=== PATIENT | male | born 1935 | race Caucasian/White ===

== ENCOUNTER 2017-06-13 16:12 | Inpatient (IN) ==
[2017-06-13] MEDS ORDERED: Pantoprazole 80 MG in 0.9 % Sodium Chloride 50 ML IVPB ONE (16:24)
[2017-06-13] MEDS ORDERED: 0.9 % Sodium Chloride 1,000 ML IVC ONE (16:24)
[2017-06-13] MEDS ORDERED: Pantoprazole 40 MG in 0.9 % Sodium Chloride Mini Bag 100 ML IVC SCH (16:30)
[2017-06-13 16:58] LABS: Eosinophils % 0.5 %; Immature Granulocytes % 0.2 % (0-4); Mean Corpuscular Volume 101.3 fL (83.0-100.0)
[2017-06-13 16:59] LABS: Basophils % 0.5 %; Hematocrit 15.3 % (37.5-50.1); Lymphocytes # 1.1 K/mcL (0.6-4.6); Mean Corpuscular HGB Conc 32.7 g/dL (31.6-35.5); Mean Corpuscular Hemoglobin 33.1 pg (28.0-33.3); Mean Platelet Volume 13.5 fL (9.4-12.4); Monocytes # 0.3 K/mcL (0.0-1.3); Monocytes % 7.9 %; Neutrophils # 2.8 K/mcL (1.6-8.9); Red Blood Count 1.51 M/mcL (4.19-5.50); Red Cell Distribution Width 14.7 % (11.5-14.5); Segmented Neutrophils % 65.9 %
[2017-06-13 17:05] LABS: INR 1.7
[2017-06-13 17:07] LABS: Activated Partial Thrombo Time 32.1 Seconds (26.0-36.0)
[2017-06-13 17:08] LABS: Calcium 8.8 mg/dL (8.6-10.8)
[2017-06-13 17:15] LABS: Platelet Count 30 K/mcL (140-400)
[2017-06-13] MEDS: Pantoprazole 80 MG in 0.9 % Sodium Chloride 250 ML IVC SCH (17:27)
--- NOTE | 2017-06-13 17:37 | Emergency Department Note ---
Disposition Clinical Impression: Severe anemia, Thrombocytopenia, Hyperkalemia, Acute kidney injury GI bleed Qualifiers: GI bleed type/associated pathology: unspecified gastrointestinal hemorrhage type Qualified Code(s): K92.2 - Gastrointestinal hemorrhage, unspecified Leukopenia Qualifiers: Leukopenia type: unspecified Qualified Code(s): D72.819 - Decreased white blood cell count, unspecified Disposition: Admitted As Inpatient Condition: Undetermined Time of Disposition: 18:00 GI Bleed HPI - General Chief complaint: ED GI Bleed Stated complaint: GI bleed/low HGB 5.4/elevated Trop 0.83 Time Seen by Provider: 06/13/17 16:19 Source: patient, family, EMS, other Limitations: no limitations Nursing Notes Reviewed: Yes Vital Signs Reviewed: Yes - History of Present Illness HPI Narrative: 82-year-old male with past medical history for CHF, COPD, chronic kidney disease and diabetes and hypertension who was transferred from the [facility] secondary to severe anemia with possible GI bleed per history from family who states patient has been having bright red blood per rectum 4 days and is currently on [place]. Patient had hemoglobin checked 1 week ago which was 10. [facility]6. Patient is currently symptomatic with weakness pallor and inability to ambulate - Related Data Home Medications Medication Instructions Recorded Confirmed Apixaban [Eliquis] 2.5 mg PO BID 06/13/17 06/13/17 Aspirin 81 mg PO DAILY 06/13/17 06/13/17 Atorvastatin Calcium [Lipitor] 20 mg PO HS 06/13/17 06/13/17 Carvedilol 3.125 mg PO BID 06/13/17 06/13/17 Cholecalciferol (D-3) [Vitamin D] 2,000 unit PO DAILY 06/13/17 06/13/17 Collagenase Oint [Santyl] 1 appl TP DAILY 06/13/17 06/13/17 Furosemide [Lasix] 30 mg PO BID 06/13/17 06/13/17 Levothyroxine [Synthroid] 125 mcg PO 0630 06/13/17 06/13/17 Lidocaine Patch [Lidoderm 5% patch] 1 each TP DAILY 06/13/17 06/13/17 Naloxone HCl [Narcan] 4 mg NS AD PRN 06/13/17 06/13/17 Polyethylene Glycol 3350 [MiraLAX] 17 gm PO DAILY PRN 06/13/17 06/13/17 Pregabalin [Lyrica] 75 mg PO AD 06/13/17 06/13/17 Sod Chloride/B-6/Zinc Acet/Ca 1 - 3 spray TP DAILY 06/13/17 06/13/17 [Wound Cleanser] Allergies Allergy/AdvReac Type Severity Reaction Status Date / Time ciprofloxacin [From Cipro] AdvReac Unknown Verified 06/13/17 19:28 Review of Systems: Patient Denies fevers, chills, nausea, vomiting, chest pain, Diarrhea, dysuria. Patient admits to weakness, shortness of breath All systems ED: reviewed and negative except as stated. Review of Systems: As Per HPI Constitutional: Denies: fever Past Medical History - Past Medical History Attestation: Yes The following information was validated with the patient. Source: patient Medical history: Reports: atrial fibrillation, CHF, coronary artery disease, diabetes, GERD, hyperlipidemia, hypertension, renal disease, thyroid disease, other Psychiatric history: Reports: anxiety, depression - Social History Smoking Status: Former smoker Smokeless Tobacco Status: Yes Alcohol use: Reports: none Drug use: Reports: none Physical Exam Vital Signs Temperature 97.6 F 06/13/17 16:17 Pulse Rate 80 06/13/17 16:17 Respiratory Rate 20 06/13/17 16:17 Blood Pressure 111/52 06/13/17 16:17 O2 Sat by Pulse Oximetry 99 06/13/17 16:17 Temperature 97.6 F 06/13/17 16:17 Pulse Rate 80 06/13/17 16:30 Respiratory Rate 24 06/13/17 16:30 Blood Pressure 117/55 06/13/17 16:30 O2 Sat by Pulse Oximetry 99 06/13/17 16:30 Oxygen Delivery Oxygen Delivery Nasal Cannula Patient's 82-year-old male who is alert and oriented 3 with visible pallor but no diaphoresis. Patient is able to speak but has some conversational dyspnea while lying down. Rectal exam at bedside showed no gross hematuria. Dark stool in rectal vault - General Limitations: no limitations General appearance: alert - Head Head exam: atraumatic, normocephalic, normal inspection - Eye Eye exam: Present: normal appearance, PERRL, EOMI - ENT ENT exam: normal exam, normal oropharynx, mucous membranes moist - Neck Neck exam: Present: normal inspection, full ROM, trachea midline - Chest Chest inspection: Present: normal inspection, symmetric chest wall rise. Absent : tenderness, rash - Respiratory Respiratory exam: Present: normal lung sounds bilaterally - Cardiovascular Cardiovascular exam: Present: regular rate, normal rhythm, normal heart sounds - Abdominal Exam Abdominal exam: Present: soft, Non-Tender. Absent: tenderness, distention, guarding, rebound, rigidity - Extremities Exam Extremities exam: Absent: pedal edema - Back Exam Back exam: Absent: CVA tenderness (R), CVA tenderness (L) - Neurological Exam Neurological exam: Present: alert, oriented X3 Course - Consultations Consultation #1: Patient is accepted for admission by hospitalist Dr. Cuellar. Time: 17:52 Consultation #2: Dr. Espinoza of endoscopy as agreed to see the patient. He requests 5 mg of vitamin K. States the patient's has not had any active bleeding for one day and sees no need to give prothrombin complex at this time. He states he will make further orders for the patient. Time: 18:03 Vital Signs Temperature 97.6 F 06/13/17 16:17 Pulse Rate 80 06/13/17 16:17 Respiratory Rate 20 06/13/17 16:17 Blood Pressure 111/52 06/13/17 16:17 O2 Sat by Pulse Oximetry 99 06/13/17 16:17 Temperature 96.8 F L 06/14/17 15:46 Pulse Rate 83 06/14/17 18:00 Respiratory Rate 24 06/14/17 18:00 Blood Pressure 179/81 06/14/17 18:00 O2 Sat by Pulse Oximetry 95 06/14/17 18:00 Oxygen Delivery Oxygen Delivery Nasal Cannula GI Bleed - [facility] Narrative Medical decision making narrative: Patient transferred from the [place] emergency department for GI bleed with a hemoglobin of 5.4. patient was examined and determined to be clinically symptomatic for anemia. Rectal exam showed no hematochezia or gross blood. Patient's labs show he of 5.0 upon recheck. IV normal salineordered and initiatedtyped and crossmatch initiated, patient is currently maintaining vital signs within harshal but is in a critical situation and will require transfusion and close watch in ICU. patient's chemistries have noLevit is BUN/creatinine and potassium and patient also has an elevated troponin of 1.11. patient was accepted for admission by hospitalist . Dr. Espinoza has agreed to cover for endoscopy. - Lab Data Lab results reviewed: Yes I reviewed the patient's lab results. Lab results narrative: Short CBC 06/14/17 06/14/17 06/14/17 Range/Units 18:15 07:59 01:32 WBC 6.3 (4.3-11.1) K/mcL Hgb 8.0 L 7.4 L D 5.3 L* (12.9-16.9) g/dL Hct 23.5 L 22.5 L 16.5 L (37.5-50.1) % Plt Count 41 L (140-400) K/mcL Neutrophils # 4.3 (1.6-8.9) K/mcL BMP 06/14/17 Range/Units 05:10 Sodium 139 (136-145) mEq/L Potassium 5.7 H (3.5-4.5) mEq/L Chloride 106 (98-109) mEq/L Carbon Dioxide 13 L (19-29) mEq/L BUN 64 H (8-26) mg/dL Creatinine 2.38 H (0.72-1.25) mg/dL Glucose 129 H (70-99) mg/dL Calcium 8.3 L (8.6-10.8) mg/dL Cardiac Enzymes 06/14/17 06/13/17 Range/Units 05:10 23:33 Troponin I 1.46 H* 1.11 H* (0-0.03) ng/mL Liver Function 06/14/17 Range/Units 05:10 Total Bilirubin 1.8 H (0.2-1.2) mg/dL AST 440 H (5-34) Units/L ALT 523 H (0-55) Units/L Alkaline Phosphatase 76 (38-126) Units/L Albumin 2.8 L (3.5-5.0) g/dL Result diagrams: 06/14/17 18:15 06/14/17 05:10 Lab Results 06/13/17 06/13/17 06/13/17 Range/Units 16:49 16:49 16:49 WBC 4.2 L (4.3-11.1) K/mcL RBC 1.51 L (4.19-5.50) M/mcL Hgb 5.0 L* (12.9-16.9) g/dL Hct 15.3 L (37.5-50.1) % MCV 101.3 H (83.0-100.0) fL MCH 33.1 (28.0-33.3) pg MCHC 32.7 (31.6-35.5) g/dL RDW 14.7 H (11.5-14.5) % Plt Count 30 L* (140-400) K/mcL MPV 13.5 H (9.4-12.4) fL Immature Gran % 0.2 (0-4) % Seg Neutrophils % 65.9 % Lymphocytes % 25.0 % Monocytes % 7.9 % Eosinophils % 0.5 % Basophils % 0.5 % Neutrophils # 2.8 (1.6-8.9) K/mcL Lymphocytes # 1.1 (0.6-4.6) K/mcL Monocytes # 0.3 (0.0-1.3) K/mcL Eosinophils # 0.0 (0.0-0.6) K/mcL Basophils # 0.0 (0.0-0.2) K/mcL PT 18.0 H (9.4-12.1) Seconds INR 1.7 APTT 32.1 (26.0-36.0) Seconds Sodium 136 (136-145) mEq/L Potassium 5.0 H (3.5-4.5) mEq/L Chloride 103 (98-109) mEq/L Carbon Dioxide 18 L (19-29) mEq/L BUN 55 H (8-26) mg/dL Creatinine 2.18 H (0.72-1.25) mg/dL Est GFR ( Amer) 35 L (> 60) Est GFR (Non-Af Amer) 29 L (> 60) BUN/Creatinine Ratio 25 (6-26) Glucose 139 H (70-99) mg/dL Calculated Osmolality 299 (280-300) Calcium 8.8 (8.6-10.8) mg/dL Troponin I (0-0.03) ng/mL Blood Type Antibody Screen Antibody Identification MTS Gel Crossmatch 06/13/17 06/13/17 Range/Units 16:49 16:49 WBC (4.3-11.1) K/mcL RBC (4.19-5.50) M/mcL Hgb (12.9-16.9) g/dL Hct (37.5-50.1) % MCV (83.0-100.0) fL MCH (28.0-33.3) pg MCHC (31.6-35.5) g/dL RDW (11.5-14.5) % Plt Count (140-400) K/mcL MPV (9.4-12.4) fL Immature Gran % (0-4) % Seg Neutrophils % % Lymphocytes % % Monocytes % % Eosinophils % % Basophils % % Neutrophils # (1.6-8.9) K/mcL Lymphocytes # (0.6-4.6) K/mcL Monocytes # (0.0-1.3) K/mcL Eosinophils # (0.0-0.6) K/mcL Basophils # (0.0-0.2) K/mcL PT (9.4-12.1) Seconds INR APTT (26.0-36.0) Seconds Sodium (136-145) mEq/L Potassium (3.5-4.5) mEq/L Chloride (98-109) mEq/L Carbon Dioxide (19-29) mEq/L BUN (8-26) mg/dL Creatinine (0.72-1.25) mg/dL Est GFR ( Amer) (> 60) Est GFR (Non-Af Amer) (> 60) BUN/Creatinine Ratio (6-26) Glucose (70-99) mg/dL Calculated Osmolality (280-300) Calcium (8.6-10.8) mg/dL Troponin I 1.10 H* (0-0.03) ng/mL Blood Type O POSITIVE Antibody Screen POSITIVE Antibody Identification Anti-E MTS Gel Crossmatch See Detail - Radiology Data Radiology results reviewed: Yes I reviewed the patient's radiology results. Chest X-Ray 06/13/17 16:24 IMPRESSION: Limited negative portable chest radiograph. D/ / Miguel Bull MD / Miguel Bull MD Interpreting Provider: Miguel Bull MD - EKG Data EKG attestation: Yes I reviewed and interpreted this EKG. EKG results narrative: EKG taken 06/13/2017 at 1636 hrs. shows a paced rhythm at a rate of [address] elevations in leads patient's shows ST depression in leads 2, aVL, V4, V5 and V6 which is new when compared to previous EKG taken in June 2014. Attestation Statement - Attestation Attestation: I, Moises Wood, examined this patient and my medical decision-making was reviewed with the [employer] SPECIALIST/PA/Advanced Practice Nurse/Resident Physician. I agree with the documented findings, disposition and treatment plan as described except to the extent set forth below. 82-year-old male sent to the emergency department from the [place] for concerns of GI bleeding. Patient has had multiple episodes of bright red blood per rectum over the past week. He also takes iron pills so he has also had multiple black stools. Patient's hemoglobin dropped significantly over the past week. Patient is pale and has generalized weakness on exam and emergency department. Patient has not had hematochezia or diarrhea since yesterday. Last dose of Elliquis was this morning. Patient's hemoglobin returned at 5.0, patient's platelets returned at 30. I ordered platelet and red blood cell transfusion. Patient will be admitted to medicine for further care and evaluation. Resident spoke with the endoscopist who evaluated patient in the emergency department. Endoscopist requested 5 mg of vitamin K.
--- NOTE | 2017-06-13 18:50 | Internal Medicine Consult Note ---
Date of Encounter: 06/13/17 Time of Encounter: 18:48 - Assessment and Plan (1) Lower GI bleeding Current Visit: Yes Status: Acute Assessment and plan: This appears to be fairly significant with a 5 drop in hemoglobin over the last 2 weeks. Some of this also may be chronic, but again diverticular bleeding would be the most likely source, this does not appear to be colitis. AVMs would be less likely. He has not been unstable, therefore I do not believe he has upper GI bleeding. This is certainly compounded by platelet therapy, along with Eliquis. This is also compounded by thrombocytopenia which could be due to ITP, myelodysplastic syndrome, or something more ominous. I had a long discussion with the [id number] at this time, he is not a candidate at this time for endoscopy given his current frail state. He needs at least 24 hours if not more of tuneup before we can consider endoscopy. There is no way at this time he could get a prep down risk of aspiration is just too high. His prognosis therefore is somewhat guarded (2) Acute blood loss anemia Current Visit: Yes Status: Acute (3) Macrocytosis Current Visit: Yes Status: Acute Assessment and plan: To consider myelodysplasia, thyroid disease, or B12 or folate deficiency. (4) Hypoprothrombinemia Current Visit: Yes Status: Acute Assessment and plan: Due to antibiotics in the recent past, along with thrombin inhibitors. We will give vitamin K for an elevated INR, (5) Thrombocytopenia Current Visit: Yes Status: Acute Assessment and plan: Etiology unknown at this time. (6) CKD stage 3 due to type 2 diabetes mellitus Current Visit: Yes Status: Acute Internal Medicine - CN: HPI - Data of Consult Requesting Physician: Suraj Cuellar MD - Consult Narrative Reason for consult: Rectal bleeding, hemoglobin of bit of 5 History of present illness: Mr. Lynn is a 82 year old male who is seen in the emergency room. I was actually asked to see him at the request of the ER resident, and the hospitalist service. He's had 2 days of progressive weakness, in the last 5 days he's had some bright red rectal bleeding, which is improved over the past 24 hours. He's had little appetite, no fever, most of the data is taken from the [id number], he is lying in bed, somewhat restless, minimally tachypneic. Somewhat disoriented. Not diaphoretic. Moderately pale. This gentleman takes an aspirin a day along with Xarelto due to chronic atrial fibrillation. His daughter in law states that 2 weeks ago, [facility], he had significant bleeding from a diabetic ulcer which is now taken care of and no bleeding recently. Past Med Surg Social Fam HX - Past Medical History Medical history: atrial fibrillation, CHF, coronary artery disease, diabetes, GERD, hyperlipidemia, hypertension, renal disease, thyroid disease, other Psychiatric history: anxiety, depression - Past Surgical History Surgical History: appendectomy, coronary bypass (CABG), other (Multiple debridements to the foot for diabetic ulceration) - Social History Smoking Status: Former smoker Smokeless Tobacco Status: Yes Alcohol use: none Drug use: none ROS unobtainable: due to mental status Internal Medicine - CN: Meds 3 Allergy/AdvReac Type Severity Reaction Status Date / Time No Known Allergies Allergy Verified 06/13/17 16:16 Internal Medicine - CN: Exam - Constitutional Vitals: Temp Pulse Resp BP Pulse Ox 97.6 F 80 20 133/66 99 06/13/17 16:17 06/13/17 16:30 06/13/17 18:18 06/13/17 18:18 06/13/17 16:30 General appearance IM: Present: A&O X 1, disheveled, mild distress - Head Head exam: Present: atraumatic Additional comments: Appears somewhat edematous, and puffy. With mild macroglossia. - Eye Eye exam: Present: EOMI, sclera anicteric. Absent: conjuntiva pink - Respiratory Respiratory exam: Present: decreased breath sounds, CTAB, tachypnea. Absent: wheezes Additional comments: Poor shallow effort. - Cardiovascular Cardiovascular exam IM: Present: RRR Additional comments: Distant heart sounds, he is paced on the monitor, there are no murmurs noted. - GI/Abdominal GI/Abdominal exam IM: Present: normal bowel sounds, soft, no peritoneal signs. Absent: mass, pulsatile mass, rebound, rigid, splenomegaly - Rectal Rectal exam: Present: deferred Internal Medicine - CN: Reslt - Labs CBC & Chem 7: 06/13/17 16:49 06/13/17 16:49 - ABG Interpretation ABG results: PT/INR, D-dimer PT 18.0 Seconds (9.4-12.1) H 06/13/17 16:49 Consult Discharge Plan - Plan [facility]errals: [facility] [Primary Care Provider[facility] - Khadijah Carrasco MD [Family Provider] -
[2017-06-13] MEDS ORDERED: 0.9 % Sodium Chloride 250 ML ONE (21:24)
[2017-06-13] MEDS ORDERED: Naloxone 0.4 MG/ML INJ IVP PRN (22:54)
[2017-06-13] MEDS ORDERED: Ondansetron 4 MG/2 ML VIAL IVP PRN (22:54)
--- NOTE | 2017-06-13 23:06 | Internal Med History&Physical ---
Date of Encounter: 06/13/17 Time of Encounter: 23:04 Assessment and Plan (1) Chronic anticoagulation Current visit: Yes Status: Acute Supple anticoagulation due to GI bleed. (2) Coronary artery disease Current visit: Yes Status: Acute Hold antiplatelets. Qualifiers: Coronary Disease-Associated Artery/Lesion type: [place] artery [place] vs. transplanted heart: [place] heart Associated angina: without angina Qualified Code(s): I25.10 - Atherosclerotic heart disease of [place] coronary artery without angina pectoris (3) CHF (congestive heart failure) Current visit: Yes Status: Acute Gentle IV fluid hydration. We will obtain echocardiogram records from the [place]. Qualifiers: Congestive heart failure type: unspecified congestive heart failure type Congestive heart failure chronicity: chronic Qualified Code(s): I50.9 - Heart failure, unspecified (4) Lower GI bleeding Current visit: Yes Status: Acute Consult to GI. Nothing by mouth. IV Protonix. Serial H&H. (5) Acute blood loss anemia Current visit: Yes Status: Acute Likely secondary to lower GI bleed. Transfuse 3 units of PRBC. (6) Thrombocytopenia Current visit: Yes Status: Acute Transfuse one unit platelets to maintain platelet count above 50,000. Per chart review last platelet count we have in our EMR is 196 k from June 2014. We will consult hematology. (7) CKD stage 3 due to type 2 diabetes mellitus Current visit: Yes Status: Acute Insulin sliding scale and blood glucose fingersticks every 6 hours. Avoid nephrotoxins. Monitor kidney function. (8) Elevated troponin Current visit: Yes Status: Acute Secondary to GI bleed and coronary artery disease. EKG reviewed by myself shows ventricularly paced rhythm 87 bpm. No evidence of ischemia on the EKG. We will trend troponin. (9) Code status needs review Current visit: Yes Status: Acute Patient is currently somnolent and lethargic and does not answer questions appropriately and therefore does not have decision-making capacity. Per review of [facility] paperwork he is DNR CC, documented to be addressed by the [facility] staff with the patient at a time when he had decision-making capacity. I will place a DNR CCA DNI order in the chart and will readdress with the patient and family tomorrow. Internal Medicine - H&P: HPI Chief complaint: Rectal bleeding Admitted From: Emergency Dept Plans for Post Hospital Care: Home History of present illness: Mr. Lynn is a 82 year old male with past medical history significant for atrial fibrillation on chronic anticoagulation with Eliquis, CHF, CAD, GERD, hypertension, hyperlipidemia, diabetes, chronic renal insufficiency was brought to the hospital for evaluation of weakness and rectal bleeding. He is a very poor historian. History is obtained from records. He had recently been admitted to the [facility] and discharged home one week ago. He had suffered a fall with bruising but no significant injury. He was sent to the hospital for evaluation of rectal bleeding and weakness. He currently reports no chest pain or shortness of breath. Per patient's nurse has had no rectal bleeding over last 2 hours. Family history was reviewed and found to be noncontributory due to the patient' s advanced age Past Med Surg Social Fam HX - Past Medical History Medical history: atrial fibrillation, CHF, coronary artery disease, diabetes, GERD, hyperlipidemia, hypertension, renal disease, thyroid disease, other Psychiatric history: anxiety, depression - Past Surgical History Surgical History: appendectomy, coronary bypass (CABG), other - Social History Smoking Status: Former smoker Smokeless Tobacco Status: Yes Alcohol use: none Drug use: none Internal Medicine - H&P: Meds Apixaban [Eliquis] 2.5 mg PO BID 06/13/17 [History] Aspirin 81 mg PO DAILY 06/13/17 [History] Atorvastatin Calcium [Lipitor] 20 mg PO HS 06/13/17 [History] Carvedilol 3.125 mg PO BID 06/13/17 [History] Cholecalciferol (D-3) [Vitamin D] 2,000 unit PO DAILY 06/13/17 [History] Collagenase Oint [Santyl] 1 appl TP DAILY 06/13/17 [History] Furosemide [Lasix] 30 mg PO BID 06/13/17 [History] Levothyroxine [Synthroid] 125 mcg PO 0630 06/13/17 [History] Lidocaine Patch [Lidoderm 5% patch] 1 each TP DAILY 06/13/17 [History] Naloxone HCl [Narcan] 4 mg NS AD PRN 06/13/17 [History] Polyethylene Glycol 3350 [MiraLAX] 17 gm PO DAILY PRN 06/13/17 [History] Pregabalin [Lyrica] 75 mg PO AD 06/13/17 [History] Sod Chloride/B-6/Zinc Acet/Ca [Wound Cleanser] 1 - 3 spray TP DAILY 06/13/17 [ History] 3 Allergy/AdvReac Type Severity Reaction Status Date / Time ciprofloxacin [From Cipro] AdvReac Unknown Verified 06/13/17 19:28 All Systems PM: A 10-system review of systems was performed and is negative for pertinent findings except as documented above in the HPI. - Constitutional Vitals: Temp Pulse Resp BP Pulse Ox 97.6 F 78 20 107/43 99 06/13/17 21:46 06/13/17 21:46 06/13/17 21:46 06/13/17 21:46 06/13/17 21:46 General appearance: Present: A&O X 1, disheveled, no acute distress - Eye Eye exam: Present: PERRL, conjuntiva pink, sclera anicteric Pupils: Present: PERRL - Respiratory Respiratory exam: Present: CTAB. Absent: accessory muscle use, rales, rhonchi, wheezes - Cardiovascular Cardiovascular exam: Present: RRR, +S1, +S2. Absent: diastolic murmur, gallop, rubs, systolic murmur - GI/Abdominal GI/Abdominal exam: Present: normal bowel sounds, soft, no peritoneal signs. Absent: distended, tenderness - Extremities Exam Extremities exam: Present: warm, radial pulses palpable and symmetrical. Absent : calf tenderness, cyanotic, pedal edema - Skin Skin exam: Present: dry, intact Additional comments: Right upper extremity bruise. Right lower leg bruising. Left great toe wound. Internal Med - H&P Results - Labs CBC & Chem 7: 06/13/17 16:49 06/13/17 16:49
[2017-06-14 01:39] LABS: Hematocrit 16.5 % (37.5-50.1)
[2017-06-14 01:42] LABS: Hemoglobin 5.3 g/dL (12.9-16.9)
[2017-06-14] MEDS ORDERED: Furosemide 40 MG/4 ML VIAL IVP ONE (01:49)
[2017-06-14] MEDS ORDERED: Furosemide 40 MG/4 ML VIAL ONE (01:51)
[2017-06-14] MEDS: Pantoprazole 80 MG in 0.9 % Sodium Chloride 250 ML IVC SCH ×2 (02:36→13:59)
[2017-06-14] MEDS ORDERED: 0.9 % Sodium Chloride 250 ML ONE (03:09)
[2017-06-14] MEDS: 0.9 % Sodium Chloride 1,000 ML IVC SCH ×2 (04:06→19:59)
[2017-06-14] MEDS ORDERED: *HR* LORazepam 2 MG/ML VIAL ONE (04:37)
[2017-06-14] MEDS: *HR* LORazepam 2 MG/ML VIAL IVP PRN ×2 (04:40→19:20)
[2017-06-14 05:34] LABS: INR 2.2; Prothrombin Time 23.9 Seconds (9.4-12.1)
[2017-06-14 05:48] LABS: Albumin 2.8 g/dL (3.5-5.0); Albumin/Globulin Ratio 0.9 (1.1-2.2); Bilirubin,Total 1.8 mg/dL (0.2-1.2); Calcium 8.3 mg/dL (8.6-10.8); Globulin 3.1 g/dL (2.4-3.5); Magnesium 1.8 mg/dL (1.6-2.6); Potassium 5.7 mEq/L (3.5-4.5); Total Protein 5.9 g/dL (6.0-8.3)
[2017-06-14 08:34] LABS: Eosinophils % 0.2 %; Nucleated Red Blood Cells 0.5 /100 WBC (0)
[2017-06-14 08:36] LABS: Hematocrit 22.5 % (37.5-50.1); Hemoglobin 7.4 g/dL (12.9-16.9); Immature Granulocytes % 0.3 % (0-4); Immature Platelets 20.9 % (1.1-6.1); Lymphocytes # 1.1 K/mcL (0.6-4.6); Lymphocytes % 17.4 %; Mean Corpuscular HGB Conc 32.9 g/dL (31.6-35.5); Mean Corpuscular Hemoglobin 31.9 pg (28.0-33.3); Mean Platelet Volume 12.7 fL (9.4-12.4); Monocytes # 0.9 K/mcL (0.0-1.3); Monocytes % 14.4 %; Neutrophils # 4.3 K/mcL (1.6-8.9); Red Blood Count 2.32 M/mcL (4.19-5.50); Red Cell Distribution Width 16.5 % (11.5-14.5); Segmented Neutrophils % 67.7 %
[2017-06-14 08:37] LABS: Platelet Count 41 K/mcL (140-400)
[2017-06-14] MEDS: ZINC ACET TP SCH (09:58)
[2017-06-14] MEDS: SOD CHLORIDE TP SCH (09:58)
[2017-06-14] MEDS: [UNRECOGNIZED DRUG - OTHER] TP SCH (09:58)
[2017-06-14] MEDS: B6 TP SCH (09:58)
--- NOTE | 2017-06-14 10:46 | Event Note ---
Date of Encounter: 06/14/17 Time of Encounter: 10:00 Patient remains somnolent; no further bleeding per nursing. He's had no further GI bleeding. Has recieved platlet pack, as well as 3 units of blood with HGB over 7 at this time. Will sign off for now. Noted DNR order.
[2017-06-14] MEDS ORDERED: *HR* FentaNYL (PF) 100 MCG/2 ML VIAL IVP ONE (11:51)
--- NOTE | 2017-06-14 14:53 | Internal Med Progress Note ---
Date of Encounter: 06/14/17 Time of Encounter: 14:54 - Assessment and plan (1) Altered awareness, transient Current Visit: Yes Status: Acute (2) GI bleed Current Visit: Yes Status: Acute Qualifiers: GI bleed type/associated pathology: unspecified gastrointestinal hemorrhage type Qualified Code(s): K92.2 - Gastrointestinal hemorrhage, unspecified (3) Acute blood loss anemia Current Visit: Yes Status: Acute (4) Thrombocytopenia Current Visit: Yes Status: Acute (5) CKD stage 3 due to type 2 diabetes mellitus Current Visit: Yes Status: Acute (6) Chronic anticoagulation Current Visit: Yes Status: Acute (7) Elevated troponin Current Visit: Yes Status: Acute - Time Spent With Patient The patient is confused, with elevated liver enzyme, total output hepatic encephalopathy we will check ammonia level. Close monitoring of electrolytes, add vitamin B1 , we will transfuse 1 unit of blood, stat ABG and chest x-ray. Close monitoring of volume status. If his blood gas is normal may consider small dose of respirdal. Add Kayexalate enema. Discuss with cardiology about patient elevated troponin most likely demand ischemia, continue Protonix drip, check H&H at 6:00 PM transfused 1 unit of blood if hemoglobin less than 8 Greater than 35 minutes - Subjective Interval history: Patient is so lethargic today., Patient is so restless at bed. Very confused. - Constitutional Vitals: Temp Pulse Resp BP Pulse Ox 97.1 F L 80 20 121/64 92 06/14/17 12:54 06/14/17 14:00 06/14/17 14:00 06/14/17 14:00 06/14/17 14:00 General appearance: Present: mild distress, morbidly obese - Head Head exam: Present: atraumatic, normocephalic - Neck Neck exam general surgery: Present: supple, trachea midline. Absent: lymphadenopathy - Respiratory Respiratory exam: Present: decreased breath sounds (Markedly diminished breathing sounds bilateral lung bases up to midlung). Absent: accessory muscle use, rales, rhonchi, wheezes - Cardiovascular Cardiovascular exam: Present: RRR, +S1, +S2. Absent: diastolic murmur, gallop, rubs, systolic murmur - GI/Abdominal GI/Abdominal exam: Present: normal bowel sounds, soft, no peritoneal signs. Absent: distended, tenderness - Extremities Exam Extremities exam: Present: warm, radial pulses palpable and symmetrical. Absent : calf tenderness, cyanotic, pedal edema Internal Medicine: Result - Labs CBC & Chem 7: 06/14/17 07:59 06/14/17 05:10 Labs: Short CBC 06/14/17 06/14/17 Range/Units 01:32 07:59 WBC 6.3 (4.3-11.1) K/mcL Hgb 5.3 L* 7.4 L D (12.9-16.9) g/dL Hct 16.5 L 22.5 L (37.5-50.1) % Plt Count 41 L (140-400) K/mcL Neutrophils # 4.3 (1.6-8.9) K/mcL BMP 06/14/17 05:10 Sodium 139 Potassium 5.7 H Chloride 106 Carbon Dioxide 13 L BUN 64 H Creatinine 2.38 H Glucose 129 H Calcium 8.3 L Cardiac Enzymes 06/13/17 06/14/17 Range/Units 23:33 05:10 Troponin I 1.11 H* 1.46 H* (0-0.03) ng/mL Liver Function 06/14/17 Range/Units 05:10 Total Bilirubin 1.8 H (0.2-1.2) mg/dL AST 440 H (5-34) Units/L ALT 523 H (0-55) Units/L Alkaline Phosphatase 76 (38-126) Units/L Albumin 2.8 L (3.5-5.0) g/dL - ABG Interpretation ABG results: PT/INR, D-dimer PT 23.9 Seconds (9.4-12.1) H 06/14/17 05:10 - VTE Documentation of Mechanical Device: Venous foot pump, device Consult Discharge Plan - Plan Referrals: Khadijah Carrasco MD [Family Provider] - [facility] [Primary Care Provider] -
[2017-06-14] MEDS ORDERED: Thiamine (B-1) 100 MG in D5% in Water 50 ML IVPB STA (15:12)
[2017-06-14 15:19] LABS: ABG Base Excess -6 mEq/L (-2 to 3); ABG HCO3 18 mEq/L (21-27); ABG Oxygen Saturation 93 % (95-98); ABG PCO2 33 mmHg (35-45); ABG PH 7.36 pH Units (7.32-7.45); ABG PO2 69 mmHg (85-104); ABG TCO2 19 mEq/L (20-26)
[2017-06-14] MEDS: Furosemide 20 MG/2 ML VIAL IVP ONE ×2 (15:27→15:35)
[2017-06-14] MEDS: RisperiDONE-M 1 MG TAB.RAPDIS PO SCH (15:31)
[2017-06-14] MEDS ORDERED: *HR* Dextrose 50 % in Water (Syg) 50 ML SYRINGE IVP PRN (15:56)
[2017-06-14] MEDS ORDERED: D5% in Water 1,000 ML IVC PRN (15:56)
[2017-06-14] MEDS ORDERED: Dextrose Gel 15 GM PO PRN ×2 (15:56)
--- NOTE | 2017-06-14 16:00 | Cardiology Consult Note ---
Date of Encounter: 06/15/17 Time of Encounter: 14:00 Assessment and Plan (1) Elevated troponin Current Visit: Yes Status: Acute Note minimal troponin elevation, of unclear significance, no acute EKG changes, suspect due to demand ischemia, will continue to trend enzemes and EKGs, would not plan provocative testing of invasive strategy unless pt develps chest pain or new EKG findings of ischemia. However in light of hx CAD post CABG '98, will start topical nitrates, order echo to eval for new wall motion abnormalites. (2) Coronary artery disease Current Visit: Yes Status: Chronic PT has known severe triple vessel disease, last provocative testing was over five years ago at the [facility], pt unable to compleat treadmill portion due to SOB Qualifiers: Coronary Disease-Associated Artery/Lesion type: [place] artery [place] vs. transplanted heart: [place] heart Associated angina: without angina Qualified Code(s): I25.10 - Atherosclerotic heart disease of [place] coronary artery without angina pectoris (3) CHF (congestive heart failure) Current Visit: Yes Status: Acute PTs reports he complains of shortness of breath frequently, has been unable to lie flat to sleep for several weeks, is non complaint with dietary sodium restrictions, daily exercise prescriped Qualifiers: Congestive heart failure type: unspecified congestive heart failure type Congestive heart failure chronicity: chronic Qualified Code(s): I50.9 - Heart failure, unspecified (4) Lower GI bleeding Current Visit: Yes Status: Acute (5) Chronic anticoagulation Current Visit: Yes Status: Acute (6) Confusion and disorientation Current Visit: Yes Status: Acute (7) Sick sinus syndrome due to sinoatrial node dysfunction Current Visit: Yes Status: Chronic Discussion w patient/family: The assessment and plan as outlined above was discussed with the patient and/or family members who expressed understanding and agreement. All questions were answered. Thank you for involving us in the care of your patient. Please call with any questions. History of Present Illness Consult date: 06/14/17 Requesting physician: Suraj Cuellar Consult reason: elevated troponin Chief complaint: rectal bleeding History of present illness: Mr. Lynn is a 82 year old male who presents with history of several weeks of weakness and rectal bleeding. He is chronically anticoagulated on Eliquis for primary stroke risk reduction for chronic a fib. He is confused, orientated to person only. Hx obtained from and son at bedside. He has also had several mechanical falls at home over the last several weeks, which his attributes to him feeling week. He becomes symptomatic with change in position from sitting to standing, and has had to hold onto something or someone to prevent falling when he first stands up. This sensation lasts up to a minute, and resolves if he stays standing and waits it out. He became confused intermittantly over the last several days. His reports this is the longest he has been confused. Past Med Surg Social Fam HX - Past Medical History Medical history: atrial fibrillation, CHF, coronary artery disease, diabetes, GERD, hyperlipidemia, hypertension, renal disease, thyroid disease, other Psychiatric history: anxiety, depression - Past Surgical History Surgical History: appendectomy, coronary bypass (CABG), other - Social History Smoking Status: Former smoker Smokeless Tobacco Status: Yes Alcohol use: none Drug use: none Medications and Allergies Apixaban [Eliquis] 2.5 mg PO BID 06/13/17 [History] Aspirin 81 mg PO DAILY 06/13/17 [History] Atorvastatin Calcium [Lipitor] 20 mg PO HS 06/13/17 [History] Carvedilol 3.125 mg PO BID 06/13/17 [History] Cholecalciferol (D-3) [Vitamin D] 2,000 unit PO DAILY 06/13/17 [History] Collagenase Oint [Santyl] 1 appl TP DAILY 06/13/17 [History] Furosemide [Lasix] 30 mg PO BID 06/13/17 [History] Levothyroxine [Synthroid] 125 mcg PO 0630 06/13/17 [History] Lidocaine Patch [Lidoderm 5% patch] 1 each TP DAILY 06/13/17 [History] Naloxone HCl [Narcan] 4 mg NS AD PRN 06/13/17 [History] Polyethylene Glycol 3350 [MiraLAX] 17 gm PO DAILY PRN 06/13/17 [History] Pregabalin [Lyrica] 75 mg PO AD 06/13/17 [History] Sod Chloride/B-6/Zinc Acet/Ca [Wound Cleanser] 1 - 3 spray TP DAILY 06/13/17 [ History] 3 Allergy/AdvReac Type Severity Reaction Status Date / Time ciprofloxacin [From Cipro] AdvReac Unknown Verified 06/13/17 19:28 ROS unobtainable: due to mental status (Some pertinent history obtained from pts and son, old records requested ) All Systems Review: A 10-system review of systems was performed and is negative for pertinent findings except as documented above in the HPI. Physical Examination Vital Signs, Last 4 Hours Temp Pulse Resp BP Pulse Ox 06/14/17 15:46 96.8 F L 80 22 128/104 94 06/14/17 15:00 81 20 155/66 94 06/14/17 14:00 80 20 121/64 92 06/14/17 13:00 76 16 153/66 94 06/14/17 12:54 97.1 F L 78 20 127/70 94 06/14/17 12:40 97.7 F 77 22 145/76 91 06/14/17 12:00 78 20 142/67 90 General: Other (Pt is confused, answers to name, does not know time or place, he does recognize and son. ) HEENT: Atraumatic, Normocephaly, Mucus Membranes Moist Neck: No JVD, Normal carotid pulses Cardiac: Reg Rate and Rhythm, Normal S1 and S2, No Murmur Lungs: Normal Breath Sounds Neuro: No focal deficits noted (confused, orientated x 1) Abdomen: Soft, Non-Tender (mildly distended, bowel sounds active. ) Skin: No rashes noted on visualized skin Musculoskeletal: No Chest Wall Tenderness Extremities: No Clubbing, No Cyanosis, Other (ulcer on tip of left great toe in surgical dressing. ) Results 06/15/17 04:33 06/14/17 05:10 Lab Results 06/13/17 06/14/17 06/14/17 23:33 01:32 05:10 WBC Hgb 5.3 L* Hct 16.5 L Plt Count INR 2.2 Sodium Potassium Chloride Carbon Dioxide BUN Creatinine Glucose Calcium Magnesium Total Bilirubin AST ALT Alkaline Phosphatase Troponin I 1.11 H* 06/14/17 06/14/17 06/14/17 05:10 05:10 07:59 WBC 6.3 Hgb 7.4 L D Hct 22.5 L Plt Count 41 L INR Sodium 139 Potassium 5.7 H Chloride 106 Carbon Dioxide 13 L BUN 64 H Creatinine 2.38 H Glucose 129 H Calcium 8.3 L Magnesium 1.8 Total Bilirubin 1.8 H AST 440 H ALT 523 H Alkaline Phosphatase 76 Troponin I 1.46 H* - EKG Interpretation EKG results cardiology: personally reviewed, ventricular paced rhythm Consult Discharge Plan - Plan Referrals: Khadijah Carrasco MD [Family Provider] - [facility],PCP [Primary Care Provider] -
[2017-06-14] MEDS: Nystatin SUSP 5 ML UD.LIQ PO SCH ×2 (17:23→19:56)
[2017-06-14] MEDS: Insulin LISPRO 300 UNITS/3 ML VIAL SQ SCH (17:32)
[2017-06-14 18:25] LABS: Hematocrit 23.5 % (37.5-50.1)
[2017-06-14 18:30] LABS: INR 2.2; Prothrombin Time 24.5 Seconds (9.4-12.1)
[2017-06-14 18:36] LABS: Phosphorous 5.1 mg/dL (2.3-4.7)
[2017-06-14] MEDS: Lactulose Oral Soln 20 GM/30 ML UDC PO SCH (19:56)
[2017-06-15] MEDS: Insulin LISPRO 300 UNITS/3 ML VIAL SQ SCH ×5 (00:18→23:59)
[2017-06-15] MEDS: *HR* LORazepam 2 MG/ML VIAL IVP PRN (00:29)
[2017-06-15] MEDS: Pantoprazole 80 MG in 0.9 % Sodium Chloride 250 ML IVC SCH ×2 (02:42→16:09)
[2017-06-15 05:05] LABS: Basophils % 0.4 %; Eosinophils # 0.1 K/mcL (0.0-0.6); Eosinophils % 1.5 %; Hematocrit 24.4 % (37.5-50.1); Hemoglobin 8.3 g/dL (12.9-16.9); Immature Granulocytes % 0.6 % (0-4); Lymphocytes # 0.8 K/mcL (0.6-4.6); Lymphocytes % 12.2 %; Mean Corpuscular Hemoglobin 32.2 pg (28.0-33.3); Mean Corpuscular Volume 94.6 fL (83.0-100.0); Monocytes # 0.8 K/mcL (0.0-1.3); Monocytes % 11.9 %; Red Blood Count 2.58 M/mcL (4.19-5.50); Red Cell Distribution Width 16.1 % (11.5-14.5); Segmented Neutrophils % 73.4 %
[2017-06-15 05:06] LABS: Platelet Count 32 K/mcL (140-400)
[2017-06-15 05:15] LABS: Phosphorous 3.6 mg/dL (2.3-4.7)
[2017-06-15 05:41] LABS: Platelet Estimate Marked Decrease (Normal)
[2017-06-15 08:07] LABS: INR 2.2
--- NOTE | 2017-06-15 09:04 | Oncology Inp Consult Note ---
Date of Encounter: 06/15/17 Time of Encounter: 09:00 Assessment and Plan (1) Severe anemia Status: Acute Assessment and plan: Cr anemia from prior labs, GI bleeding with Hgb of 5g, transferrin saturation still remains elevated, possibly due to ac bleed. B12, folate, TSH reviewed. Thrombocytopenia-recent hospitalization Rx for diabetic ulcer at [facility] d/marcel a wk ago, need to obtain prior labs and details of treatment. PS--few clumped/giant platelets, segmented neutrophils without immature blast looking cells. No tear drops or schiztocytes. He is s/p PRBC 4 and plt 1. Eliquis on hold. LFT abnormalities, elevated ammonia levels- Imaging US or Ct abd wo contrast to r/o cirrhosis or metastatic disease. GI bleed to be further evaluated with scope. Transfuse platelets if <30k and if he continues to have active bleeding. Rpt labs later today. Ordered further lab tests-SPEP, haptoglobulin, LDH, PS pathologist review. CT/MRI brain to further evaluate mental status/fall. PAtient is a DNR-CC Will follow up on above results. Discussed with medical attending. - Data of Consult Requesting Physician: Suraj Cuellar MD Primary Care Provider: [facility] Family Provider: Khadijah Carrasco - Consult Narrative Reason for consult: severe anemia, thrombocytopenia, bleeding History of present illness: Mr. Lynn is a 82 year old male with a medical history significant for atrial fibrillation, congestive heart failure, coronary artery disease outpatient anticoagulation with Eliquis, hypertension, diabetes mellitus status post admission to [facility] and discharged home a week ago for foot ulceration , weakness. Patient gives history as he is disoriented. Course patient is sent for further evaluation of his rectal bleeding, weakness. Patient presented to the ER with above symptoms and work showed hemoglobin of 5g, plt 32k, marked elevated AST/ALT, elevated bilirubin, renal insufficiency. Hematology consulted for thrombocytopenia. Prior lab work sfor comparision from . Cr anemia then. Had undergone scope for evaluation of suspected bleed in . Past Med Surg Social Fam HX - Past Medical History Medical history: atrial fibrillation, CHF, coronary artery disease, diabetes, GERD, hyperlipidemia, hypertension, renal disease, thyroid disease, other Psychiatric history: anxiety, depression - Past Surgical History Surgical History: appendectomy, coronary bypass (CABG), other - Social History Smoking Status: Former smoker Smokeless Tobacco Status: Yes Alcohol use: none Drug use: none Medications and Allergies Apixaban [Eliquis] 2.5 mg PO BID 06/13/17 [History] Aspirin 81 mg PO DAILY 06/13/17 [History] Atorvastatin Calcium [Lipitor] 20 mg PO HS 06/13/17 [History] Carvedilol 3.125 mg PO BID 06/13/17 [History] Cholecalciferol (D-3) [Vitamin D] 2,000 unit PO DAILY 06/13/17 [History] Collagenase Oint [Santyl] 1 appl TP DAILY 06/13/17 [History] Furosemide [Lasix] 30 mg PO BID 06/13/17 [History] Levothyroxine [Synthroid] 125 mcg PO 0630 06/13/17 [History] Lidocaine Patch [Lidoderm 5% patch] 1 each TP DAILY 06/13/17 [History] Naloxone HCl [Narcan] 4 mg NS AD PRN 06/13/17 [History] Polyethylene Glycol 3350 [MiraLAX] 17 gm PO DAILY PRN 06/13/17 [History] Pregabalin [Lyrica] 75 mg PO AD 06/13/17 [History] Sod Chloride/B-6/Zinc Acet/Ca [Wound Cleanser] 1 - 3 spray TP DAILY 06/13/17 [ History] 3 Allergy/AdvReac Type Severity Reaction Status Date / Time ciprofloxacin [From Cipro] AdvReac Unknown Verified 06/13/17 19:28 ROS unobtainable: due to mental status Review of systems: unable to be obtained Oncology - Exam - Constitutional Vitals: Temp Pulse Resp BP Pulse Ox 98.0 F 84 29 136/96 96 06/15/17 08:28 06/15/17 08:00 06/15/17 06:00 06/15/17 06:00 06/15/17 06:00 General appearance: mild distress, obese - Head Head exam: Present: atraumatic - ENT Additional comments: macroglossia, tongue coating - Respiratory Respiratory exam: Present: CTAB Additional comments: clear - Cardiovascular Cardiovascular exam: Present: +S1, +S2 - GI/Abdominal GI/Abdominal exam: Present: normal bowel sounds, soft Additional comments: non tender - Extremities Exam Extremities exam: Present: pedal edema Additional comments: toe ?ulceration in dressing - Neurological Exam Additional comments: alerted, not oriented, moves all 4 extremities. Not following any commands - Skin Additional comments: brusing upper ext, back Oncology - Results Labs: Short CBC 06/14/17 06/15/17 Range/Units 18:15 04:33 WBC 6.8 (4.3-11.1) K/mcL Hgb 8.0 L 8.3 L (12.9-16.9) g/dL Hct 23.5 L 24.4 L (37.5-50.1) % Plt Count 32 L (140-400) K/mcL Neutrophils # 5.0 (1.6-8.9) K/mcL Consult Discharge Plan - Plan Referrals: Khadijah Carrasco MD [Family Provider] - [facility] [Primary Care Provider] -
[2017-06-15] MEDS ORDERED: Furosemide 20 MG/2 ML VIAL IVP ONE ×3 (09:32→09:55)
[2017-06-15] MEDS: Nystatin SUSP 5 ML UD.LIQ PO SCH ×4 (09:53→21:47)
[2017-06-15] MEDS: RisperiDONE-M 1 MG TAB.RAPDIS PO SCH (09:54)
--- NOTE | 2017-06-15 10:00 | Pulmonology Consult Note ---
<Meghana Ramos M - Last Filed: 06/15/17 12:26> Date of Encounter: 06/15/17 Medications and Allergies Apixaban [Eliquis] 2.5 mg PO BID 06/13/17 [History] Aspirin 81 mg PO DAILY 06/13/17 [History] Atorvastatin Calcium [Lipitor] 20 mg PO HS 06/13/17 [History] Carvedilol 3.125 mg PO BID 06/13/17 [History] Cholecalciferol (D-3) [Vitamin D] 2,000 unit PO DAILY 06/13/17 [History] Collagenase Oint [Santyl] 1 appl TP DAILY 06/13/17 [History] Furosemide [Lasix] 30 mg PO BID 06/13/17 [History] Levothyroxine [Synthroid] 125 mcg PO 0630 06/13/17 [History] Lidocaine Patch [Lidoderm 5% patch] 1 each TP DAILY 06/13/17 [History] Naloxone HCl [Narcan] 4 mg NS AD PRN 06/13/17 [History] Polyethylene Glycol 3350 [MiraLAX] 17 gm PO DAILY PRN 06/13/17 [History] Pregabalin [Lyrica] 75 mg PO AD 06/13/17 [History] Sod Chloride/B-6/Zinc Acet/Ca [Wound Cleanser] 1 - 3 spray TP DAILY 06/13/17 [ History] 3 Allergy/AdvReac Type Severity Reaction Status Date / Time ciprofloxacin [From Cipro] AdvReac Unknown Verified 06/13/17 19:28 All Systems: A 10-system review of systems was performed and is negative for pertinent findings except as documented above in the HPI. Physical Examination Vital Signs: Vital Signs, Last 4 Hours Temp Pulse Resp BP Pulse Ox 06/15/17 12:08 98.4 F 06/15/17 11:00 81 32 150/90 99 06/15/17 10:00 77 30 150/65 98 06/15/17 09:00 81 30 147/88 98 06/15/17 08:28 98.0 F Results - Laboratory Findings CBC and BMP: 06/15/17 04:33 06/15/17 04:33 ABG ABG pH 7.36 pH Units (7.32-7.45) 06/14/17 15:15 ABG pCO2 33 mmHg (35-45) L 06/14/17 15:15 ABG pO2 69 mmHg (85-104) L 06/14/17 15:15 ABG O2 Saturation 93 % (95-98) L 06/14/17 15:15 PT/INR, D-dimer PT 24.0 Seconds (9.4-12.1) H 06/15/17 07:55 Abnormal lab findings: Abnormal lab results RBC 2.58 M/mcL (4.19-5.50) L 06/15/17 04:33 Hgb 8.3 g/dL (12.9-16.9) L 06/15/17 04:33 Hct 24.4 % (37.5-50.1) L 06/15/17 04:33 RDW 16.1 % (11.5-14.5) H 06/15/17 04:33 Plt Count 32 K/mcL (140-400) L 06/15/17 04:33 Nucleated RBCs/100 WBC 0.5 /100 WBC (0) H 06/14/17 07:59 Platelet Estimate Marked Decrease (Normal) L 06/15/17 04:33 Immature Plt Fraction 20.9 % (1.1-6.1) H 06/14/17 07:59 PT 24.0 Seconds (9.4-12.1) H 06/15/17 07:55 ABG pCO2 33 mmHg (35-45) L 06/14/17 15:15 ABG pO2 69 mmHg (85-104) L 06/14/17 15:15 ABG HCO3 18 mEq/L (21-27) L 06/14/17 15:15 ABG Total CO2 19 mEq/L (20-26) L 06/14/17 15:15 ABG O2 Saturation 93 % (95-98) L 06/14/17 15:15 ABG Base Excess -6 mEq/L (-2 to 3) L 06/14/17 15:15 BUN 66 mg/dL (8-26) H 06/15/17 04:33 Creatinine 2.04 mg/dL (0.72-1.25) H 06/15/17 04:33 Est GFR ( Amer) 38 (> 60) L 06/15/17 04:33 Est GFR (Non-Af Amer) 31 (> 60) L 06/15/17 04:33 BUN/Creatinine Ratio 32 (6-26) H 06/15/17 04:33 Glucose 140 mg/dL (70-99) H 06/15/17 04:33 POC Glucose 184 (58-89) H 06/15/17 11:36 Calculated Osmolality 315 (280-300) H 06/15/17 04:33 Iron 221 mcg/dL (65-175) H 06/14/17 18:15 % Saturation 89 % (20-55) H 06/14/17 18:15 Total Bilirubin 1.8 mg/dL (0.2-1.2) H 06/14/17 05:10 AST 440 Units/L (5-34) H 06/14/17 05:10 ALT 523 Units/L (0-55) H 06/14/17 05:10 Lactate Dehydrogenase 2224 Units/L (159-327) H 06/15/17 04:33 Troponin I 1.46 ng/mL (0-0.03) H* 06/14/17 05:10 Serum Total Protein 5.9 g/dL (6.0-8.3) L 06/14/17 05:10 Albumin 2.8 g/dL (3.5-5.0) L 06/14/17 05:10 Albumin/Globulin Ratio 0.9 (1.1-2.2) L 06/14/17 05:10 Vitamin B12 1403 pg/mL (213-816) H 06/14/17 18:15 - Clinical Findings Intake & Output: Intake & Output 06/14/17 06/15/17 06/15/17 23:59 07:59 15:59 Intake Total 301 / 301 Output Total 980 / 980 900 / 900 1375 / 1375 Balance -679 / -679 -900 / -900 -1375 / -1375 Weight 122.4 kg Consult Discharge Plan - Plan Referrals: Khadijah Carrasco MD [Family Provider] - [place],PCP [Primary Care Provider] - - Attending Attestation I examined this patient and my medical decision-making was reviewed with the Resident Physician. I agree with the documented findings, disposition and treatment plan as described except to the extent set forth below. Patient seen and examined. Labs, radiology, chart personally reviewed. Agree with resident's history and physical, assessment, plan with following comments: [employer]: Patient does not follows commands, this could be multifactorial from side effects of medication such as Ativan which needs to be stopped and use Haldol if needed Pulmonary: Acceptable oxygenation and ventilation. There is a possibility patient has volume overload blood transfusion and diuresis. Because of the mental status abnormality noninvasive ventilation is not the best option patient is DNI. Cardiovascular: Diuresis and when more stable he will need his cardiac medications. GI: Nutrition per dietary and GI prophylaxis per routine. Patient needs to be nothing by mouth for now. Heme: DVT prophylaxis per routine ID: No obvious source of infection Renal; urine out put and renal funtion reviewed Endorcine: blood glucose is monitored. Resume Synthroid suspect hyperthyroidism Lines: all lines checked and no evidence of infections Skin: skin care to prevent pressure ulcers per nursing routine care Overall prognosis extremely poor and supportive care is appropriate <SantoDrea - Last Filed: 06/15/17 17:30> Date of Encounter: 06/15/17 Time of Encounter: 09:45 Assessment and Plan (1) Respiratory failure with hypoxia Current Visit: Yes Status: Acute - With occasional desaturation noted. - Likely multifactorial including fluid overload from transfusion and decreased mentation related to medication use. - Given patient's mental status, non-invasive ventilation is not a good option. Patient is DNR-CCA-DNI. - Continue diuresis and supplemental oxygen. Qualifiers: Chronicity: unspecified Qualified Code(s): J96.91 - Respiratory failure, unspecified with hypoxia (2) Confusion and disorientation Current Visit: Yes Status: Acute - Likely multifactorial including medications, psychiatric history, hypothyroidism. - Will avoid benzodizapem use. Okay to use Haldol 1 mg prn agitation. - Continue to monitor. (3) Acute blood loss anemia Current Visit: Yes Status: Resolved - Hgb 5.0 on admission. - Likely related anticoagulation use and thrombocytopenia. - Status post 1 unit of platelets and 4 units of pRBC. - Hgb remains stable at 8.3 today. - Continue to hold anticoagulation. (4) Thrombocytopenia Current Visit: Yes Status: Acute - Platelet count 30 on admission. - Status post one unit of platelet transfusion. - Platelet count 32 today. - Hematology recommended platelets transfusion if <30k and if patient continues to have active bleeding. (5) Hypothyroidism Current Visit: Yes Status: Chronic - History of hypothyroidism and on Synthroid 125 mg PO daily at home. - TSH 3.967 today. - Continue home dose Synthroid Qualifiers: Hypothyroidism type: acquired Qualified Code(s): E03.9 - Hypothyroidism, unspecified (6) Elevated troponin Current Visit: Yes Status: Acute - Elevated troponin at 1.10 initially and then peaked at 1.46. - Cardiology thinks it's due to demand ischemia and recommended echo to check for new wall motion abnormalities. (7) Coronary artery disease Current Visit: Yes Status: Chronic - with 4-V CABG in the past. Qualifiers: Coronary Disease-Associated Artery/Lesion type: [place] artery [place] vs. transplanted heart: [place] heart Associated angina: without angina Qualified Code(s): I25.10 - Atherosclerotic heart disease of [place] coronary artery without angina pectoris (8) Diabetes mellitus Current Visit: Yes Status: Acute - Insulin sliding scale with frequent glucose monitoring. Qualifiers: Diabetes mellitus type: type 2 Diabetes mellitus complication status: with unspecified complications Diabetes mellitus rn long term care insulin use: without mcfp use Qualified Code(s): E11.8 - Type 2 diabetes mellitus with unspecified complications (9) DVT prophylaxis Current Visit: Yes Status: Acute - Calf pump as mechanical DVT prophylaxis. History of Present Illness Consult date: 06/15/17 Requesting physician: Socorro Romero Reason for consult: dyspnea Chief complaint: Dyspnea History of present illness: Mr. Lynn is a 82 yo male with PMH of A-fib on Eliquis, CHF, CAD, GERD, HTN, DM and CKD who presented with generalized weakness and rectal bleeding. Patient was noted to have Hgb 5.0, Plt 30, and troponin 1.10 in ED. Patient was admitted on 06/13/17 for acute blood loss anemia. Patient received 1 unit of platelets and 4 units of pRBC and Hgb remained stable at 8.3 today. Critical care/pulmonary is consulted today regarding patient's respiratory status and management. Patient was seen and examined this morning. Patient keeps his eyes closed and not answering questions nor following commands. No family member at bedside. Therefore much of history was obtained from reviewing medical records. Past Med Surg Social Fam HX - Past Medical History Medical history: atrial fibrillation, CHF, coronary artery disease, diabetes, GERD, hyperlipidemia, hypertension, renal disease, thyroid disease, other Psychiatric history: anxiety, depression - Past Surgical History Surgical History: appendectomy, coronary bypass (CABG), pacemaker/AICD, other - Social History Smoking Status: Former smoker Smokeless Tobacco Status: Yes Alcohol use: none Drug use: none - Family History Father Living Status: Age at : 87 Hx Family Neurologic Disorders: Yes (CVA) Mother Living Status: Age at : 98 Hx Family Cancer: Yes ROS unobtainable: due to mental status Physical Examination Vital Signs: Vital Signs, Last 4 Hours Temp Pulse 06/15/17 08:28 98.0 F 06/15/17 08:00 82 General appearance: lethargic ENT: oropharynx dry Neck: supple Effort: normal Inspection: normal Auscultation: bilateral: diminished breath sounds Cardiovascular: regular rate and rhythm Gastrointestinal: normoactive bowel sounds, soft Integumentary: normal Extremities: no cyanosis, no edema Results - Laboratory Findings CBC and BMP: 06/15/17 04:33 06/15/17 04:33 ABG ABG pH 7.36 pH Units (7.32-7.45) 06/14/17 15:15 ABG pCO2 33 mmHg (35-45) L 06/14/17 15:15 ABG pO2 69 mmHg (85-104) L 06/14/17 15:15 ABG O2 Saturation 93 % (95-98) L 06/14/17 15:15 PT/INR, D-dimer PT 24.0 Seconds (9.4-12.1) H 06/15/17 07:55 Abnormal lab findings: Abnormal lab results RBC 2.58 M/mcL (4.19-5.50) L 06/15/17 04:33 Hgb 8.3 g/dL (12.9-16.9) L 06/15/17 04:33 Hct 24.4 % (37.5-50.1) L 06/15/17 04:33 RDW 16.1 % (11.5-14.5) H 06/15/17 04:33 Plt Count 32 K/mcL (140-400) L 06/15/17 04:33 Nucleated RBCs/100 WBC 0.5 /100 WBC (0) H 06/14/17 07:59 Platelet Estimate Marked Decrease (Normal) L 06/15/17 04:33 Immature Plt Fraction 20.9 % (1.1-6.1) H 06/14/17 07:59 PT 24.0 Seconds (9.4-12.1) H 06/15/17 07:55 ABG pCO2 33 mmHg (35-45) L 06/14/17 15:15 ABG pO2 69 mmHg (85-104) L 06/14/17 15:15 ABG HCO3 18 mEq/L (21-27) L 06/14/17 15:15 ABG Total CO2 19 mEq/L (20-26) L 06/14/17 15:15 ABG O2 Saturation 93 % (95-98) L 06/14/17 15:15 ABG Base Excess -6 mEq/L (-2 to 3) L 06/14/17 15:15 Potassium 5.7 mEq/L (3.5-4.5) H 06/14/17 05:10 Carbon Dioxide 13 mEq/L (19-29) L 06/14/17 05:10 BUN 64 mg/dL (8-26) H 06/14/17 05:10 Creatinine 2.38 mg/dL (0.72-1.25) H 06/14/17 05:10 Est GFR ( Amer) 32 (> 60) L 06/14/17 05:10 Est GFR (Non-Af Amer) 26 (> 60) L 06/14/17 05:10 BUN/Creatinine Ratio 27 (6-26) H 06/14/17 05:10 Glucose 129 mg/dL (70-99) H 06/14/17 05:10 POC Glucose 147 (58-89) H 06/15/17 05:51 Calculated Osmolality 308 (280-300) H 06/14/17 05:10 Calcium 8.3 mg/dL (8.6-10.8) L 06/14/17 05:10 Iron 221 mcg/dL (65-175) H 06/14/17 18:15 % Saturation 89 % (20-55) H 06/14/17 18:15 Total Bilirubin 1.8 mg/dL (0.2-1.2) H 06/14/17 05:10 AST 440 Units/L (5-34) H 06/14/17 05:10 ALT 523 Units/L (0-55) H 06/14/17 05:10 Troponin I 1.46 ng/mL (0-0.03) H* 06/14/17 05:10 Serum Total Protein 5.9 g/dL (6.0-8.3) L 06/14/17 05:10 Albumin 2.8 g/dL (3.5-5.0) L 06/14/17 05:10 Albumin/Globulin Ratio 0.9 (1.1-2.2) L 06/14/17 05:10 Vitamin B12 1403 pg/mL (213-816) H 06/14/17 18:15 - Diagnostic Findings Chest x-ray: report reviewed, image reviewed - Clinical Findings Intake & Output: Intake & Output 06/14/17 06/15/17 06/15/17 23:59 07:59 15:59 Intake Total 301 / 301 Output Total 980 / 980 900 / 900 425 / 425 Balance -679 / -679 -900 / -900 -425 / -425 Weight 122.4 kg
[2017-06-15 10:04] LABS: Calcium 8.6 mg/dL (8.6-10.8)
[2017-06-15 10:17] LABS: Potassium 4.4 mEq/L (3.5-4.5)
[2017-06-15 10:53] LABS: Thyroid Stimulating Hormone 3.967 mcIU/mL (0.350-4.840)
[2017-06-15] MEDS: ZINC ACET TP SCH (10:54)
[2017-06-15] MEDS: SOD CHLORIDE TP SCH (10:54)
[2017-06-15] MEDS: [UNRECOGNIZED DRUG - OTHER] TP SCH (10:54)
[2017-06-15] MEDS: B6 TP SCH (10:54)
[2017-06-15] MEDS: Lactulose Oral Soln 20 GM/30 ML UDC PO SCH ×2 (10:55→21:48)
[2017-06-15] MEDS ORDERED: *HR* FentaNYL (PF) 100 MCG/2 ML VIAL IVP ONE (11:09)
[2017-06-15] MEDS ORDERED: *HR* FentaNYL (PF) 100 MCG/2 ML VIAL ONE (11:14)
--- NOTE | 2017-06-15 11:23 | Internal Med Progress Note ---
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 She recommended CT scan abdomen and pelvis, discussed with rivet machine operator for possible hepatorenal syndrome, discussed with critical care team based on patient wishes and family wishes of do not resuscitate no intubation, very poor prognosis, family understand, continue diuretics as needed. With patient being very confused currently critical care team recommended Tylenol patient wishes to hold on BiPAP and intubation, critical care team will follow-up with sedation. Case signed off the critical care team, please call us as needed, discussed was pulmonary. Replace electrolyte, add albumin to help with intravascular depletion and diuresis Greater than 35 minutes - Subjective Interval history: Patient is so sleepy drowsy, his oxygen saturation was down, patient refused BiPAP, pulmonary team discussed with family about intubation is on patient wishes no intubation, some improvement of his respiratory distress after diuretics, was given pain medication for comfort based on critical team recommendation - Constitutional Vitals: Temp Pulse Resp BP Pulse Ox 98.0 F 81 32 150/90 99 06/15/17 08:28 06/15/17 11:00 06/15/17 11:00 06/15/17 11:00 06/15/17 11:00 General appearance: Present: mild distress, morbidly obese - Head Head exam: Present: atraumatic, normocephalic - Neck Neck exam general surgery: Present: supple, trachea midline. Absent: lymphadenopathy - Respiratory Respiratory exam: Present: accessory muscle use, decreased breath sounds, prolonged expiratory phase, rales. Absent: rhonchi, wheezes - Cardiovascular Cardiovascular exam: Present: diastolic murmur, RRR, +S1, +S2. Absent: gallop, rubs, systolic murmur - GI/Abdominal GI/Abdominal exam: Present: diminished bowel sounds, distended, normal bowel sounds, soft, no peritoneal signs. Absent: guarding, tenderness - Extremities Exam Extremities exam: Present: pedal edema, warm. Absent: calf tenderness, cyanotic Internal Medicine: Result - Labs CBC & Chem 7: 06/15/17 04:33 06/15/17 04:33 Labs: Short CBC 06/14/17 06/15/17 Range/Units 18:15 04:33 WBC 6.8 (4.3-11.1) K/mcL Hgb 8.0 L 8.3 L (12.9-16.9) g/dL Hct 23.5 L 24.4 L (37.5-50.1) % Plt Count 32 L (140-400) K/mcL Neutrophils # 5.0 (1.6-8.9) K/mcL BMP 06/15/17 04:33 Sodium 142 Potassium 4.4 D Chloride 109 Carbon Dioxide 23 BUN 66 H Creatinine 2.04 H Glucose 140 H Calcium 8.6 - ABG Interpretation ABG results: ABG ABG pH 7.36 pH Units (7.32-7.45) 06/14/17 15:15 ABG pCO2 33 mmHg (35-45) L 06/14/17 15:15 ABG pO2 69 mmHg (85-104) L 06/14/17 15:15 ABG O2 Saturation 93 % (95-98) L 06/14/17 15:15 PT/INR, D-dimer PT 24.0 Seconds (9.4-12.1) H 06/15/17 07:55 - Impressions Impressions Chest X-Ray 06/14/17 14:39 IMPRESSION: Stable cardiomegaly and pulmonary venous hypertension. D/ / 06/14/2017 15:18:53 Joe Guzmán MD / María Granados Interpreting Provider: Joe Guzmán MD - VTE Documentation of Mechanical Device: Venous foot pump, device Consult Discharge Plan - Plan Referrals: Khadijah Carrasco MD [Family Provider] - [facility] [Primary Care Provider] -
--- NOTE | 2017-06-15 12:59 | Cardiology Progress Note ---
Date of Encounter: 06/15/17 Time of Encounter: 12:40 Assessment and Plan (1) Elevated troponin Current Visit: Yes Status: Acute Note minimal troponin elevation, due to demand ischemia, echo pending to eval for new wall motion abnormalites. (2) Coronary artery disease Current Visit: Yes Status: Chronic PT has known severe triple vessel disease, await results of echo, continue current meds. Qualifiers: Coronary Disease-Associated Artery/Lesion type: [place] artery [place] vs. transplanted heart: [place] heart Associated angina: without angina Qualified Code(s): I25.10 - Atherosclerotic heart disease of [place] coronary artery without angina pectoris (3) CHF (congestive heart failure) Current Visit: Yes Status: Acute Appears more euvolemic today following gentle rehydration, continue current meds. Qualifiers: Congestive heart failure type: unspecified congestive heart failure type Congestive heart failure chronicity: chronic Qualified Code(s): I50.9 - Heart failure, unspecified (4) Confusion and disorientation Current Visit: Yes Status: Acute No change, mildly confused. Discussion w patient/family: The assessment and plan as outlined above was discussed with the patient and/or family members who expressed understanding and agreement. All questions were answered. Thank you for involving us in the care of your patient. Please call with any questions. Subjective Principal diagnosis: A fib with RVR Interval history: PT sleepy but arousable, orientated to person only, wants out of bed, still confused. Objective Vital Signs, Last 4 Hours Temp Pulse Resp BP Pulse Ox 06/15/17 12:08 98.4 F 06/15/17 11:00 81 32 150/90 99 06/15/17 10:00 77 30 150/65 98 06/15/17 09:00 81 30 147/88 98 General: No Apparent Distress, Other (confused. ) HEENT: Atraumatic, Normocephaly, Mucus Membranes Moist Neck: No JVD Cardiac: Reg Rate and Rhythm, Normal S1 and S2, Other (frequent ectopics per auscultatioh=) Lungs: Other (scattered rhochi both bases, poor inpirator effort. ) Neuro: No focal deficits noted Abdomen: Soft, Other (Mildly disteded, bowel sounds hypoactive. ) Musculoskeletal: No Chest Wall Tenderness Extremities: No Clubbing, No Cyanosis, No Edema (left great toe in surgical dressing. ), Normal Pulses Results 06/15/17 04:33 06/15/17 04:33 Lab Results 06/14/17 06/14/17 06/15/17 18:15 18:15 04:33 WBC 6.8 Hgb 8.0 L 8.3 L Hct 23.5 L 24.4 L Plt Count 32 L INR 2.2 Sodium Potassium Chloride Carbon Dioxide BUN Creatinine Glucose Calcium Magnesium TSH 06/15/17 06/15/17 04:33 07:55 WBC Hgb Hct Plt Count INR 2.2 Sodium 142 Potassium 4.4 D Chloride 109 Carbon Dioxide 23 BUN 66 H Creatinine 2.04 H Glucose 140 H Calcium 8.6 Magnesium 2.0 TSH 3.967 - VTE Documentation of Mechanical Device: Venous foot pump, device Consult Discharge Plan - Plan Referrals: Khadijah Carrasco MD [Family Provider] - [facility] [Primary Care Provider] -
[2017-06-15] MEDS: Albumin 25% 25gram/100mL 25 GM/100 ML IV.SOLN IVPB SCH ×2 (17:35→23:42)
--- NOTE | 2017-06-15 19:03 | General Surgery Consult Note ---
Date of Encounter: 06/15/17 Time of Encounter: 09:00 Assessment and Plan (1) Lower GI bleeding Current Visit: Yes Status: Acute NPO - IVF - trend h/h - hold anticoagulation - transfuse per ICU protocol - once more lucid, or after talking with POA, will discuss concerning EGD and C- scope - no acute surgery at present History of Present Illness Consult date: 06/15/17 Reason for consult: other (LGIB) History of present illness: 51M h/o afib on eliquis, hypothyroidism, HLD, hemorrhoids who presents with LGIB. All history obtained from . The patient reportedly has had multiple episodes of falling 2/2 weakness, especially in his legs. No reports of chest pain nor shortness of breath. ~ 1-2 days prior to admission the patient had a large amount of blood in his stool. He was subsequently brought to the ED for further evaluation. Past Med Surg Social Fam HX - Past Medical History Medical history: atrial fibrillation, CHF, coronary artery disease, diabetes, GERD, hyperlipidemia, hypertension, renal disease, thyroid disease, other Psychiatric history: anxiety, depression - Past Surgical History Surgical History: appendectomy, coronary bypass (CABG), pacemaker/AICD, other - Social History Smoking Status: Former smoker Smokeless Tobacco Status: Yes Alcohol use: none Drug use: none - Family History Father Living Status: Age at : 87 Hx Family Neurologic Disorders: Yes (CVA) Mother Living Status: Age at : 98 Hx Family Cancer: Yes Medications and Allergies Apixaban [Eliquis] 2.5 mg PO BID 06/13/17 [History] Aspirin 81 mg PO DAILY 06/13/17 [History] Atorvastatin Calcium [Lipitor] 20 mg PO HS 06/13/17 [History] Carvedilol 3.125 mg PO BID 06/13/17 [History] Cholecalciferol (D-3) [Vitamin D] 2,000 unit PO DAILY 06/13/17 [History] Collagenase Oint [Santyl] 1 appl TP DAILY 06/13/17 [History] Furosemide [Lasix] 30 mg PO BID 06/13/17 [History] Levothyroxine [Synthroid] 125 mcg PO 0630 06/13/17 [History] Lidocaine Patch [Lidoderm 5% patch] 1 each TP DAILY 06/13/17 [History] Naloxone HCl [Narcan] 4 mg NS AD PRN 06/13/17 [History] Polyethylene Glycol 3350 [MiraLAX] 17 gm PO DAILY PRN 06/13/17 [History] Pregabalin [Lyrica] 75 mg PO AD 06/13/17 [History] Sod Chloride/B-6/Zinc Acet/Ca [Wound Cleanser] 1 - 3 spray TP DAILY 06/13/17 [ History] 3 Allergy/AdvReac Type Severity Reaction Status Date / Time ciprofloxacin [From Cipro] AdvReac Unknown Verified 06/13/17 19:28 Review of Systems All systems PM: A 10-system review of systems was performed and is negative for pertinent findings except as documented above in the HPI. General Surgery Exam Initial Vital Signs Temp Pulse Resp BP Pulse Ox 97.6 F 80 20 111/52 99 06/13/17 16:17 06/13/17 16:17 06/13/17 16:17 06/13/17 16:17 06/13/17 16:17 - General physical appearance well developed - Eyes other (no scleral icterus; pink conjunctiva) - Neck no lymphadectomy - Respiratory normal expansion, normal respiratory effort - Cardiovascular Cardiovascular exam: Present: RRR - Abdomen Abdomen general surgery: Present: soft (non distended), tympanic - Genitourinary Present: normal penis with no external lesions - Rectum Rectum: Present: normal sphincter tone, no hemorrhoids, no tenderness, no bleeding - Integumentary Integumentary general surgery: Present: warm and dry - Neurologic Present: other (GCS 11 (E:3, V: 3; M:5)) - Psychiatric Psychiatric general surgery: Present: other (not completely responsive) Exam Initial Vital Signs Temp Pulse Resp BP Pulse Ox 97.6 F 80 20 111/52 99 06/13/17 16:17 06/13/17 16:17 06/13/17 16:17 06/13/17 16:17 06/13/17 16:17 Results - Labs 06/15/17 04:33 06/15/17 04:33 Abnormal lab results RBC 2.58 M/mcL (4.19-5.50) L 06/15/17 04:33 Hgb 8.3 g/dL (12.9-16.9) L 06/15/17 04:33 Hct 24.4 % (37.5-50.1) L 06/15/17 04:33 RDW 16.1 % (11.5-14.5) H 06/15/17 04:33 Plt Count 32 K/mcL (140-400) L 06/15/17 04:33 Nucleated RBCs/100 WBC 0.5 /100 WBC (0) H 06/14/17 07:59 Platelet Estimate Marked Decrease (Normal) L 06/15/17 04:33 Immature Plt Fraction 20.9 % (1.1-6.1) H 06/14/17 07:59 PT 24.0 Seconds (9.4-12.1) H 06/15/17 07:55 ABG pCO2 33 mmHg (35-45) L 06/14/17 15:15 ABG pO2 69 mmHg (85-104) L 06/14/17 15:15 ABG HCO3 18 mEq/L (21-27) L 06/14/17 15:15 ABG Total CO2 19 mEq/L (20-26) L 06/14/17 15:15 ABG O2 Saturation 93 % (95-98) L 06/14/17 15:15 ABG Base Excess -6 mEq/L (-2 to 3) L 06/14/17 15:15 BUN 66 mg/dL (8-26) H 06/15/17 04:33 Creatinine 2.04 mg/dL (0.72-1.25) H 06/15/17 04:33 Est GFR ( Amer) 38 (> 60) L 06/15/17 04:33 Est GFR (Non-Af Amer) 31 (> 60) L 06/15/17 04:33 BUN/Creatinine Ratio 32 (6-26) H 06/15/17 04:33 Glucose 140 mg/dL (70-99) H 06/15/17 04:33 POC Glucose 206 (58-89) H 06/15/17 17:02 Calculated Osmolality 315 (280-300) H 06/15/17 04:33 Iron 221 mcg/dL (65-175) H 06/14/17 18:15 % Saturation 89 % (20-55) H 06/14/17 18:15 Total Bilirubin 1.8 mg/dL (0.2-1.2) H 06/14/17 05:10 AST 440 Units/L (5-34) H 06/14/17 05:10 ALT 523 Units/L (0-55) H 06/14/17 05:10 Lactate Dehydrogenase 2224 Units/L (159-327) H 06/15/17 04:33 Troponin I 1.46 ng/mL (0-0.03) H* 06/14/17 05:10 Serum Total Protein 5.9 g/dL (6.0-8.3) L 06/14/17 05:10 Albumin 2.8 g/dL (3.5-5.0) L 06/14/17 05:10 Albumin/Globulin Ratio 0.9 (1.1-2.2) L 06/14/17 05:10 Vitamin B12 1403 pg/mL (213-816) H 06/14/17 18:15 Diabetes panel 06/15/17 Range/Units 04:33 Sodium 142 (136-145) mEq/L Potassium 4.4 D (3.5-4.5) mEq/L Chloride 109 (98-109) mEq/L Carbon Dioxide 23 (19-29) mEq/L BUN 66 H (8-26) mg/dL Creatinine 2.04 H (0.72-1.25) mg/dL Glucose 140 H (70-99) mg/dL Calcium 8.6 (8.6-10.8) mg/dL Thyroid panel 06/15/17 Range/Units 04:33 TSH 3.967 (0.350-4.840) mcIU/mL Calcium panel 06/15/17 Range/Units 04:33 Calcium 8.6 (8.6-10.8) mg/dL Phosphorus 3.6 (2.3-4.7) mg/dL Pituitary panel 06/15/17 Range/Units 04:33 Sodium 142 (136-145) mEq/L Potassium 4.4 D (3.5-4.5) mEq/L Chloride 109 (98-109) mEq/L Carbon Dioxide 23 (19-29) mEq/L BUN 66 H (8-26) mg/dL Creatinine 2.04 H (0.72-1.25) mg/dL Glucose 140 H (70-99) mg/dL Calcium 8.6 (8.6-10.8) mg/dL TSH 3.967 (0.350-4.840) mcIU/mL Adrenal panel 06/15/17 Range/Units 04:33 Sodium 142 (136-145) mEq/L Potassium 4.4 D (3.5-4.5) mEq/L Chloride 109 (98-109) mEq/L Carbon Dioxide 23 (19-29) mEq/L BUN 66 H (8-26) mg/dL Creatinine 2.04 H (0.72-1.25) mg/dL Glucose 140 H (70-99) mg/dL Calcium 8.6 (8.6-10.8) mg/dL All other labs normal. Consult Discharge Plan - Plan Referrals: Khadijah Carrasco MD [Family Provider] - [place],PCP [Primary Care Provider] -
[2017-06-15] MEDS: Haloperidol Lactate 5 MG/ML VIAL IVP PRN (23:47)
[2017-06-16] MEDS: Pantoprazole 80 MG in 0.9 % Sodium Chloride 250 ML IVC SCH (03:38)
[2017-06-16] MEDS: Insulin LISPRO 300 UNITS/3 ML VIAL SQ SCH ×3 (05:48→18:13)
[2017-06-16 05:59] LABS: Basophils % 0.2 %; Eosinophils # 0.1 K/mcL (0.0-0.6); Eosinophils % 2.3 %; Hematocrit 21.1 % (37.5-50.1); Hemoglobin 7.1 g/dL (12.9-16.9); Immature Granulocytes % 0.9 % (0-4); Immature Platelets 21.7 % (1.1-6.1); Lymphocytes # 0.6 K/mcL (0.6-4.6); Lymphocytes % 14.6 %; Mean Corpuscular HGB Conc 33.6 g/dL (31.6-35.5); Mean Corpuscular Hemoglobin 32.4 pg (28.0-33.3); Mean Corpuscular Volume 96.3 fL (83.0-100.0); Mean Platelet Volume 13.6 fL (9.4-12.4); Monocytes # 0.6 K/mcL (0.0-1.3); Monocytes % 14.8 %; Neutrophils # 2.9 K/mcL (1.6-8.9); Red Blood Count 2.19 M/mcL (4.19-5.50); Red Cell Distribution Width 15.8 % (11.5-14.5); Segmented Neutrophils % 67.2 %
[2017-06-16 06:01] LABS: Prothrombin Time 21.3 Seconds (9.4-12.1)
[2017-06-16 06:03] LABS: Platelet Count 28 K/mcL (140-400)
[2017-06-16 06:09] LABS: Calcium 8.4 mg/dL (8.6-10.8); Potassium 4.4 mEq/L (3.5-4.5)
[2017-06-16] MEDS: Albumin 25% 25gram/100mL 25 GM/100 ML IV.SOLN IVPB SCH (09:15)
[2017-06-16] MEDS: B6 TP SCH (09:16)
[2017-06-16] MEDS: ZINC ACET TP SCH (09:16)
[2017-06-16] MEDS: Lactulose Oral Soln 20 GM/30 ML UDC PO SCH ×2 (09:16→19:45)
[2017-06-16] MEDS: Nystatin SUSP 5 ML UD.LIQ PO SCH ×4 (09:16→19:46)
[2017-06-16] MEDS: SOD CHLORIDE TP SCH (09:16)
[2017-06-16] MEDS: [UNRECOGNIZED DRUG - OTHER] TP SCH (09:16)
[2017-06-16] MEDS: RisperiDONE-M 1 MG TAB.RAPDIS PO SCH ×2 (09:17→09:53)
[2017-06-16] MEDS ORDERED: 0.9 % Sodium Chloride 250 ML ONE ×3 (09:28→18:35)
--- NOTE | 2017-06-16 09:52 | Pulmonology Progress Note ---
<CarlosAnat Nascimento - Last Filed: 06/16/17 17:56> Date of Encounter: 06/16/17 Time of Encounter: 09:50 Assessment and Plan (1) Acute blood loss anemia Current Visit: Yes Status: Resolved Hemoglobin 5.0 on admission. 6.7 today. Patient with 2 bowel movements consistent with melena. No hematochezia. -Likely related to her anticoagulation use and thrombocytopenia. -Patient needs GI evaluation with EGD and colonoscopy. Family agrees to reverse DNI if we proceed to those procedures. -Patient has received 1 unit of platelets today and 2 units of packed red blood cells. -Follow-up CBC, H&H, and continue to hold anticoagulation. -DC continuous IV Protonix. Switch to 40 mg IV twice a day. -Powerglide IV access for transfusions. (2) Thrombocytopenia Current Visit: Yes Status: Acute Platelet count 28 today.. -Received 1 unit of platelets today which totals 2 during this admission. -Continue to follow hematology recommendations to transfuse platelets if less than 30,000. (3) Respiratory failure with hypoxia Current Visit: Yes Status: Acute Patient with occasional desaturation noted. -Likely multifactorial including fluid overload from transfusion and decreased mentation related to medication use. -Given patient's mental status, noninvasive ventilation is not a good option. Patient is DNRCCADNI. -continue diuresis and supplemental oxygen. Qualifiers: Chronicity: unspecified Qualified Code(s): J96.91 - Respiratory failure, unspecified with hypoxia (4) Elevated troponin Current Visit: Yes Status: Acute -Elevated troponin at 1.1 initially. Elevations have been adynamic. -Cardiology thinks it is likely due to demand ischemia. -Echocardiogram on 06/16/2017 shows LVEF of 45%. Also there is mild dilation of the left ventricle with global left ventricular systolic dysfunction and ventricular hypertrophy. (5) Confusion and disorientation Current Visit: Yes Status: Acute -Hepatic encephalopathy versus medications. Patient's ammonia was 72 on admission. -Awaiting GI evaluation. -We will avoid benzodiazepine use. Give Haldol 1 mg when necessary agitation. -Continue to monitor. -Liver ultrasound views of liver are obstructed secondary to likely bowel gas. (6) Coronary artery disease Current Visit: Yes Status: Chronic Patient with past medical history four-vessel CABG in the past. Qualifiers: Coronary Disease-Associated Artery/Lesion type: [place] artery [place] vs. transplanted heart: [place] heart Associated angina: without angina Qualified Code(s): I25.10 - Atherosclerotic heart disease of [place] coronary artery without angina pectoris (7) Diabetes mellitus Current Visit: Yes Status: Acute Insulin sliding scale with frequent glucose monitoring. 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 -We will give IV Synthroid at 63 mg as patient is nothing by mouth for potential colonoscopy and EGD. Qualifiers: Hypothyroidism type: acquired Qualified Code(s): E03.9 - Hypothyroidism, unspecified (9) DVT prophylaxis Current Visit: Yes Status: Acute EPCDs Subjective Principal diagnosis: Acute Blood Loss Anemia Interval history: Patient continuing to be more awake and alert. Per family, patient is not at his baseline. He does continue to the altered and confused. He has had 2 tarry bowel movements consistent with melena. Per patient's family, is medically necessary to proceed with EGD and colonoscopy, they will allow the patient DNI status to be revoked during the procedure. Objective PUL Vital signs: Last Vital Signs Temp 99.8 F H 06/16/17 08:51 Pulse 81 06/16/17 09:00 Resp 22 06/16/17 09:00 BP 114/90 06/16/17 09:00 Pulse Ox 97 06/16/17 09:00 General appearance: agitated, other (Confused) Eyes: nonicteric, injected ENT: oropharynx dry Neck: supple Auscultation: bilateral: diminished breath sounds Cardiovascular: regular rate and rhythm Gastrointestinal: normoactive bowel sounds, soft, non-tender, other (tympanitic) Integumentary: normal, other (Patient with 1 cm healing ulcer on the lateral aspect of his left large toe.) Extremities: no cyanosis, no edema, no clubbing, pulses normal other (altered, agitated) Results - Laboratory Findings CBC and BMP: 06/16/17 11:48 06/16/17 05:48 ABG ABG pH 7.36 pH Units (7.32-7.45) 06/14/17 15:15 ABG pCO2 33 mmHg (35-45) L 06/14/17 15:15 ABG pO2 69 mmHg (85-104) L 06/14/17 15:15 ABG O2 Saturation 93 % (95-98) L 06/14/17 15:15 PT/INR, D-dimer PT 21.3 Seconds (9.4-12.1) H 06/16/17 05:48 Abnormal lab findings: Abnormal lab results RBC 2.19 M/mcL (4.19-5.50) L 06/16/17 05:48 Hgb 7.1 g/dL (12.9-16.9) L 06/16/17 05:48 Hct 21.1 % (37.5-50.1) L 06/16/17 05:48 RDW 15.8 % (11.5-14.5) H 06/16/17 05:48 Plt Count 28 K/mcL (140-400) L* 06/16/17 05:48 MPV 13.6 fL (9.4-12.4) H 06/16/17 05:48 Nucleated RBCs/100 WBC 0.5 /100 WBC (0) H 06/14/17 07:59 Platelet Estimate Marked Decrease (Normal) L 06/15/17 04:33 Immature Plt Fraction 21.7 % (1.1-6.1) H 06/16/17 05:48 PT 21.3 Seconds (9.4-12.1) H 06/16/17 05:48 ABG pCO2 33 mmHg (35-45) L 06/14/17 15:15 ABG pO2 69 mmHg (85-104) L 06/14/17 15:15 ABG HCO3 18 mEq/L (21-27) L 06/14/17 15:15 ABG Total CO2 19 mEq/L (20-26) L 06/14/17 15:15 ABG O2 Saturation 93 % (95-98) L 06/14/17 15:15 ABG Base Excess -6 mEq/L (-2 to 3) L 06/14/17 15:15 Sodium 149 mEq/L (136-145) H 06/16/17 05:48 Chloride 113 mEq/L (98-109) H 06/16/17 05:48 BUN 58 mg/dL (8-26) H 06/16/17 05:48 Creatinine 1.69 mg/dL (0.72-1.25) H 06/16/17 05:48 Est GFR ( Amer) 47 (> 60) L 06/16/17 05:48 Est GFR (Non-Af Amer) 39 (> 60) L 06/16/17 05:48 BUN/Creatinine Ratio 34 (6-26) H 06/16/17 05:48 Glucose 167 mg/dL (70-99) H 06/16/17 05:48 POC Glucose 178 (58-89) H 06/16/17 05:47 Calculated Osmolality 328 (280-300) H 06/16/17 05:48 Calcium 8.4 mg/dL (8.6-10.8) L 06/16/17 05:48 Iron 221 mcg/dL (65-175) H 06/14/17 18:15 % Saturation 89 % (20-55) H 06/14/17 18:15 Total Bilirubin 1.8 mg/dL (0.2-1.2) H 06/14/17 05:10 AST 440 Units/L (5-34) H 06/14/17 05:10 ALT 523 Units/L (0-55) H 06/14/17 05:10 Lactate Dehydrogenase 2224 Units/L (159-327) H 06/15/17 04:33 Troponin I 1.46 ng/mL (0-0.03) H* 06/14/17 05:10 Serum Total Protein 5.9 g/dL (6.0-8.3) L 06/14/17 05:10 Albumin 2.8 g/dL (3.5-5.0) L 06/14/17 05:10 Albumin/Globulin Ratio 0.9 (1.1-2.2) L 06/14/17 05:10 Vitamin B12 1403 pg/mL (213-816) H 06/14/17 18:15 - Clinical Findings Intake & Output: Intake & Output 06/15/17 06/16/17 06/16/17 23:59 07:59 15:59 Intake Total 100 / 100 350 / 350 Output Total 830 / 830 350 / 350 200 / 200 Balance -730 / -730 0 / 0 -200 / -200 - VTE Documentation of Mechanical Device: Venous foot pump, device Consult Discharge Plan - Plan Referrals: Khadijah Carrasco MD [Family Provider] - [place],PCP [Primary Care Provider] - <Omaira Stanford - Last Filed: 06/16/17 22:25> Date of Encounter: 06/16/17 Objective PUL Vital signs: Last Vital Signs Temp 98.3 F 06/16/17 14:36 Pulse 78 06/16/17 18:00 Resp 24 06/16/17 18:00 BP 103/84 06/16/17 18:00 Pulse Ox 99 06/16/17 18:00 Results - Laboratory Findings CBC and BMP: 06/16/17 11:48 06/16/17 05:48 ABG ABG pH 7.36 pH Units (7.32-7.45) 06/14/17 15:15 ABG pCO2 33 mmHg (35-45) L 06/14/17 15:15 ABG pO2 69 mmHg (85-104) L 06/14/17 15:15 ABG O2 Saturation 93 % (95-98) L 06/14/17 15:15 PT/INR, D-dimer PT 21.3 Seconds (9.4-12.1) H 06/16/17 05:48 Abnormal lab findings: Abnormal lab results RBC 2.19 M/mcL (4.19-5.50) L 06/16/17 05:48 Hgb 6.7 g/dL (12.9-16.9) L 06/16/17 11:48 Hct 20.3 % (37.5-50.1) L 06/16/17 11:48 RDW 15.8 % (11.5-14.5) H 06/16/17 05:48 Plt Count 28 K/mcL (140-400) L* 06/16/17 05:48 MPV 13.6 fL (9.4-12.4) H 06/16/17 05:48 Nucleated RBCs/100 WBC 0.5 /100 WBC (0) H 06/14/17 07:59 Platelet Estimate Marked Decrease (Normal) L 06/15/17 04:33 Immature Plt Fraction 21.7 % (1.1-6.1) H 06/16/17 05:48 PT 21.3 Seconds (9.4-12.1) H 06/16/17 05:48 ABG pCO2 33 mmHg (35-45) L 06/14/17 15:15 ABG pO2 69 mmHg (85-104) L 06/14/17 15:15 ABG HCO3 18 mEq/L (21-27) L 06/14/17 15:15 ABG Total CO2 19 mEq/L (20-26) L 06/14/17 15:15 ABG O2 Saturation 93 % (95-98) L 06/14/17 15:15 ABG Base Excess -6 mEq/L (-2 to 3) L 06/14/17 15:15 Sodium 149 mEq/L (136-145) H 06/16/17 05:48 Chloride 113 mEq/L (98-109) H 06/16/17 05:48 BUN 58 mg/dL (8-26) H 06/16/17 05:48 Creatinine 1.69 mg/dL (0.72-1.25) H 06/16/17 05:48 Est GFR ( Amer) 47 (> 60) L 06/16/17 05:48 Est GFR (Non-Af Amer) 39 (> 60) L 06/16/17 05:48 BUN/Creatinine Ratio 34 (6-26) H 06/16/17 05:48 Glucose 167 mg/dL (70-99) H 06/16/17 05:48 POC Glucose 226 (58-89) H 06/16/17 18:12 Calculated Osmolality 328 (280-300) H 06/16/17 05:48 Calcium 8.4 mg/dL (8.6-10.8) L 06/16/17 05:48 Iron 221 mcg/dL (65-175) H 06/14/17 18:15 % Saturation 89 % (20-55) H 06/14/17 18:15 Total Bilirubin 1.8 mg/dL (0.2-1.2) H 06/14/17 05:10 AST 440 Units/L (5-34) H 06/14/17 05:10 ALT 523 Units/L (0-55) H 06/14/17 05:10 Lactate Dehydrogenase 2224 Units/L (159-327) H 06/15/17 04:33 Troponin I 1.46 ng/mL (0-0.03) H* 06/14/17 05:10 Serum Total Protein 5.9 g/dL (6.0-8.3) L 06/14/17 05:10 Albumin 2.8 g/dL (3.5-5.0) L 06/14/17 05:10 Albumin/Globulin Ratio 0.9 (1.1-2.2) L 06/14/17 05:10 Vitamin B12 1403 pg/mL (213-816) H 06/14/17 18:15 - Clinical Findings Intake & Output: Intake & Output 06/16/17 06/16/17 06/16/17 07:59 15:59 23:59 Intake Total 350 / 350 300 / 300 300 / 300 Output Total 350 / 350 400 / 400 Balance 0 / 0 -100 / -100 300 / 300 - Attending Attestation I saw the patient with the resident agree with History and Physical exam findings. 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 following commands but has some episodic confusion NECK : No JVD appreciated Pulmonary : Patient is hypoxic respiratory failure on NC cannula secondary to Acute on Chronic Systolic heart failure , NSTEMI appreciate cardiology recs not a candidate for [facility] Cardiac : Atrial fibrillation rate controlled , Acute on Chronic systolic heart failure with latest ECHO shows EF of 40% in the setting of GI bleed will hold off diuresis for now Nutrition/GI: Patient is NPO , PPI IV BID family is Ok if needs to be intubated for procedures but in ideal situation wants patient to make the decision making . liver Ultrasound was done Renal : JARETH slowly improving will do volume resuscitation with platelets and PRBC Heme onc : Acute Blood loss anemia to keep Hb around 8 , To Keep Platelets above 30,000 . Appreciate Heme onc recs ID : No acute issues Disposition : High chance of vital organ decline secondary to GI bleed needs critical Care moniotoring Code status: DNRA DNI Family/POA: Family was updated 32 minutes of Critical Care time was spent in medical decision to prevent further vital organ decline .
[2017-06-16] MEDS ORDERED: Levothyroxine Sodium 100 MCG VIAL IVP SCH (09:56)
--- NOTE | 2017-06-16 10:44 | Electrocardiograph Report ---
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
--- NOTE | 2017-06-16 11:29 | Cardiology Progress Note ---
Date of Encounter: 06/16/17 Time of Encounter: 11:26 Assessment and Plan (1) Elevated troponin Current Visit: Yes Status: Acute Troponins 1.10, 1.10, 1.46 in setting of GI bleed and known CAD. Demand ischemic suspected vs. NSTEMI. Medical management only in setting of GI bleed and pt being significantly confused. EF on echo in 2013 EF was 50%. Current echo pending. Pt is not a candidate for any invasive cardiac work-up currently. Anticipate sign off once echo results. (2) A-fib Current Visit: Yes Status: Chronic Known hx of A-Fib. Currently not on AV elinor blockers but HR controlled--24 hr tele AVG HR 78. Previously anticoagulated on Eliquis, stopped in setting of GI bleed. Pending GI workup. Qualifiers: Atrial fibrillation type: unspecified Qualified Code(s): I48.91 - Unspecified atrial fibrillation (3) Coronary artery disease Current Visit: Yes Status: Chronic Hx of CABG. [facility] 2013 severe CAD, nothing amendable to PCI. EF previously 50%. Current echo pending. Currently NPO. No ASA due to GI bleed, no BB due to hypotension. Consider statin once tolerating PO. Qualifiers: Coronary Disease-Associated Artery/Lesion type: [place] artery [place] vs. transplanted heart: [place] heart Associated angina: without angina Qualified Code(s): I25.10 - Atherosclerotic heart disease of [place] coronary artery without angina pectoris Discussion w patient/family: The assessment and plan as outlined above was discussed with the patient and/or family members who expressed understanding and agreement. All questions were answered. Thank you for involving us in the care of your patient. Please call with any questions. I will discuss all the above with Dr. Mackenzie and make changes as necessary. Subjective Principal diagnosis: A fib with RVR Interval history: Pt confused. Denies cardiac complaints. Objective Vital Signs, Last 4 Hours Temp Pulse Resp BP Pulse Ox 06/16/17 10:00 89 24 91/80 100 06/16/17 09:00 81 22 114/90 97 06/16/17 08:51 99.8 F H 06/16/17 08:00 93 22 129/67 95 06/16/17 07:35 90 Vital Signs Temp Pulse Resp BP Pulse Ox 06/16/17 10:00 89 24 91/80 100 06/16/17 09:00 81 22 114/90 97 06/16/17 08:51 99.8 F H 06/16/17 08:00 93 22 129/67 95 06/16/17 07:35 90 06/16/17 07:00 90 24 136/94 97 06/16/17 06:00 81 20 137/81 96 06/16/17 05:00 93 16 141/56 100 06/16/17 04:54 97.8 F 06/16/17 04:00 83 16 132/47 100 06/16/17 03:00 89 16 134/56 100 06/16/17 02:00 87 20 136/45 98 06/16/17 01:00 91 20 123/84 98 06/16/17 00:00 98.7 F 96 28 110/64 98 06/15/17 23:00 94 28 107/42 99 06/15/17 22:00 95 20 142/79 98 06/15/17 21:00 88 20 124/94 98 06/15/17 20:44 99.1 F 06/15/17 20:00 90 26 141/73 99 06/15/17 19:00 86 22 139/69 99 06/15/17 18:30 85 27 147/67 98 06/15/17 17:00 92 29 147/82 99 06/15/17 16:00 84 28 137/63 100 06/15/17 15:44 98.7 F 06/15/17 15:00 80 28 147/75 100 06/15/17 14:00 75 28 146/76 100 06/15/17 13:00 88 29 154/82 100 06/15/17 12:08 98.4 F 06/15/17 12:00 78 29 146/94 100 Intake and Output 06/15/17 06/16/17 06/16/17 23:59 07:59 15:59 Intake Total 100 / 100 350 / 350 Output Total 830 / 830 350 / 350 200 / 200 Balance -730 / -730 0 / 0 -200 / -200 Intake: IV Fluids 100 / 100 350 / 350 Protonix 80 MG In 0.9 % Sodium 250 / 250 Chloride 250 ML @ 25 mls/hr IVC .Q10H [facility] Rx#:[id number] Flexbumin 25 gm In 100 ml @ 60 100 / 100 100 / 100 mls/hr IVPB Q8HR [facility] Rx#: [id number] Output: Catheter 830 / 830 350 / 350 200 / 200 Other: Stool Size Moderate Small Stool Consistency loose soft Stool Characteristics Tarry Stool Color Black Brown Black # Bowel Movements 1 1 Blood Glucose* 206 186 General: No Apparent Distress HEENT: Atraumatic, Normocephaly, Mucus Membranes Moist Neck: Normal carotid pulses Cardiac: Other (irregular) Lungs: Other (wheezes, rhonchi) Neuro: Other (confused) Abdomen: Soft, Non-Tender Skin: No rashes noted on visualized skin Musculoskeletal: No Chest Wall Tenderness Extremities: No Clubbing, No Cyanosis, No Edema, Normal Pulses Results 06/16/17 05:48 06/16/17 05:48 Lab Results 06/16/17 06/16/17 06/16/17 05:48 05:48 05:48 WBC 4.3 Hgb 7.1 L Hct 21.1 L Plt Count 28 L* INR 2.0 Sodium 149 H Potassium 4.4 Chloride 113 H Carbon Dioxide 28 BUN 58 H Creatinine 1.69 H Glucose 167 H Calcium 8.4 L Short CBC 06/16/17 Range/Units 05:48 WBC 4.3 (4.3-11.1) K/mcL Hgb 7.1 L (12.9-16.9) g/dL Hct 21.1 L (37.5-50.1) % Plt Count 28 L* (140-400) K/mcL Neutrophils # 2.9 (1.6-8.9) K/mcL BMP 06/16/17 Range/Units 05:48 Sodium 149 H (136-145) mEq/L Potassium 4.4 (3.5-4.5) mEq/L Chloride 113 H (98-109) mEq/L Carbon Dioxide 28 (19-29) mEq/L BUN 58 H (8-26) mg/dL Creatinine 1.69 H (0.72-1.25) mg/dL Glucose 167 H (70-99) mg/dL Calcium 8.4 L (8.6-10.8) mg/dL Active Medications Collagenase (Santyl) 1 appl TP DAILY [facility] PRN Reason: Protocol Stop: 12/14/17 09:01 Last Admin: 06/15/17 09:55 Dose: 1 appl Dextrose/Water (Dextrose 50% (Syg)) 25 ml IVP AD PRN PRN Reason: Hypoglycemia Stop: 12/14/17 15:57 Glucagon (Glucagen) 1 mg IM ONCE PRN PRN Reason: Hypoglycemia Stop: 12/14/17 15:57 Glucose (Gluctose) 15 gm PO ONCE PRN PRN Reason: Hypoglycemia Stop: 12/14/17 15:57 Glucose (Gluctose) 30 gm PO ONCE PRN PRN Reason: Hypoglycemia Stop: 12/14/17 15:57 Haloperidol Lactate (Haldol) 1 mg IVP Q6HR PRN PRN Reason: agitation Stop: 12/15/17 17:05 Last Admin: 06/15/17 23:47 Dose: 1 mg Hydralazine HCl (Hydralazine) 10 mg IVP Q6H PRN PRN Reason: SBP > 150 Stop: 12/15/17 11:00 Dextrose (Dextrose 5%) 1,000 mls @ 100 mls/hr IVC .Q10H PRN PRN Reason: HYPOGLYCEMIA Stop: 12/14/17 15:57 Dextrose (Dextrose 5%) 1,000 mls @ 100 mls/hr IVC .Q10H [facility] Stop: 06/17/17 07:31 Insulin Human Lispro (Humalog) 0 units SQ Q6HR [facility] PRN Reason: Protocol Stop: 12/14/17 18:01 Last Admin: 06/16/17 05:48 Dose: 2 units Lactulose (Lactulose) 10 gm PO BID [facility] Stop: 12/14/17 21:01 Last Admin: 06/16/17 09:16 Dose: Not Given Levothyroxine Sodium (Synthroid) 63 mcg IVP DAILY [facility] Stop: 12/16/17 10:01 Lidocaine HCl (Lidoderm 5% Patch) 1 each TP DAILY [facility] Stop: 12/14/17 09:01 Last Admin: 06/16/17 09:54 Dose: 1 each Naloxone HCl (Narcan) 0.4 mg IVP Q2MIN PRN PRN Reason: Opioid Reversal Stop: 12/13/17 22:55 Nystatin (Mycostatin Suspension) 5 ml PO QID [facility] Stop: 12/14/17 17:01 Last Admin: 06/16/17 09:16 Dose: 5 ml Ondansetron HCl (Zofran) 4 mg IVP Q8HR PRN PRN Reason: Nausea And Vomiting Stop: 12/13/17 22:55 Pantoprazole Sodium (Protonix) 40 mg IVP Q12HR [facility] Stop: 12/16/17 18:01 Risperidone (Risperdal M-Tab) 0.5 mg PO DAILY [facility] Stop: 12/14/17 15:31 Last Admin: 06/16/17 09:53 Dose: 0.5 mg - Imaging and Cardiology Echo: pending - EKG Interpretation EKG results cardiology: other (12 hr tele AVG HR 78, paced, underlying rhythm A- Fib) - VTE Documentation of Mechanical Device: Venous foot pump, device Consult Discharge Plan - Plan Referrals: Khadijah Carrasco MD [Family Provider] - [facility] [Primary Care Provider] -
[2017-06-16] MEDS ORDERED: Perflutren Lipid Microsphere 1.3 ML in 0.9 % Sodium Chloride 8.7 ML IVP ONE (12:10)
[2017-06-16 12:20] LABS: Hematocrit 20.3 % (37.5-50.1); Hemoglobin 6.7 g/dL (12.9-16.9)
[2017-06-16] MEDS: Levothyroxine Sodium 100 MCG VIAL IVP SCH (12:38)
[2017-06-16] MEDS: D5% in Water 1,000 ML IVC SCH ×2 (12:39→21:58)
--- NOTE | 2017-06-16 13:23 | General Surgery Progress Note ---
Date of Encounter: 06/16/17 Time of Encounter: 13:21 - Assessment and Plan (1) Lower GI bleeding Current Visit: Yes Status: Acute NPO - IVF - trend h/h - hold anticoagulation - transfuse per ICU protocol - will discuss with POA and/or patient about timing for EGD and C-scope - no acute surgery at present Subjective Patient reports: other (more lucid today; ) Objective Vital Signs - Last 8 Hours Temp Pulse Resp BP Pulse Ox 06/16/17 12:18 98.1 F 06/16/17 12:00 85 22 112/59 99 06/16/17 11:45 86 06/16/17 11:00 86 20 99/85 94 06/16/17 10:00 89 24 91/80 100 06/16/17 09:00 81 22 114/90 97 06/16/17 08:51 99.8 F H 06/16/17 08:00 93 22 129/67 95 06/16/17 07:35 90 06/16/17 07:00 90 24 136/94 97 06/16/17 06:00 81 20 137/81 96 Intake and Output 06/15/17 06/16/17 06/16/17 23:59 07:59 15:59 Intake Total 100 / 100 350 / 350 Output Total 830 / 830 350 / 350 400 / 400 Balance -730 / -730 0 / 0 -400 / -400 Intake: IV Fluids 100 / 100 350 / 350 Protonix 80 MG In 0.9 % Sodium 250 / 250 Chloride 250 ML @ 25 mls/hr IVC .Q10H [facility] Rx#:[id number] Flexbumin 25 gm In 100 ml @ 60 100 / 100 100 / 100 mls/hr IVPB Q8HR [facility] Rx#: [id number] Output: Catheter 830 / 830 350 / 350 400 / 400 Other: Stool Size Moderate Smear Stool Consistency loose soft Stool Characteristics Tarry Stool Color Black Black # Bowel Movements 1 1 Blood Glucose* 206 186 196 - General physical appearance well developed - Respiratory normal expansion, normal respiratory effort - Cardiovascular Cardiovascular exam: Present: RRR - Abdomen Abdomen: Present: soft, non tender - Rectum other (still with blood stools) - Neurologic CN 2-12 grossly intact - Labs 06/16/17 11:48 06/16/17 05:48 Diabetes panel 06/16/17 Range/Units 05:48 Sodium 149 H (136-145) mEq/L Potassium 4.4 (3.5-4.5) mEq/L Chloride 113 H (98-109) mEq/L Carbon Dioxide 28 (19-29) mEq/L BUN 58 H (8-26) mg/dL Creatinine 1.69 H (0.72-1.25) mg/dL Glucose 167 H (70-99) mg/dL Calcium 8.4 L (8.6-10.8) mg/dL Calcium panel 06/16/17 Range/Units 05:48 Calcium 8.4 L (8.6-10.8) mg/dL Pituitary panel 06/16/17 Range/Units 05:48 Sodium 149 H (136-145) mEq/L Potassium 4.4 (3.5-4.5) mEq/L Chloride 113 H (98-109) mEq/L Carbon Dioxide 28 (19-29) mEq/L BUN 58 H (8-26) mg/dL Creatinine 1.69 H (0.72-1.25) mg/dL Glucose 167 H (70-99) mg/dL Calcium 8.4 L (8.6-10.8) mg/dL Adrenal panel 06/16/17 Range/Units 05:48 Sodium 149 H (136-145) mEq/L Potassium 4.4 (3.5-4.5) mEq/L Chloride 113 H (98-109) mEq/L Carbon Dioxide 28 (19-29) mEq/L BUN 58 H (8-26) mg/dL Creatinine 1.69 H (0.72-1.25) mg/dL Glucose 167 H (70-99) mg/dL Calcium 8.4 L (8.6-10.8) mg/dL - VTE Documentation of Mechanical Device: Intermittent pneumatic compression device Consult Discharge Plan - Plan Referrals: Khadijah Carrasco MD [Family Provider] - [facility] [Primary Care Provider] -
--- NOTE | 2017-06-16 17:08 | Oncology Inp Progress Note ---
Date of Encounter: 06/16/17 Time of Encounter: 12:00 (1) Severe anemia Current Visit: Yes Status: Acute Assessment and plan: Cr anemia from prior labs, GI bleeding with Hgb of 5g, awaiting prior reports. He is s/p PRBC 4 and plt INR today at 2. US--coarse liver. Thrombocytopenia likely from liver disease? LFT abnormalities, elevated ammonia levels- GI bleed to be further evaluated with scope once stable. Transfuse platelets if <30k/ICU protocol and if he continues to have active bleeding. LDH markedly elevated, LFTs abnormal. Repaet smear to be reviewed. Consider transfusing FFP for coagulopathy (INR ~2)as Hgb continues to decline. Oncology: Subj Interval history: Pt appears confused, per ICU staff somewhat lucid. - Constitutional Vitals: Vital Signs Temp Pulse Resp BP Pulse Ox 06/16/17 15:15 85 06/16/17 15:00 85 22 106/86 100 06/16/17 14:00 77 24 135/78 97 06/16/17 13:00 84 24 111/80 99 06/16/17 12:18 98.1 F 06/16/17 12:00 85 22 112/59 99 06/16/17 11:45 86 06/16/17 11:00 86 20 99/85 94 06/16/17 10:00 89 24 91/80 100 06/16/17 09:00 81 22 114/90 97 06/16/17 08:51 99.8 F H 06/16/17 08:00 93 22 129/67 95 06/16/17 07:35 90 06/16/17 07:00 90 24 136/94 97 06/16/17 06:00 81 20 137/81 96 06/16/17 05:00 93 16 141/56 100 06/16/17 04:54 97.8 F 06/16/17 04:00 83 16 132/47 100 06/16/17 03:00 89 16 134/56 100 06/16/17 02:00 87 20 136/45 98 06/16/17 01:00 91 20 123/84 98 06/16/17 00:00 98.7 F 96 28 110/64 98 06/15/17 23:00 94 28 107/42 99 06/15/17 22:00 95 20 142/79 98 06/15/17 21:00 88 20 124/94 98 06/15/17 20:44 99.1 F 06/15/17 20:00 90 26 141/73 99 06/15/17 19:00 86 22 139/69 99 06/15/17 18:30 85 27 147/67 98 Intake and Output 06/16/17 06/16/17 06/16/17 07:59 15:59 23:59 Intake Total 350 / 350 300 / 300 Output Total 350 / 350 400 / 400 Balance 0 / 0 -100 / -100 Intake: IV Fluids 350 / 350 Protonix 80 MG In 0.9 % Sodium 250 / 250 Chloride 250 ML @ 25 mls/hr IVC .Q10H [facility] Rx#:[id number] Flexbumin 25 gm In 100 ml @ 60 100 / 100 mls/hr IVPB Q8HR [facility] Rx#: [id number] Blood Product 300 / 300 Platelet Ph Acd-A Pasc Lp Irr1 300 / 300 Unit [id number] Rbcs Leuko Poor As-1 Unit 0 / 0 [id number] Output: Catheter 350 / 350 400 / 400 Other: Stool Size Small Stool Consistency soft Stool Characteristics Tarry Stool Color Brown Black # Bowel Movements 1 Blood Glucose* 186 196 General appearance: obese Exam: not oriented - Head Head exam: Present: atraumatic - ENT ENT exam: Present: mucous membranes dry - Respiratory Respiratory exam: Present: CTAB - GI/Abdominal GI/Abdominal exam: Present: normal bowel sounds, soft - Neurological Exam Additional comments: not oriented - Skin Additional comments: bruising Oncology: Obj Data - Labs CBC & Chem 7: 06/16/17 11:48 06/16/17 05:48 Labs: Laboratory Results - last 24 hr 06/15/17 06/15/17 06/16/17 17:02 23:54 05:47 WBC RBC Hgb Hct MCV MCH MCHC RDW Plt Count MPV Immature Gran % Seg Neutrophils % Lymphocytes % Monocytes % Eosinophils % Basophils % Neutrophils # Lymphocytes # Monocytes # Eosinophils # Basophils # Immature Plt Fraction Smear Path Review PT INR Sodium Potassium Chloride Carbon Dioxide BUN Creatinine Est GFR ( Amer) Est GFR (Non-Af Amer) BUN/Creatinine Ratio Glucose POC Glucose 206 H 186 H 178 H Calculated Osmolality Calcium 11/27/17 11/27/17 11/27/17 05:48 05:48 05:48 WBC 4.3 RBC 2.19 L Hgb 7.1 L Hct 21.1 L MCV 96.3 MCH 32.4 MCHC 33.6 RDW 15.8 H Plt Count 28 L* MPV 13.6 H Immature Gran % 0.9 Seg Neutrophils % 67.2 Lymphocytes % 14.6 Monocytes % 14.8 Eosinophils % 2.3 Basophils % 0.2 Neutrophils # 2.9 Lymphocytes # 0.6 Monocytes # 0.6 Eosinophils # 0.1 Basophils # 0.0 Immature Plt Fraction 21.7 H Smear Path Review See Below PT 21.3 H INR 2.0 Sodium 149 H Potassium 4.4 Chloride 113 H Carbon Dioxide 28 BUN 58 H Creatinine 1.69 H Est GFR ( Amer) 47 L Est GFR (Non-Af Amer) 39 L BUN/Creatinine Ratio 34 H Glucose 167 H POC Glucose Calculated Osmolality 328 H Calcium 8.4 L 06/16/17 06/16/17 11:28 11:48 WBC RBC Hgb 6.7 L Hct 20.3 L MCV MCH MCHC RDW Plt Count MPV Immature Gran % Seg Neutrophils % Lymphocytes % Monocytes % Eosinophils % Basophils % Neutrophils # Lymphocytes # Monocytes # Eosinophils # Basophils # Immature Plt Fraction Smear Path Review PT INR Sodium Potassium Chloride Carbon Dioxide BUN Creatinine Est GFR ( Amer) Est GFR (Non-Af Amer) BUN/Creatinine Ratio Glucose POC Glucose 196 H Calculated Osmolality Calcium - Impressions Impressions Echocardiogram 06/16/17 07:52 Impressions: LVEF 45%. Mildly dilated left ventricle. Global left ventricular systolic dysfunction. Mild concentric left ventricular hypertrophy. Indeterminate diastolic function. Atypical septal motion consistent with paced rhythm. Grossly, mildly dilated and hypokinetic right ventricle. Mild pulmonary hypertension. A device lead was visualized in the right atrium and right ventricle. No obvious significant valvular dysfunction. Left Ventricular Wall Motion: Rest Echo Findings The apex, apical inferior, mid inferior, basal inferior, apical anterior, mid anterior, basal anterior, apical septal, mid inferior septal, basal inferior septal, apical lateral, mid anterior lateral, basal anterior lateral, mid anterior septal, mid inferior lateral, basal anterior septal and basal inferior lateral ricks were hypokinetic. Findings: Study Quality * Technically sub-optimal due to clinical status, poor windows. ECG Findings * Paced rhythm. Left Ventricle * LVEF 45%. * Mildly dilated left ventricle. * Global left ventricular systolic dysfunction. * Mild concentric left ventricular hypertrophy. * Indeterminate diastolic function. * Atypical septal motion consistent with paced rhythm. Right Ventricle * Grossly, mildly dilated and hypokinetic right ventricle. Left Atrium * Severely dilated left atrium. Right Atrium * Severely dilated right atrium. Interatrial Septum * Interatrial septum not well evaluated. Aortic Valve * Aortic valve not well visualized. * No aortic regurgitation. * No aortic stenosis. Mitral Valve * Mitral valve not well visualized. * No mitral regurgitation. * No mitral stenosis. Tricuspid Valve * Tricuspid valve not well visualized. * Trace tricuspid regurgitation. * Mild pulmonary hypertension. Pulmonic Valve * Pulmonic valve not well visualized. * No pulmonic regurgitation. Aorta * Normally sized aortic root. Pericardium * The pericardium appears normal. IVC * The IVC is dilated. * Grossly, > 50% respiratory change. Pulmonary Artery * Pulmonary artery not well visualized. Device lead * A device lead was visualized in the right atrium and right ventricle. Liver Ultrasound 06/16/17 13:30 IMPRESSION: Suboptimal evaluation of the liver due to overlying bowel gas and patient motion during imaging. Cholelithiasis without evidence of cholecystitis. No intrahepatic bile duct dilatation. D/ / Troy Andrade / Troy Andrade Interpreting Provider: Troy Andrade - ABG Interpretation ABG results: ABG ABG pH 7.36 pH Units (7.32-7.45) 06/14/17 15:15 ABG pCO2 33 mmHg (35-45) L 06/14/17 15:15 ABG pO2 69 mmHg (85-104) L 06/14/17 15:15 ABG O2 Saturation 93 % (95-98) L 06/14/17 15:15 PT/INR, D-dimer PT 21.3 Seconds (9.4-12.1) H 06/16/17 05:48 Consult Discharge Plan - Plan Referrals: Khadijah Carrasco MD [Family Provider] - [facility] [Primary Care Provider[facility] -
[2017-06-16] MEDS: Pantoprazole 40 MG VIAL IVP SCH (18:09)
[2017-06-16] MEDS: Haloperidol Lactate 5 MG/ML VIAL IVP PRN (23:06)
[2017-06-17] MEDS: Insulin LISPRO 300 UNITS/3 ML VIAL SQ SCH ×4 (01:09→18:08)
[2017-06-17 04:53] LABS: Basophils % 0.2 %; Hematocrit 22.6 % (37.5-50.1); Immature Granulocytes % 0.5 % (0-4); Prothrombin Time 21.5 Seconds (9.4-12.1)
[2017-06-17 04:54] LABS: Eosinophils # 0.1 K/mcL (0.0-0.6); Eosinophils % 2.1 %; Hemoglobin 7.5 g/dL (12.9-16.9); Immature Platelets 22.2 % (1.1-6.1); Lymphocytes # 0.6 K/mcL (0.6-4.6); Lymphocytes % 14.3 %; Mean Corpuscular HGB Conc 33.2 g/dL (31.6-35.5); Mean Corpuscular Hemoglobin 30.9 pg (28.0-33.3); Mean Platelet Volume 10.1 fL (9.4-12.4); Neutrophils # 2.6 K/mcL (1.6-8.9); Red Blood Count 2.43 M/mcL (4.19-5.50); Segmented Neutrophils % 60.9 %
[2017-06-17 04:59] LABS: Platelet Count 30 K/mcL (140-400)
[2017-06-17 05:04] LABS: Calcium 8.3 mg/dL (8.6-10.8); Potassium 4.1 mEq/L (3.5-4.5)
[2017-06-17 05:35] LABS: Platelet Estimate Decreased (Normal)
[2017-06-17] MEDS: Pantoprazole 40 MG VIAL IVP SCH ×2 (06:37→17:12)
[2017-06-17] MEDS: RisperiDONE-M 1 MG TAB.RAPDIS PO SCH (07:41)
[2017-06-17] MEDS: Levothyroxine Sodium 100 MCG VIAL IVP SCH (07:41)
[2017-06-17] MEDS: Lactulose Oral Soln 20 GM/30 ML UDC PO SCH ×3 (07:41→22:21)
[2017-06-17] MEDS: Nystatin SUSP 5 ML UD.LIQ PO SCH ×3 (07:41→22:21)
[2017-06-17] MEDS: D5% in Water 1,000 ML IVC SCH ×2 (07:42→18:07)
--- NOTE | 2017-06-17 11:18 | Pulmonology Progress Note ---
<Anat Gonzalez - Last Filed: 06/17/17 11:13> Date of Encounter: 06/17/17 Time of Encounter: 11:15 Assessment and Plan (1) Acute blood loss anemia Current Visit: Yes Status: Resolved Hemoglobin 5.0 on admission. 7.5 today. 2 BMs yesterday of melena. No hematochezia. -Likely related to anticoagulation use and thrombocytopenia. -Patient needs GI evaluation with EGD and colonoscopy. Family agrees to reverse DNI for these procedures. -We will begin bowel prep today at 6 PM with fleet enemas until clear, and a second round of enemas at 4 AM tomorrow on June 18 for EGD and colonoscopy tomorrow by Dr. Lin. -Patient's platelet count 30 after receiving 1 unit of platelets yesterday. Hemoglobin 7.5 today up from 6.7 yesterday after receiving 2 units of RBCs. -Follow-up CBC, H&H, and continue to hold anticoagulation. -Protonix 40 mg IV twice a day. -Powerglide IV access for transfusions. -Follow-up CT of chest without contrast, CT of abdomen and pelvis without contrast ordered 06/17. -Patient stable for transfer to [facility]. (2) Thrombocytopenia Current Visit: Yes Status: Acute Platelet count 30 today.. -Received 1 unit of platelets yesterday which totals 2 during this admission. -Continue to follow hematology recommendations to transfuse platelets if less than 30,000. -FU ct abd/pelvis to assess abdominal distension and thrombocytopenia. (3) Respiratory failure with hypoxia Current Visit: Yes Status: Acute Patient with occasional desaturation noted-oxygen saturation 100% on 2 L nasal cannula currently. -Likely multifactorial including fluid overload from transfusion and decreased mentation related to medication use. -Given patient's mental status, noninvasive ventilation is not a good option. Patient is DNRCCADNI. -Patient with crackles likely atelectasis. Encourage patient to sit up more. -Lasix on hold due to JARETH on CKD. -Ct of chest without contrast 06/17 to assess for volume loss vs PNA vs fluid overload. -Patient stable for transfer to Qualifiers: Chronicity: unspecified Qualified Code(s): J96.91 - Respiratory failure, unspecified with hypoxia (4) Acute kidney injury superimposed on chronic kidney disease Current Visit: Yes Status: Acute Patient creatinine 1.98 up from 1.69 yesteray, but down from admission 2.18. -Continue hydration with D5W at 100 mls per hour as patient was hypernatremic yesterday. -Patient with good urinary output. -Hold diuresis until creatinine improves. (5) Confusion and disorientation Current Visit: Yes Status: Acute -Hepatic encephalopathy versus medications. Patient's ammonia was 72 on admission. -Awaiting GI evaluation. -We will avoid benzodiazepine use. Give Haldol 1 mg when necessary agitation. -Continue to monitor. -Liver ultrasound views of liver are obstructed secondary to likely bowel gas. -Will proceed to CT abd and pelvis without contrast to assess belly distension and thrombocytopenia. (6) Elevated troponin Current Visit: Yes Status: Acute -Elevated troponin at 1.1 initially. Elevations have been adynamic. -Cardiology thinks it is likely due to demand ischemia. -Echocardiogram on 06/16/2017 shows LVEF of 45%. Also there is mild dilation of the left ventricle with global left ventricular systolic dysfunction and ventricular hypertrophy. (7) Coronary artery disease Current Visit: Yes Status: Chronic Patient with past medical history four-vessel CABG in the past. Qualifiers: Coronary Disease-Associated Artery/Lesion type: [place] artery [place] vs. transplanted heart: [place] heart Associated angina: without angina Qualified Code(s): I25.10 - Atherosclerotic heart disease of [place] coronary artery without angina pectoris (8) Diabetes mellitus Current Visit: Yes Status: Acute Insulin sliding scale with frequent glucose monitoring. Qualifiers: Diabetes mellitus type: type 2 Diabetes mellitus complication status: with unspecified complications Diabetes mellitus residential insulin use: without tank terminal gauger use Qualified Code(s): E11.8 - Type 2 diabetes mellitus with unspecified complications (9) Hypothyroidism Current Visit: Yes Status: Chronic Patient with history of hypothyroidism and currently taking Synthroid 125 mg by mouth daily at home. -We will give IV Synthroid at 63 mg as patient is nothing by mouth for potential colonoscopy and EGD. Qualifiers: Hypothyroidism type: acquired Qualified Code(s): E03.9 - Hypothyroidism, unspecified (10) DVT prophylaxis Current Visit: Yes Status: Acute EPCDs Subjective Principal diagnosis: Acute Blood Loss Anemia Interval history: Patient continuing to be more awake and alert, and less agitated. His confusion seems improved and he expresses understanding and questions asked by nursing. Per discussion with patient's family last night, they are comfortable reversing the DNI for EGD and colonoscopy tomorrow. Patient is satting 99 to 100% on 3 L of nasal cannula. Objective PUL Vital signs: Last Vital Signs Temp 96.9 F L 06/17/17 07:20 Pulse 68 06/17/17 10:31 Resp 22 06/17/17 10:31 BP 144/68 06/17/17 10:31 Pulse Ox 100 06/17/17 10:31 General appearance: agitated Eyes: nonicteric ENT: oropharynx dry Neck: supple Auscultation: bilateral: rales Cardiovascular: regular rate and rhythm Gastrointestinal: soft, non-tender, other (Hyperactive bowel sounds) Integumentary: normal Extremities: no cyanosis, no edema, pink and warm, pulses normal, other ( Patient with 1 cm healing ulcer on the lateral aspect of his left large toe) Results - Laboratory Findings CBC and BMP: 06/17/17 04:27 06/17/17 04:27 ABG ABG pH 7.36 pH Units (7.32-7.45) 06/14/17 15:15 ABG pCO2 33 mmHg (35-45) L 06/14/17 15:15 ABG pO2 69 mmHg (85-104) L 06/14/17 15:15 ABG O2 Saturation 93 % (95-98) L 06/14/17 15:15 PT/INR, D-dimer PT 21.5 Seconds (9.4-12.1) H 06/17/17 04:27 Abnormal lab findings: Abnormal lab results RBC 2.43 M/mcL (4.19-5.50) L 06/17/17 04:27 Hgb 7.5 g/dL (12.9-16.9) L 06/17/17 04:27 Hct 22.6 % (37.5-50.1) L 06/17/17 04:27 RDW 17.0 % (11.5-14.5) H 06/17/17 04:27 Plt Count 30 K/mcL (140-400) L* 06/17/17 04:27 Nucleated RBCs/100 WBC 0.5 /100 WBC (0) H 06/14/17 07:59 Platelet Estimate Decreased (Normal) L 06/17/17 04:27 Immature Plt Fraction 22.2 % (1.1-6.1) H 06/17/17 04:27 PT 21.5 Seconds (9.4-12.1) H 06/17/17 04:27 ABG pCO2 33 mmHg (35-45) L 06/14/17 15:15 ABG pO2 69 mmHg (85-104) L 06/14/17 15:15 ABG HCO3 18 mEq/L (21-27) L 06/14/17 15:15 ABG Total CO2 19 mEq/L (20-26) L 06/14/17 15:15 ABG O2 Saturation 93 % (95-98) L 06/14/17 15:15 ABG Base Excess -6 mEq/L (-2 to 3) L 06/14/17 15:15 BUN 49 mg/dL (8-26) H 06/17/17 04:27 Creatinine 1.98 mg/dL (0.72-1.25) H 06/17/17 04:27 Est GFR ( Amer) 39 (> 60) L 06/17/17 04:27 Est GFR (Non-Af Amer) 32 (> 60) L 06/17/17 04:27 Glucose 239 mg/dL (70-99) H 06/17/17 04:27 POC Glucose 229 (58-89) H 06/16/17 23:39 Calculated Osmolality 321 (280-300) H 06/17/17 04:27 Calcium 8.3 mg/dL (8.6-10.8) L 06/17/17 04:27 Iron 221 mcg/dL (65-175) H 06/14/17 18:15 % Saturation 89 % (20-55) H 06/14/17 18:15 Total Bilirubin 1.8 mg/dL (0.2-1.2) H 06/14/17 05:10 AST 440 Units/L (5-34) H 06/14/17 05:10 ALT 523 Units/L (0-55) H 06/14/17 05:10 Lactate Dehydrogenase 2224 Units/L (159-327) H 06/15/17 04:33 Troponin I 1.46 ng/mL (0-0.03) H* 06/14/17 05:10 Serum Total Protein 5.9 g/dL (6.0-8.3) L 06/14/17 05:10 Albumin 2.8 g/dL (3.5-5.0) L 06/14/17 05:10 Albumin/Globulin Ratio 0.9 (1.1-2.2) L 06/14/17 05:10 Vitamin B12 1403 pg/mL (213-816) H 06/14/17 18:15 - Clinical Findings Intake & Output: Intake & Output 06/16/17 06/17/17 06/17/17 23:59 07:59 15:59 Intake Total 1650 / 1650 1000 / 1000 Output Total 300 / 300 300 / 300 Balance 1350 / 1350 700 / 700 Weight 120 kg - VTE Documentation of Mechanical Device: Intermittent pneumatic compression device Consult Discharge Plan - Plan Referrals: Khadijah Carrasco MD [Family Provider] - [facility] Provider[facility] - <Omaira Stanford - Last Filed: 06/17/17 22:30> Date of Encounter: 06/17/17 Objective PUL Vital signs: Last Vital Signs Temp 98.4 F 06/17/17 20:55 Pulse 61 06/17/17 18:00 Resp 20 06/17/17 18:00 BP 126/112 06/17/17 18:00 Pulse Ox 100 06/17/17 18:00 Results - Laboratory Findings CBC and BMP: 06/17/17 04:27 06/17/17 04:27 ABG ABG pH 7.36 pH Units (7.32-7.45) 06/14/17 15:15 ABG pCO2 33 mmHg (35-45) L 06/14/17 15:15 ABG pO2 69 mmHg (85-104) L 06/14/17 15:15 ABG O2 Saturation 93 % (95-98) L 06/14/17 15:15 PT/INR, D-dimer PT 21.5 Seconds (9.4-12.1) H 06/17/17 04:27 Abnormal lab findings: Abnormal lab results RBC 2.43 M/mcL (4.19-5.50) L 06/17/17 04:27 Hgb 7.5 g/dL (12.9-16.9) L 06/17/17 04:27 Hct 22.6 % (37.5-50.1) L 06/17/17 04:27 RDW 17.0 % (11.5-14.5) H 06/17/17 04:27 Plt Count 30 K/mcL (140-400) L* 06/17/17 04:27 Nucleated RBCs/100 WBC 0.5 /100 WBC (0) H 06/14/17 07:59 Platelet Estimate Decreased (Normal) L 06/17/17 04:27 Immature Plt Fraction 22.2 % (1.1-6.1) H 06/17/17 04:27 PT 21.5 Seconds (9.4-12.1) H 06/17/17 04:27 ABG pCO2 33 mmHg (35-45) L 06/14/17 15:15 ABG pO2 69 mmHg (85-104) L 06/14/17 15:15 ABG HCO3 18 mEq/L (21-27) L 06/14/17 15:15 ABG Total CO2 19 mEq/L (20-26) L 06/14/17 15:15 ABG O2 Saturation 93 % (95-98) L 06/14/17 15:15 ABG Base Excess -6 mEq/L (-2 to 3) L 06/14/17 15:15 BUN 49 mg/dL (8-26) H 06/17/17 04:27 Creatinine 1.98 mg/dL (0.72-1.25) H 06/17/17 04:27 Est GFR ( Amer) 39 (> 60) L 06/17/17 04:27 Est GFR (Non-Af Amer) 32 (> 60) L 06/17/17 04:27 Glucose 239 mg/dL (70-99) H 06/17/17 04:27 POC Glucose 239 (58-89) H 06/17/17 17:31 Calculated Osmolality 321 (280-300) H 06/17/17 04:27 Calcium 8.3 mg/dL (8.6-10.8) L 06/17/17 04:27 Iron 221 mcg/dL (65-175) H 06/14/17 18:15 % Saturation 89 % (20-55) H 06/14/17 18:15 Total Bilirubin 1.8 mg/dL (0.2-1.2) H 06/14/17 05:10 AST 440 Units/L (5-34) H 06/14/17 05:10 ALT 523 Units/L (0-55) H 06/14/17 05:10 Lactate Dehydrogenase 2224 Units/L (159-327) H 06/15/17 04:33 Troponin I 1.46 ng/mL (0-0.03) H* 06/14/17 05:10 Serum Total Protein 5.9 g/dL (6.0-8.3) L 06/14/17 05:10 Albumin 2.8 g/dL (3.5-5.0) L 06/14/17 05:10 Albumin/Globulin Ratio 0.9 (1.1-2.2) L 06/14/17 05:10 Vitamin B12 1403 pg/mL (213-816) H 06/14/17 18:15 - Clinical Findings Intake & Output: Intake & Output 06/17/17 06/17/17 06/17/17 07:59 15:59 23:59 Intake Total 1000 / 1000 Output Total 300 / 300 250 / 250 225 / 225 Balance 700 / 700 -250 / -250 -225 / -225 Weight 120 kg - Attending Attestation I saw the patient with the resident agree with History and Physical exam findings. Labs and Radiology were reviewed Patient is spontaneously breathing on Nasal cannula ON SITE COORDINATOR: Patient is conscious following commands but has some episodic confusion NECK : No JVD appreciated Pulmonary : Patient is hypoxic respiratory failure on NC cannula secondary to Acute on Chronic Systolic heart failure , NSTEMI appreciate cardiology recs not a candidate for C could not diurese him because of worsening kideny function Cardiac : Atrial fibrillation rate controlled , Acute on Chronic systolic heart failure with latest ECHO shows EF of 40% in the setting of GI bleed will hold off diuresis for now Nutrition/GI: Patient is NPO , PPI IV BID family is Ok if needs to be intubated for procedures but in ideal situation wants patient to make the decision making . liver Ultrasound was done. is going to do EGD in GI pulm suite Renal : JARETH slowly improving Heme onc : Acute Blood loss anemia to keep Hb 7-8 , Platelets around 30,000 will revaluate in the morning whether he will need more products before endoscopy ID : No acute issues Disposition :Patient oxygenation and hemodynamic status was stable will transfer to Code status: DNRA DNI Family/POA: Family was updated
[2017-06-17] MEDS ORDERED: D5% in Water 1,000 ML IVC SCH (11:45)
--- NOTE | 2017-06-17 13:41 | Event Note ---
Date of Encounter: 06/17/17 Time of Encounter: 13:40 - Cardiology Event Note Echo resulted--LVEF 45%. Mildly dilated left ventricle. Global left ventricular systolic dysfunction. Mild concentric left ventricular hypertrophy. Indeterminate diastolic function. Atypical septal motion consistent with paced rhythm. Grossly, mildly dilated and hypokinetic right ventricle. Mild pulmonary hypertension. A device lead was visualized in the right atrium and right ventricle. No obvious significant valvular dysfunction. Previous EF 50%, not a significant change. Continue management per primary team. Cardiology signing off. Reconsult PRN. Will coordinate outpt follow-up
[2017-06-17] MEDS ORDERED: Naloxone 0.4 MG/ML INJ IVP PRN (14:56)
[2017-06-17] MEDS ORDERED: Dextrose Gel 15 GM PO PRN ×2 (14:56)
[2017-06-17] MEDS ORDERED: *HR* Dextrose 50 % in Water (Syg) 50 ML SYRINGE IVP PRN (14:56)
[2017-06-17] MEDS ORDERED: Ondansetron 4 MG/2 ML VIAL IVP PRN (14:56)
[2017-06-17] MEDS ORDERED: Haloperidol Lactate 5 MG/ML VIAL IVP PRN (14:56)
[2017-06-17] MEDS ORDERED: D5% in Water 1,000 ML IVC PRN (14:56)
--- NOTE | 2017-06-17 22:19 | Anesthesia Evaluation PreOp ---
Date of Encounter: 06/18/17 Time of Encounter: 22:17 - Past History Planned Operation: EGD/Colonoscopy Cardiac History: Denies any Significant Hx, [place], CHF, HTN, Hyperlipidemia, Arrhythmia (Afib), Cardiac Surgery (CABG 1997), Pacemaker/ICD (AICD/Pacemaker? - Sick sinus syndrome due to sinoatrial node dysfunction), Other Pulmonary History: Former smoker, Other ( Respiratory failure with hypoxia on 2 L nasal cannula currently.) PATIENT PORTAL REPRESENTATIVE History: Other (A/D) Other Medical History: Renal (CRD), Bleeding (Received 2 units platelets and 6 units blod this admission (since 06/13). 2 PRBC and 1 Platelet 06/16), Diabetes Type II, Thyroid (Hypothyroid), GERD, Other (Severe Thromboctopenia, GI Bleed,) Anesthesia History: No Prior Anesthetic Complications, Past Anesthesia ( appendectomy, coronary bypass (CABG), pacemaker/AICD) Alcohol Use: none Drug use: none Medications and Allergies Apixaban [Eliquis] 2.5 mg PO BID 06/13/17 [History] Aspirin 81 mg PO DAILY 06/13/17 [History] Atorvastatin Calcium [Lipitor] 20 mg PO HS 06/13/17 [History] Carvedilol 3.125 mg PO BID 06/13/17 [History] Cholecalciferol (D-3) [Vitamin D] 2,000 unit PO DAILY 06/13/17 [History] Collagenase Oint [Santyl] 1 appl TP DAILY 06/13/17 [History] Furosemide [Lasix] 30 mg PO BID 06/13/17 [History] Levothyroxine [Synthroid] 125 mcg PO 0630 06/13/17 [History] Lidocaine Patch [Lidoderm 5% patch] 1 each TP DAILY 06/13/17 [History] Naloxone HCl [Narcan] 4 mg NS AD PRN 06/13/17 [History] Polyethylene Glycol 3350 [MiraLAX] 17 gm PO DAILY PRN 06/13/17 [History] Pregabalin [Lyrica] 75 mg PO AD 06/13/17 [History] Sod Chloride/B-6/Zinc Acet/Ca [Wound Cleanser] 1 - 3 spray TP DAILY 06/13/17 [ History] 3 Allergy/AdvReac Type Severity Reaction Status Date / Time ciprofloxacin [From Cipro] AdvReac Unknown Verified 06/13/17 19:28 - Meds/Allergy Pre-op Review Medications Reviewed: Yes Allergies Reviewed: Yes Beta Blockers on Current Med List: No If Beta Blockers taken, Date/Time (Last Dose taken): Anesthesia Results - Labs 06/17/17 04:27 06/17/17 04:27 Echo with Imaging Enhancement Agent Name: Faye Lynn Date of Study: 06/16/2017 Date: 1935 Ht: 74.0 in Medical Record#: [id number] Age: 82 Wt: 269.0 lb Indications: Atrial fibrillation, Elevated troponin Impressions: LVEF 45%. Mildly dilated left ventricle. Global left ventricular systolic dysfunction. Mild concentric left ventricular hypertrophy. Indeterminate diastolic function. Atypical septal motion consistent with paced rhythm. Grossly, mildly dilated and hypokinetic right ventricle. Mild pulmonary hypertension. A device lead was visualized in the right atrium and right ventricle. No obvious significant valvular dysfunction. 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 PACEMAKER) Anesthesia Exam O2 Sat Weight 120 kg O2 Sat by Pulse Oximetry 100 O2 Sat by Pulse Oximetry 98 O2 Sat by Pulse Oximetry 99 O2 Sat by Pulse Oximetry 94 O2 Sat by Pulse Oximetry 100 O2 Sat by Pulse Oximetry 100 O2 Sat by Pulse Oximetry 100 O2 Sat by Pulse Oximetry 99 O2 Sat by Pulse Oximetry 98 O2 Sat by Pulse Oximetry 98 O2 Sat by Pulse Oximetry 98 O2 Sat by Pulse Oximetry 98 O2 Sat by Pulse Oximetry 99 O2 Sat by Pulse Oximetry 97 O2 Sat by Pulse Oximetry 97 O2 Sat by Pulse Oximetry 98 Vital Signs Temp Pulse Resp BP Pulse Ox 97.6 F 80 20 111/52 99 06/13/17 16:17 06/13/17 16:17 06/13/17 16:17 06/13/17 16:17 06/13/17 16:17 Vital Signs/O2 Sat, Most Current Temp Pulse Resp BP Pulse Ox 98.4 F 61 20 126/112 100 06/17/17 20:55 06/17/17 18:00 06/17/17 18:00 06/17/17 18:00 06/17/17 18:00 Height: 6' Weight: 264# NPO (# of Hours): > 8 hrs Pain Scale: 0 Pain Scale Used: Numeric (1 - 10) - HEENT Pupil (Motor): Pupils equal, EOMI Mallampati: III (unable to evaluate do to patient cooperation) Teeth: Edentulous Oral Opening: Greater than 3 - PATIENT PORTAL REPRESENTATIVE LOC: Confused PATIENT PORTAL REPRESENTATIVE Motor: Normal RUE, Normal LUE, Normal RLE, Normal LLE, Normal Face PATIENT PORTAL REPRESENTATIVE Sensory: Normal: RUE, LUE, RLE, LLE, Face - Cardiac Rhythm: Irregular Murmur: None JVD: No Carotid Bruit: No - Pulmonary Breath Sounds: bilateral Clear Respiratory Effort: Symmetrical Anesthesia Assess/Plan ASA Score: 4 Modified [place] Scale for Level of Consciousness: Drowsy, but responsive to commands Anesthetic Plan: MAC (Consent obtained from Leslie Lynn ()) Autologous Blood: Yes Monitoring Plan: Standard Monitors Recovery Plan: Other
[2017-06-18] MEDS: Insulin LISPRO 300 UNITS/3 ML VIAL SQ SCH ×4 (00:40→18:08)
[2017-06-18 04:31] LABS: Mean Corpuscular HGB Conc 32.1 g/dL (31.6-35.5); Mean Corpuscular Hemoglobin 30.5 pg (28.0-33.3); Red Cell Distribution Width 16.4 % (11.5-14.5)
[2017-06-18 04:33] LABS: Basophils % 0.2 %; Eosinophils # 0.2 K/mcL (0.0-0.6); Eosinophils % 4.5 %; Hematocrit 23.4 % (37.5-50.1); Hemoglobin 7.5 g/dL (12.9-16.9); Immature Granulocytes % 1.1 % (0-4); Immature Platelets 27.5 % (1.1-6.1); Lymphocytes # 0.7 K/mcL (0.6-4.6); Lymphocytes % 12.3 %; Mean Corpuscular Volume 95.1 fL (83.0-100.0); Mean Platelet Volume 13.6 fL (9.4-12.4); Monocytes # 0.9 K/mcL (0.0-1.3); Monocytes % 17.8 %; Neutrophils # 3.4 K/mcL (1.6-8.9); Nucleated Red Blood Cells 0.4 /100 WBC (0); Red Blood Count 2.46 M/mcL (4.19-5.50); Segmented Neutrophils % 64.1 %
[2017-06-18 04:34] LABS: INR 1.8; Prothrombin Time 19.3 Seconds (9.4-12.1)
[2017-06-18] MEDS: D5% in Water 1,000 ML IVC SCH (04:36)
[2017-06-18 04:46] LABS: Calcium 8.1 mg/dL (8.6-10.8); Potassium 3.8 mEq/L (3.5-4.5)
[2017-06-18 05:05] LABS: Platelet Count 32 K/mcL (140-400)
[2017-06-18 05:46] LABS: Platelet Estimate Marked Decrease (Normal)
[2017-06-18] MEDS: Pantoprazole 40 MG VIAL IVP SCH ×2 (06:15→18:12)
--- NOTE | 2017-06-18 07:49 | General Surgery Progress Note ---
Date of Encounter: 06/18/17 Time of Encounter: 07:48 - Assessment and Plan (1) Lower GI bleeding Current Visit: Yes Status: Acute plan for C-scope this AM enemas this AM Subjective Patient reports: no new complaints, other (mental status significantly improved) Objective Vital Signs - Last 8 Hours Temp Pulse Resp BP Pulse Ox 06/18/17 05:00 98.0 F 06/18/17 04:00 73 20 111/53 100 06/18/17 02:00 77 16 111/53 100 06/18/17 00:09 97.5 F L 06/18/17 00:00 74 Intake and Output 06/17/17 06/17/17 06/18/17 15:59 23:59 07:59 Intake Total 1000 / 1000 Output Total 250 / 250 225 / 225 575 / 575 Balance -250 / -250 -225 / -225 425 / 425 Intake: IV Fluids 1000 / 1000 Dextrose 5% 1,000 ML @ 100 mls/ 1000 / 1000 hr IVC .Q10H CAIN Rx#:[id number] Output: Catheter 250 / 250 225 / 225 575 / 575 Other: Stool Size Large Stool Consistency loose liquid Stool Characteristics Tarry # Bowel Movement Diapers 3 Weight 123.4 kg Blood Glucose* 212 228 Patient Weight 06/18/17 23:59 Weight 123.4 kg - General physical appearance well developed, well nourished - Respiratory normal expansion, normal respiratory effort - Cardiovascular Cardiovascular exam: Present: RRR - Abdomen Abdomen: Present: soft, non tender - Neurologic CN 2-12 grossly intact - Labs 06/18/17 04:15 06/18/17 04:15 Diabetes panel 06/18/17 Range/Units 04:15 Sodium 142 (136-145) mEq/L Potassium 3.8 (3.5-4.5) mEq/L Chloride 106 (98-109) mEq/L Carbon Dioxide 28 (19-29) mEq/L BUN 46 H (8-26) mg/dL Creatinine 1.68 H (0.72-1.25) mg/dL Glucose 269 H (70-99) mg/dL Calcium 8.1 L (8.6-10.8) mg/dL Calcium panel 06/18/17 Range/Units 04:15 Calcium 8.1 L (8.6-10.8) mg/dL Pituitary panel 06/18/17 Range/Units 04:15 Sodium 142 (136-145) mEq/L Potassium 3.8 (3.5-4.5) mEq/L Chloride 106 (98-109) mEq/L Carbon Dioxide 28 (19-29) mEq/L BUN 46 H (8-26) mg/dL Creatinine 1.68 H (0.72-1.25) mg/dL Glucose 269 H (70-99) mg/dL Calcium 8.1 L (8.6-10.8) mg/dL Adrenal panel 06/18/17 Range/Units 04:15 Sodium 142 (136-145) mEq/L Potassium 3.8 (3.5-4.5) mEq/L Chloride 106 (98-109) mEq/L Carbon Dioxide 28 (19-29) mEq/L BUN 46 H (8-26) mg/dL Creatinine 1.68 H (0.72-1.25) mg/dL Glucose 269 H (70-99) mg/dL Calcium 8.1 L (8.6-10.8) mg/dL - VTE Documentation of Mechanical Device: Intermittent pneumatic compression device Consult Discharge Plan - Plan Referrals: Khadijah Carrasco MD [Family Provider] - [facility] [Primary Care Provider[facility] -
--- NOTE | 2017-06-18 08:22 | Pulmonology Progress Note ---
Date of Encounter: 06/18/17 Time of Encounter: 07:40 Assessment and Plan (1) Respiratory failure with hypoxia Current Visit: Yes Status: Acute Qualifiers: Chronicity: unspecified Qualified Code(s): J96.91 - Respiratory failure, unspecified with hypoxia (2) Confusion and disorientation Current Visit: Yes Status: Acute (3) Acute blood loss anemia Current Visit: Yes Status: Resolved (4) Thrombocytopenia Current Visit: Yes Status: Acute (5) Hypothyroidism Current Visit: Yes Status: Chronic Qualifiers: Hypothyroidism type: acquired Qualified Code(s): E03.9 - Hypothyroidism, unspecified (6) Elevated troponin Current Visit: Yes Status: Acute (7) Coronary artery disease Current Visit: Yes Status: Chronic Qualifiers: Coronary Disease-Associated Artery/Lesion type: [place] artery [place] vs. transplanted heart: [place] heart Associated angina: without angina Qualified Code(s): I25.10 - Atherosclerotic heart disease of [place] coronary artery without angina pectoris (8) Diabetes mellitus Current Visit: Yes Status: Acute Qualifiers: Diabetes mellitus type: type 2 Diabetes mellitus complication status: with unspecified complications Diabetes mellitus [facility] insulin use: without terminal press operator use Qualified Code(s): E11.8 - Type 2 diabetes mellitus with unspecified complications (9) DVT prophylaxis Current Visit: Yes Status: Acute Subjective Principal diagnosis: Acute Blood Loss Anemia Objective PUL Vital signs: Last Vital Signs Temp 97.6 F 06/18/17 07:48 Pulse 66 06/18/17 08:00 Resp 20 06/18/17 08:00 BP 145/53 06/18/17 08:00 Pulse Ox 100 06/18/17 08:00 Results - Laboratory Findings CBC and BMP: 06/18/17 04:15 06/18/17 04:15 ABG ABG pH 7.36 pH Units (7.32-7.45) 06/14/17 15:15 ABG pCO2 33 mmHg (35-45) L 06/14/17 15:15 ABG pO2 69 mmHg (85-104) L 06/14/17 15:15 ABG O2 Saturation 93 % (95-98) L 06/14/17 15:15 PT/INR, D-dimer PT 19.3 Seconds (9.4-12.1) H 06/18/17 04:15 Abnormal lab findings: Abnormal lab results RBC 2.46 M/mcL (4.19-5.50) L 06/18/17 04:15 Hgb 7.5 g/dL (12.9-16.9) L 06/18/17 04:15 Hct 23.4 % (37.5-50.1) L 06/18/17 04:15 RDW 16.4 % (11.5-14.5) H 06/18/17 04:15 Plt Count 32 K/mcL (140-400) L 06/18/17 04:15 MPV 13.6 fL (9.4-12.4) H 06/18/17 04:15 Nucleated RBCs/100 WBC 0.4 /100 WBC (0) H 06/18/17 04:15 Platelet Estimate Marked Decrease (Normal) L 06/18/17 04:15 Immature Plt Fraction 27.5 % (1.1-6.1) H 06/18/17 04:15 PT 19.3 Seconds (9.4-12.1) H 06/18/17 04:15 ABG pCO2 33 mmHg (35-45) L 06/14/17 15:15 ABG pO2 69 mmHg (85-104) L 06/14/17 15:15 ABG HCO3 18 mEq/L (21-27) L 06/14/17 15:15 ABG Total CO2 19 mEq/L (20-26) L 06/14/17 15:15 ABG O2 Saturation 93 % (95-98) L 06/14/17 15:15 ABG Base Excess -6 mEq/L (-2 to 3) L 06/14/17 15:15 BUN 46 mg/dL (8-26) H 06/18/17 04:15 Creatinine 1.68 mg/dL (0.72-1.25) H 06/18/17 04:15 Est GFR ( Amer) 47 (> 60) L 06/18/17 04:15 Est GFR (Non-Af Amer) 39 (> 60) L 06/18/17 04:15 BUN/Creatinine Ratio 27 (6-26) H 06/18/17 04:15 Glucose 269 mg/dL (70-99) H 06/18/17 04:15 POC Glucose 228 (58-89) H 06/17/17 23:22 Calculated Osmolality 315 (280-300) H 06/18/17 04:15 Calcium 8.1 mg/dL (8.6-10.8) L 06/18/17 04:15 Iron 221 mcg/dL (65-175) H 06/14/17 18:15 % Saturation 89 % (20-55) H 06/14/17 18:15 Total Bilirubin 1.8 mg/dL (0.2-1.2) H 06/14/17 05:10 AST 440 Units/L (5-34) H 06/14/17 05:10 ALT 523 Units/L (0-55) H 06/14/17 05:10 Lactate Dehydrogenase 2224 Units/L (159-327) H 06/15/17 04:33 Troponin I 1.46 ng/mL (0-0.03) H* 06/14/17 05:10 Serum Total Protein 5.9 g/dL (6.0-8.3) L 06/14/17 05:10 Albumin 2.8 g/dL (3.5-5.0) L 06/14/17 05:10 Albumin/Globulin Ratio 0.9 (1.1-2.2) L 06/14/17 05:10 Vitamin B12 1403 pg/mL (213-816) H 06/14/17 18:15 - Clinical Findings Intake & Output: Intake & Output 06/17/17 06/18/17 06/18/17 23:59 07:59 15:59 Intake Total 1000 / 1000 Output Total 225 / 225 775 / 775 Balance -225 / -225 225 / 225 Weight 123.4 kg - VTE Documentation of Mechanical Device: Intermittent pneumatic compression device Consult Discharge Plan - Plan Referrals: Khadijah Carrasco MD [Family Provider] - [facility] [Primary Care Provider] -
[2017-06-18] MEDS ORDERED: Levothyroxine Sodium 100 MCG VIAL IVP SCH (09:00)
[2017-06-18] MEDS ORDERED: RisperiDONE-M 1 MG TAB.RAPDIS PO SCH (09:00)
--- NOTE | 2017-06-18 10:00 | Pulmonology Progress Note ---
<Brandon Cooper - Last Filed: 06/18/17 13:33> Date of Encounter: 06/18/17 Time of Encounter: 09:57 Assessment and Plan (1) Respiratory failure with hypoxia Current Visit: Yes Status: Acute Patient with occasional desaturation noted-oxygen saturation 97% on 3 L nasal cannula currently. Likely multifactorial including fluid overload from transfusion and decreased mentation related to medication use. Given patient's mental status, noninvasive ventilation is not a good option. Patient is DNRCCADNI. Patient with crackles likely atelectasis. Encourage patient to sit up more. Lasix on hold due to JARETH on CKD. Ct of chest without contrast reveals multifocal patchy ground-glass opacity, concerning for multifocal infection. Small left effusion. Patient stable for transfer to Qualifiers: Chronicity: unspecified Qualified Code(s): J96.91 - Respiratory failure, unspecified with hypoxia (2) Acute blood loss anemia Current Visit: Yes Status: Resolved Hemoglobin 5.0 on admission. 7.5 today after receiving 6 units of RBCs total during this admission. 2 BMs yesterday of melena. No hematochezia. Likely related to anticoagulation use and thrombocytopenia. GI evaluation with EGD and colonoscopy today. Family agrees to reverse DNI for these procedures. Follow-up CBC, H&H, and continue to hold anticoagulation. Protonix 40 mg IV twice a day. Powerglide IV access for transfusions. Patient stable for transfer to [facility]. (3) Thrombocytopenia Current Visit: Yes Status: Acute Platelet count 32 today. Received 2 units of platelets during this admission. Continue to follow hematology recommendations to transfuse platelets if less than 30,000. (4) Coronary artery disease Current Visit: Yes Status: Chronic Echo resulted--LVEF 45%., mildly dilated left ventricle with global left ventricular systolic dysfunction. Atypical septal motion consistent with paced rhythm. Grossly, mildly dilated and hypokinetic right ventricle. Mild pulmonary hypertension. Previous EF 50%, not a significant change. Patient with past medical history four-vessel CABG in the past. Cardiology signing off, coordinate outpt cardio follow-up Qualifiers: Coronary Disease-Associated Artery/Lesion type: [place] artery [place] vs. transplanted heart: [place] heart Associated angina: without angina Qualified Code(s): I25.10 - Atherosclerotic heart disease of [place] coronary artery without angina pectoris (5) Elevated troponin Current Visit: Yes Status: Acute Elevated troponin at 1.1 initially. Elevations have been adynamic. Cardiology attributes this to demand ischemia. Echocardiogram on 06/16/2017 shows LVEF of 45%. Also there is mild dilation of the left ventricle with global left ventricular systolic dysfunction and ventricular hypertrophy. (6) Acute kidney injury superimposed on chronic kidney disease Current Visit: Yes Status: Acute Patient's creatinine slowly improving, down from 2.18 at admission. Continue hydration with LR at 5) mls per hour Patient with good urinary output. Hold diuresis until creatinine improves. (7) Diabetes mellitus Current Visit: Yes Status: Acute Insulin sliding scale with frequent glucose monitoring. Qualifiers: Diabetes mellitus type: type 2 Diabetes mellitus complication status: with unspecified complications Diabetes mellitus custodial insulin use: without custodial use Qualified Code(s): E11.8 - Type 2 diabetes mellitus with unspecified complications (8) Confusion and disorientation Current Visit: Yes Status: Acute Hepatic encephalopathy versus medications. Patient's ammonia was 72 on admission. We will avoid benzodiazepine use. Give Haldol 1 mg when necessary agitation. Continue to monitor. Liver ultrasound views of liver are obstructed secondary to likely bowel gas. CT abd and pelvis without contrast reveals nonobstructing calculus in the left renal pelvis. Cholelithiasis. (9) Hypothyroidism Current Visit: Yes Status: Chronic Patient with history of hypothyroidism and currently taking Synthroid 125 mg by mouth daily at home. Qualifiers: Hypothyroidism type: acquired Qualified Code(s): E03.9 - Hypothyroidism, unspecified (10) DVT prophylaxis Current Visit: Yes Status: Acute Subjective Principal diagnosis: Acute Blood Loss Anemia Interval history: Patient seen and examined resting comfortably in bed, and less agitated. Anticipate transfer out of ICU after EGD and colonoscopy this AM. Objective PUL Vital signs: Last Vital Signs Temp 97.6 F 06/18/17 07:48 Pulse 66 06/18/17 08:00 Resp 20 06/18/17 08:00 BP 145/53 06/18/17 08:00 Pulse Ox 100 06/18/17 08:00 General appearance: no acute distress Eyes: nonicteric ENT: oropharynx dry Neck: supple, no JVD Effort: normal Auscultation: bilateral: clear Percussion: bilateral: not dull Cardiovascular: regular rate and rhythm Gastrointestinal: normoactive bowel sounds, non-distended Integumentary: other (warm and dry, no lacerations, chronic ecchymosis) Extremities: no cyanosis, no edema Musculoskeletal: no deformities Gait: normal posture non-focal exam affect normal, anxious Results - Laboratory Findings CBC and BMP: 06/18/17 04:15 06/18/17 04:15 ABG ABG pH 7.36 pH Units (7.32-7.45) 06/14/17 15:15 ABG pCO2 33 mmHg (35-45) L 06/14/17 15:15 ABG pO2 69 mmHg (85-104) L 06/14/17 15:15 ABG O2 Saturation 93 % (95-98) L 06/14/17 15:15 PT/INR, D-dimer PT 19.3 Seconds (9.4-12.1) H 06/18/17 04:15 Abnormal lab findings: Abnormal lab results RBC 2.46 M/mcL (4.19-5.50) L 06/18/17 04:15 Hgb 7.5 g/dL (12.9-16.9) L 06/18/17 04:15 Hct 23.4 % (37.5-50.1) L 06/18/17 04:15 RDW 16.4 % (11.5-14.5) H 06/18/17 04:15 Plt Count 32 K/mcL (140-400) L 06/18/17 04:15 MPV 13.6 fL (9.4-12.4) H 06/18/17 04:15 Nucleated RBCs/100 WBC 0.4 /100 WBC (0) H 06/18/17 04:15 Platelet Estimate Marked Decrease (Normal) L 06/18/17 04:15 Immature Plt Fraction 27.5 % (1.1-6.1) H 06/18/17 04:15 PT 19.3 Seconds (9.4-12.1) H 06/18/17 04:15 ABG pCO2 33 mmHg (35-45) L 06/14/17 15:15 ABG pO2 69 mmHg (85-104) L 06/14/17 15:15 ABG HCO3 18 mEq/L (21-27) L 06/14/17 15:15 ABG Total CO2 19 mEq/L (20-26) L 06/14/17 15:15 ABG O2 Saturation 93 % (95-98) L 06/14/17 15:15 ABG Base Excess -6 mEq/L (-2 to 3) L 06/14/17 15:15 BUN 46 mg/dL (8-26) H 06/18/17 04:15 Creatinine 1.68 mg/dL (0.72-1.25) H 06/18/17 04:15 Est GFR ( Amer) 47 (> 60) L 06/18/17 04:15 Est GFR (Non-Af Amer) 39 (> 60) L 06/18/17 04:15 BUN/Creatinine Ratio 27 (6-26) H 06/18/17 04:15 Glucose 269 mg/dL (70-99) H 06/18/17 04:15 POC Glucose 228 (58-89) H 06/17/17 23:22 Calculated Osmolality 315 (280-300) H 06/18/17 04:15 Calcium 8.1 mg/dL (8.6-10.8) L 06/18/17 04:15 Iron 221 mcg/dL (65-175) H 06/14/17 18:15 % Saturation 89 % (20-55) H 06/14/17 18:15 Total Bilirubin 1.8 mg/dL (0.2-1.2) H 06/14/17 05:10 AST 440 Units/L (5-34) H 06/14/17 05:10 ALT 523 Units/L (0-55) H 06/14/17 05:10 Lactate Dehydrogenase 2224 Units/L (159-327) H 06/15/17 04:33 Troponin I 1.46 ng/mL (0-0.03) H* 06/14/17 05:10 Serum Total Protein 5.9 g/dL (6.0-8.3) L 06/14/17 05:10 Albumin 2.8 g/dL (3.5-5.0) L 06/14/17 05:10 Albumin/Globulin Ratio 0.9 (1.1-2.2) L 06/14/17 05:10 Vitamin B12 1403 pg/mL (213-816) H 06/14/17 18:15 - Diagnostic Findings CT scan - chest: report reviewed, image reviewed Additional studies: Echo resulted--LVEF 45%. Mildly dilated left ventricle. Global left ventricular systolic dysfunction. Mild concentric left ventricular hypertrophy. Indeterminate diastolic function. Atypical septal motion consistent with paced rhythm. Grossly, mildly dilated and hypokinetic right ventricle. Mild pulmonary hypertension. A device lead was visualized in the right atrium and right ventricle. No obvious significant valvular dysfunction. - Clinical Findings Intake & Output: Intake & Output 06/17/17 06/18/17 06/18/17 23:59 07:59 15:59 Intake Total 1000 / 1000 Output Total 225 / 225 775 / 775 Balance -225 / -225 225 / 225 Weight 123.4 kg - VTE Documentation of Mechanical Device: Intermittent pneumatic compression device Consult Discharge Plan - Plan Referrals: Khadijah Carrasco MD [Family Provider] - [facility] Provider[facility] - <Omaira Stanford - Last Filed: 06/18/17 19:53> Date of Encounter: 06/18/17 Objective PUL Vital signs: Last Vital Signs Temp 97.6 F 06/18/17 15:45 Pulse 98 06/18/17 15:45 Resp 22 06/18/17 15:45 BP 134/63 06/18/17 15:45 Pulse Ox 95 06/18/17 15:45 Results - Laboratory Findings CBC and BMP: 06/18/17 04:15 06/18/17 04:15 ABG ABG pH 7.37 pH Units (7.32-7.45) 06/18/17 17:18 ABG pCO2 49 mmHg (35-45) H 06/18/17 17:18 ABG pO2 65 mmHg (85-104) L 06/18/17 17:18 ABG O2 Saturation 91 % (95-98) L 06/18/17 17:18 PT/INR, D-dimer PT 19.3 Seconds (9.4-12.1) H 06/18/17 04:15 Abnormal lab findings: Abnormal lab results RBC 2.46 M/mcL (4.19-5.50) L 06/18/17 04:15 Hgb 7.5 g/dL (12.9-16.9) L 06/18/17 04:15 Hct 23.4 % (37.5-50.1) L 06/18/17 04:15 RDW 16.4 % (11.5-14.5) H 06/18/17 04:15 Plt Count 32 K/mcL (140-400) L 06/18/17 04:15 MPV 13.6 fL (9.4-12.4) H 06/18/17 04:15 Nucleated RBCs/100 WBC 0.4 /100 WBC (0) H 06/18/17 04:15 Platelet Estimate Marked Decrease (Normal) L 06/18/17 04:15 Immature Plt Fraction 27.5 % (1.1-6.1) H 06/18/17 04:15 PT 19.3 Seconds (9.4-12.1) H 06/18/17 04:15 ABG pCO2 49 mmHg (35-45) H 06/18/17 17:18 ABG pO2 65 mmHg (85-104) L 06/18/17 17:18 ABG HCO3 29 mEq/L (21-27) H 06/18/17 17:18 ABG Total CO2 30 mEq/L (20-26) H 06/18/17 17:18 ABG O2 Saturation 91 % (95-98) L 06/18/17 17:18 BUN 46 mg/dL (8-26) H 06/18/17 04:15 Creatinine 1.68 mg/dL (0.72-1.25) H 06/18/17 04:15 Est GFR ( Amer) 47 (> 60) L 06/18/17 04:15 Est GFR (Non-Af Amer) 39 (> 60) L 06/18/17 04:15 BUN/Creatinine Ratio 27 (6-26) H 06/18/17 04:15 Glucose 269 mg/dL (70-99) H 06/18/17 04:15 POC Glucose 129 (58-89) H 06/18/17 17:20 Calculated Osmolality 315 (280-300) H 06/18/17 04:15 Calcium 8.1 mg/dL (8.6-10.8) L 06/18/17 04:15 Iron 221 mcg/dL (65-175) H 06/14/17 18:15 % Saturation 89 % (20-55) H 06/14/17 18:15 Total Bilirubin 1.8 mg/dL (0.2-1.2) H 06/14/17 05:10 AST 440 Units/L (5-34) H 06/14/17 05:10 ALT 523 Units/L (0-55) H 06/14/17 05:10 Lactate Dehydrogenase 2224 Units/L (159-327) H 06/15/17 04:33 Troponin I 1.46 ng/mL (0-0.03) H* 06/14/17 05:10 Serum Total Protein 5.9 g/dL (6.0-8.3) L 06/14/17 05:10 Albumin 2.8 g/dL (3.5-5.0) L 06/14/17 05:10 Albumin (PEP) 3.47 g/dL (3.75-5.01) L 06/14/17 18:15 Albumin/Globulin Ratio 0.9 (1.1-2.2) L 06/14/17 05:10 Vitamin B12 1403 pg/mL (213-816) H 06/14/17 18:15 - Clinical Findings Intake & Output: Intake & Output 06/18/17 06/18/17 06/18/17 07:59 15:59 23:59 Intake Total 1000 / 1000 500 / 500 60 / 60 Output Total 775 / 775 600 / 600 Balance 225 / 225 -100 / -100 60 / 60 Weight 123.4 kg - Attending Attestation I saw the patient with the resident agree with History and Physical exam findings. 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: Patient is conscious following commands but has some episodic confusion NECK : No JVD appreciated Pulmonary : Patient is hypoxic respiratory failure on NC cannula secondary to Acute on Chronic Systolic heart failure , NSTEMI appreciate cardiology recs not a candidate for [facility] Cardiac : Atrial fibrillation rate controlled , Acute on Chronic systolic heart failure with latest ECHO shows EF of 40% in the setting of GI bleed will hold off diuresis for now Nutrition/GI: Patient is NPO , PPI IV BID Patient had EGD which didnt show any evidence of bleeding , colonoscopy was done as the scope was in ascending colon procedure was aborted due to hypoxia . Renal : JARETH slowly improving Heme onc : Acute Blood loss anemia to keep Hb 7-8 , ID : No acute issues Disposition :Patient oxygenation and hemodynamic status was stable will transfer to floor Code status: DNRA DNI Family/POA: Family was updated
[2017-06-18 10:13] LABS: Alpha 2 Globulin (PEP) 0.55 g/dL (0.48-1.05); Beta Globulin (PEP) 0.67 g/dL (0.48-1.10)
[2017-06-18] MEDS ORDERED: *HR* Propofol 200 MG/20 ML VIAL IVP ONE (10:15)
[2017-06-18] MEDS ORDERED: Ondansetron 4 MG/2 ML VIAL ONE (10:15)
[2017-06-18] MEDS: Ringers Solution, Lactated 1,000 ML IVC SCH ×2 (10:57→12:44)
[2017-06-18] MEDS ORDERED: 0.9 % Sodium Chloride 1,000 ML IVC SCH (11:15)
--- NOTE | 2017-06-18 12:06 | Operative Note ---
Date of procedure: 06/18/17 Pre-op diagnosis: lower GI bleeding Post-op diagnosis: same Procedure: esophagogastroduodenoscopy, colonoscopy Implants: none Complications: none Anesthesia: MAC Surgeon: Vladislav Lin Estimated blood loss (cc): 0 Specimen: none Condition: stable Disposition: ICU Procedure in Detail: Patient was brought into the operating room suite. Mechanical DVT prophylaxis was applied. Underwent smooth induction of MAC, placed in the L lateral decubitus position. A time out was held identifying correct patient, pathology , procedures, and physician. EGD: started with inserting the scope into the patient's mouth. I went further into the stomach and then into the 2nd portion of the duodenum. the duodenum did not reveal any evidence of bleeding. No ulcers, no evidence of inflammation. The pylorus was open. The stomach was unremarkable as well. I retroflexed and saw the GE junction. There is a small hiatal hernia. I then retracted the scope. There was no inflammation of the esophagus. It was also unremarkable for any pathology. colonoscopy: I inserted the scope. Throughout my investigation my view was obscured by poor preparation. I was able to reach the distal ascending colon, right at the splenic flexure. As i approched the distal ascending colon I encountered a large puddle of stool. I was unable to suction the contents completely due to its viscosity. It kept clogging the scope. despite multiple attempts at unclogging, my suction function was not working. It was a this point that I aborted the procedure due to inability to visualize clearly and safely. From my limited view, there was no identifiable pathology. The patient tolerated the procedure well and was escorted back to the ICU in stable condition.
[2017-06-18 12:44] LABS: IFE Reflexed NOT DONE
[2017-06-18] MEDS: Lactulose Oral Soln 20 GM/30 ML UDC PO SCH ×2 (13:08→21:26)
[2017-06-18] MEDS: Nystatin SUSP 5 ML UD.LIQ PO SCH ×3 (13:08→21:19)
[2017-06-18 17:21] LABS: ABG Base Excess 3 mEq/L (-2 to 3); ABG HCO3 29 mEq/L (21-27); ABG Oxygen Saturation 91 % (95-98); ABG PCO2 49 mmHg (35-45); ABG PH 7.37 pH Units (7.32-7.45); ABG PO2 65 mmHg (85-104); ABG TCO2 30 mEq/L (20-26)
[2017-06-18] MEDS ORDERED: Naloxone 0.4 MG/ML INJ IVP PRN (17:28)
[2017-06-18] MEDS ORDERED: Dextrose Gel 15 GM PO PRN ×2 (17:28)
[2017-06-18] MEDS ORDERED: Haloperidol Lactate 5 MG/ML VIAL IVP PRN (17:28)
[2017-06-18] MEDS ORDERED: *HR* Dextrose 50 % in Water (Syg) 50 ML SYRINGE IVP PRN (17:28)
[2017-06-18] MEDS ORDERED: Ringers Solution, Lactated 1,000 ML IVC SCH (17:28)
[2017-06-18] MEDS ORDERED: Ondansetron 4 MG/2 ML VIAL IVP PRN (17:28)
[2017-06-19] MEDS: Insulin LISPRO 300 UNITS/3 ML VIAL SQ SCH ×4 (01:14→17:50)
[2017-06-19] MEDS: Pantoprazole 40 MG VIAL IVP SCH (06:53)
[2017-06-19] MEDS: Nystatin SUSP 5 ML UD.LIQ PO SCH ×4 (10:52→21:21)
[2017-06-19] MEDS: RisperiDONE-M 1 MG TAB.RAPDIS PO SCH (10:53)
--- NOTE | 2017-06-19 10:59 | Internal Med Progress Note ---
Date of Encounter: 06/19/17 Time of Encounter: 08:00 - Assessment and plan (1) Respiratory failure with hypoxia Current Visit: Yes Status: Acute Assessment and plan: Due to pneumonia as well as mild pleural effusion cont bronchodilators cont O2.. try to wean him off as he tolerates Chest PT will start him on empirical abx Cefepime Qualifiers: Chronicity: unspecified Qualified Code(s): J96.91 - Respiratory failure, unspecified with hypoxia (2) Pneumonia Current Visit: Yes Status: Acute Assessment and plan: mostly aspirational will do swallow eval he did have low grade tep 100.0 this morning started him on empirical abx Cefepime Qualifiers: Pneumonia type: aspiration pneumonia Qualified Code(s): J69.0 - Pneumonitis due to inhalation of food and vomit (3) GI bleed Current Visit: Yes Status: Acute Assessment and plan: s/p EGD - no acute signs of bleeding switch to PO PPI Qualifiers: GI bleed type/associated pathology: unspecified gastrointestinal hemorrhage type Qualified Code(s): K92.2 - Gastrointestinal hemorrhage, unspecified (4) Acute blood loss anemia Current Visit: Yes Status: Resolved Assessment and plan: improved and stable Hb @ 7.5 cont close monitoring so far received 6 U PRBC (5) Thrombocytopenia Current Visit: Yes Status: Acute Assessment and plan: unclear etiology Liver US , CT of abd - did not show any liver pathology Heme Onc following d/c ASA and Eliquis (6) Coronary artery disease Current Visit: Yes Status: Chronic Assessment and plan: cont home med Coreg.. Held ASA due to Anemia / GI bleed Qualifiers: Coronary Disease-Associated Artery/Lesion type: [place] artery [place] vs. 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 not in decompensation held lasix due to his, poor PO intake, and JARETH..Need hydration Qualifiers: Qualified Code(s): I50.42 - Chronic combined systolic (congestive) and diastolic (congestive) heart failure (10) Acute kidney injury superimposed on chronic kidney disease Current Visit: Yes Status: Acute Assessment and plan: His baseline Cr 1.04 in 06/2014 No labs since then to compare Definitely concerned for CKD..with super imposed JARETH now cont gentle hydration only due to combined CHF encourage more PO intake (11) A-fib Current Visit: Yes Status: Chronic Assessment and plan: rate controlled with B mckenna not a good candidate for anti coag due to GI Bleed Qualifiers: Atrial fibrillation type: chronic Qualified Code(s): I48.2 - Chronic atrial fibrillation - Subjective Interval history: Mr. Lynn is a 82 year old male with past medical history significant for atrial fibrillation on chronic anticoagulation with Eliquis, CHF, CAD, GERD, hypertension, hyperlipidemia, diabetes, chronic renal insufficiency was brought to the hospital for evaluation of weakness and rectal bleeding. Pt was admitted to the regular floor and received 2 U platelets and 6 U PRBC. Also pt was transferred to ICU due to his hypoxic resp failure. He did got EGD by Dr. Lin on 06/18/17 showed no signs of active bleeding, except small hiatal hernia. Today pt is more alert, awake and O to self. Denied any CP / SOB. He is currently on 3 lit O2 through NC - Constitutional Vitals: Temp Pulse Resp BP Pulse Ox 98.5 F 65 16 118/63 90 06/19/17 07:04 06/19/17 07:04 06/19/17 07:04 06/19/17 07:04 06/19/17 07:04 General appearance: Present: A&O X 2, morbidly obese - Head Head exam: Present: atraumatic, normal inspection - Neck Neck exam general surgery: Present: supple - Respiratory Respiratory exam: Present: decreased breath sounds, rhonchi (mild), wheezes ( mild). Absent: rales, respiratory distress - Cardiovascular Cardiovascular exam: Present: RRR, +S1, +S2. Absent: systolic murmur - GI/Abdominal GI/Abdominal exam: Present: normal bowel sounds, soft. Absent: rebound, rigid, tenderness - Extremities Exam Extremities exam: Present: pedal edema (trace). Absent: calf tenderness, tenderness - Back Exam Back exam: Absent: CVA tenderness (L), CVA tenderness (R) - Neurological Exam Neurological exam: Present: alert, oriented X3 - Psychiatric Psychiatric exam: Present: depressed Internal Medicine: Result - Labs CBC & Chem 7: 06/18/17 04:15 06/18/17 04:15 - ABG Interpretation ABG results: ABG ABG pH 7.37 pH Units (7.32-7.45) 06/18/17 17:18 ABG pCO2 49 mmHg (35-45) H 06/18/17 17:18 ABG pO2 65 mmHg (85-104) L 06/18/17 17:18 ABG O2 Saturation 91 % (95-98) L 06/18/17 17:18 PT/INR, D-dimer PT 19.3 Seconds (9.4-12.1) H 06/18/17 04:15 - VTE Documentation of Mechanical Device: Intermittent pneumatic compression device Consult Discharge Plan - Plan Referrals: Khadijah Carrasco MD [Family Provider] - [facility] [[facility] Care Provider[facility] -
[2017-06-19] MEDS: Lactulose Oral Soln 20 GM/30 ML UDC PO SCH ×2 (11:07→21:20)
[2017-06-19 11:23] LABS: Albumin 2.7 g/dL (3.5-5.0); Albumin/Globulin Ratio 0.9 (1.1-2.2); Bilirubin,Total 1.1 mg/dL (0.2-1.2); Calcium 7.9 mg/dL (8.6-10.8); Globulin 2.9 g/dL (2.4-3.5); Potassium 3.1 mEq/L (3.5-4.5); Total Protein 5.6 g/dL (6.0-8.3)
--- NOTE | 2017-06-19 12:11 | General Surgery Progress Note ---
Date of Encounter: 06/19/17 Time of Encounter: 12:08 - Assessment and Plan (1) Lower GI bleeding Current Visit: Yes Status: Acute stat xray to assess for free air if negative, advance diet as tolerated repeat h/h in PM replete electrolytes activity as tolerated if h/h stable, then do not check AM h/h if still tolerating diet in AM, then okay to d/c if stable from standpoint of primary team - follow up with surgery 2 weeks after discharge for repeat C-scope after adequate bowel prep Subjective Patient reports: no new complaints, other (abdominal cramping, likely from insufflation from c-scopy) Objective Vital Signs - Last 8 Hours Temp Pulse Resp BP Pulse Ox 06/19/17 07:04 98.5 F 65 16 118/63 90 06/19/17 04:43 98.5 F 87 14 173/71 92 Intake and Output 06/18/17 06/19/17 06/19/17 23:59 07:59 15:59 Intake Total 60 / 60 0 / 0 Output Total 0 / 0 200 / 200 Balance 60 / 60 -200 / -200 Intake: Oral 60 / 60 0 / 0 Output: Catheter 0 / 0 200 / 200 Other: Meal Dinner Stool Size Moderate Small Smear Stool Consistency liquid liquid liquid Stool Color Green Green Black Black Black # Bowel Movements 1 1 1 Blood Glucose* 129 192 - General physical appearance well developed, well nourished, no distress - ENT normocephalic - Respiratory normal expansion, normal respiratory effort - Cardiovascular Cardiovascular exam: Present: RRR - Abdomen Abdomen: Present: soft, non tender, tympanic, distended - Neurologic CN 2-12 grossly intact - Psychiatric oriented to time, oriented to person, oriented to place - Labs 06/18/17 04:15 06/19/17 11:00 Diabetes panel 06/19/17 Range/Units 11:00 Sodium 140 (136-145) mEq/L Potassium 3.1 L (3.5-4.5) mEq/L Chloride 105 (98-109) mEq/L Carbon Dioxide 27 (19-29) mEq/L BUN 44 H (8-26) mg/dL Creatinine 1.87 H (0.72-1.25) mg/dL Glucose 180 H (70-99) mg/dL Calcium 7.9 L (8.6-10.8) mg/dL AST 43 H (5-34) Units/L ALT 211 H (0-55) Units/L Alkaline Phosphatase 70 (38-126) Units/L Albumin 2.7 L (3.5-5.0) g/dL Calcium panel 06/19/17 Range/Units 11:00 Calcium 7.9 L (8.6-10.8) mg/dL Albumin 2.7 L (3.5-5.0) g/dL Pituitary panel 06/19/17 Range/Units 11:00 Sodium 140 (136-145) mEq/L Potassium 3.1 L (3.5-4.5) mEq/L Chloride 105 (98-109) mEq/L Carbon Dioxide 27 (19-29) mEq/L BUN 44 H (8-26) mg/dL Creatinine 1.87 H (0.72-1.25) mg/dL Glucose 180 H (70-99) mg/dL Calcium 7.9 L (8.6-10.8) mg/dL Adrenal panel 06/19/17 Range/Units 11:00 Sodium 140 (136-145) mEq/L Potassium 3.1 L (3.5-4.5) mEq/L Chloride 105 (98-109) mEq/L Carbon Dioxide 27 (19-29) mEq/L BUN 44 H (8-26) mg/dL Creatinine 1.87 H (0.72-1.25) mg/dL Glucose 180 H (70-99) mg/dL Calcium 7.9 L (8.6-10.8) mg/dL Total Bilirubin 1.1 (0.2-1.2) mg/dL AST 43 H (5-34) Units/L ALT 211 H (0-55) Units/L Alkaline Phosphatase 70 (38-126) Units/L Albumin 2.7 L (3.5-5.0) g/dL - VTE Documentation of Mechanical Device: Intermittent pneumatic compression device Consult Discharge Plan - Plan Referrals: Khadijah Carrasco MD [Family Provider] - [facility] [Primary Care Provider[facility] -
[2017-06-19] MEDS: Cefepime HCl 1,000 MG in D5% in Water (Mini-Bag+) 100 ML IVPB SCH (14:43)
[2017-06-19] MEDS: 0.9 % Sodium Chloride 1,000 ML IVC SCH (17:50)
[2017-06-19] MEDS: Cefepime HCl 1,000 MG in Water for inj. (sterile) 10 ML IVP SCH (21:20)
[2017-06-20] MEDS: Insulin LISPRO 300 UNITS/3 ML VIAL SQ SCH ×4 (00:53→19:00)
[2017-06-20 04:13] LABS: Hemoglobin 7.7 g/dL (12.9-16.9); Red Cell Distribution Width 15.4 % (11.5-14.5)
[2017-06-20 04:15] LABS: Hematocrit 23.7 % (37.5-50.1); Immature Platelets 26.3 % (1.1-6.1); Mean Corpuscular HGB Conc 32.5 g/dL (31.6-35.5); Mean Corpuscular Hemoglobin 30.8 pg (28.0-33.3); Mean Corpuscular Volume 94.8 fL (83.0-100.0); Mean Platelet Volume 13.1 fL (9.4-12.4); Nucleated Red Blood Cells 4.2 /100 WBC (0)
[2017-06-20 04:31] LABS: Albumin 2.7 g/dL (3.5-5.0); Albumin/Globulin Ratio 0.9 (1.1-2.2); Bilirubin,Total 1.1 mg/dL (0.2-1.2); Calcium 8.1 mg/dL (8.6-10.8); Globulin 3.1 g/dL (2.4-3.5); Magnesium 1.8 mg/dL (1.6-2.6); Potassium 3.1 mEq/L (3.5-4.5); Total Protein 5.8 g/dL (6.0-8.3)
[2017-06-20 05:32] LABS: Platelet Count 90 K/mcL (140-400)
[2017-06-20 05:34] LABS: Large Platelets Present (Not Present); Platelet Estimate Decreased (Normal)
[2017-06-20 05:36] LABS: Eosinophils # 0.5 K/mcL (0.0-0.6); Lymphocytes # 1.6 K/mcL (0.6-4.6); Monocytes # 1.8 K/mcL (0.0-1.3); Neutrophils # 7.5 K/mcL (1.6-8.9); Polychromasia 1+ (Not Present); Reactive Lymphocytes Present (Not Present)
[2017-06-20 05:37] LABS: Anisocytosis 1+ (Not Present)
[2017-06-20] MEDS: 0.9 % Sodium Chloride 1,000 ML IVC SCH (06:50)
[2017-06-20] MEDS: Cefepime HCl 1,000 MG in Water for inj. (sterile) 10 ML IVP SCH ×2 (08:32→20:14)
[2017-06-20] MEDS: Lactulose Oral Soln 20 GM/30 ML UDC PO SCH ×2 (08:33→20:13)
[2017-06-20] MEDS: Nystatin SUSP 5 ML UD.LIQ PO SCH ×4 (08:33→20:14)
[2017-06-20] MEDS: RisperiDONE-M 1 MG TAB.RAPDIS PO SCH (08:33)
--- NOTE | 2017-06-20 09:33 | General Surgery Progress Note ---
Date of Encounter: 06/20/17 Time of Encounter: 09:31 - Assessment and Plan (1) Lower GI bleeding Current Visit: Yes Status: Acute h/h stable; advance diet as tolerated okay for d/c follow up in 2 weeks in clinic for repeat colonoscopy after formal bowel prep Subjective Patient reports: no new complaints, feels better, bowel movement Objective Vital Signs - Last 8 Hours Temp Pulse Resp BP Pulse Ox 06/20/17 06:32 97.7 F 69 17 177/67 96 06/20/17 05:26 146/65 06/20/17 04:19 98.6 F 64 14 168/65 95 Intake and Output 06/19/17 06/20/17 06/20/17 23:59 07:59 15:59 Intake Total 110 / 110 1000 / 1000 0 / 0 Output Total 650 / 650 400 / 400 Balance -540 / -540 600 / 600 0 / 0 Intake: IV Fluids 1000 / 1000 0.9 % Sodium Chloride 1,000 ML 1000 / 1000 @ 75 mls/hr IVC .[id number] CAIN Rx #:[id number] Maxipime 1,000 MG In Water for inj. (sterile) 10 ML @ 150 mls/ hr IVP Q12H CA[facility] Rx#:[id number] Oral 100 / 100 0 / 0 0 / 0 Output: Urine 500 / 500 Catheter 150 / 150 400 / 400 Other: Meal Breakfast Percent of Meal Consumed 10% Stool Size Moderate Stool Consistency loose liquid # Bowel Movements 1 Blood Glucose* 172 185 - General physical appearance well developed, well nourished - ENT normocephalic - Respiratory normal expansion, normal respiratory effort - Cardiovascular Cardiovascular exam: Present: RRR - Abdomen Abdomen: Present: soft, tympanic, distended - Integumentary no rash - Neurologic CN 2-12 grossly intact - Labs 06/20/17 03:46 06/20/17 03:46 Diabetes panel 06/19/17 06/20/17 Range/Units 11:00 03:46 Sodium 140 142 (136-145) mEq/L Potassium 3.1 L 3.1 L (3.5-4.5) mEq/L Chloride 105 107 (98-109) mEq/L Carbon Dioxide 27 26 (19-29) mEq/L BUN 44 H 39 H (8-26) mg/dL Creatinine 1.87 H 1.78 H (0.72-1.25) mg/dL Glucose 180 H 178 H (70-99) mg/dL Calcium 7.9 L 8.1 L (8.6-10.8) mg/dL AST 43 H 40 H (5-34) Units/L ALT 211 H 177 H (0-55) Units/L Alkaline Phosphatase 70 73 (38-126) Units/L Albumin 2.7 L 2.7 L (3.5-5.0) g/dL Calcium panel 06/19/17 06/20/17 Range/Units 11:00 03:46 Calcium 7.9 L 8.1 L (8.6-10.8) mg/dL Albumin 2.7 L 2.7 L (3.5-5.0) g/dL Pituitary panel 06/19/17 06/20/17 Range/Units 11:00 03:46 Sodium 140 142 (136-145) mEq/L Potassium 3.1 L 3.1 L (3.5-4.5) mEq/L Chloride 105 107 (98-109) mEq/L Carbon Dioxide 27 26 (19-29) mEq/L BUN 44 H 39 H (8-26) mg/dL Creatinine 1.87 H 1.78 H (0.72-1.25) mg/dL Glucose 180 H 178 H (70-99) mg/dL Calcium 7.9 L 8.1 L (8.6-10.8) mg/dL Adrenal panel 06/19/17 06/20/17 Range/Units 11:00 03:46 Sodium 140 142 (136-145) mEq/L Potassium 3.1 L 3.1 L (3.5-4.5) mEq/L Chloride 105 107 (98-109) mEq/L Carbon Dioxide 27 26 (19-29) mEq/L BUN 44 H 39 H (8-26) mg/dL Creatinine 1.87 H 1.78 H (0.72-1.25) mg/dL Glucose 180 H 178 H (70-99) mg/dL Calcium 7.9 L 8.1 L (8.6-10.8) mg/dL Total Bilirubin 1.1 1.1 (0.2-1.2) mg/dL AST 43 H 40 H (5-34) Units/L ALT 211 H 177 H (0-55) Units/L Alkaline Phosphatase 70 73 (38-126) Units/L Albumin 2.7 L 2.7 L (3.5-5.0) g/dL - VTE Documentation of Mechanical Device: Intermittent pneumatic compression device Consult Discharge Plan - Plan Referrals: Khadijah Carrasco MD [Family Provider] - [facility],PCP [Primary Care Provider] -
--- NOTE | 2017-06-20 16:13 | Internal Med Progress Note ---
Date of Encounter: 06/20/17 Time of Encounter: 16:10 - Assessment and plan (1) Respiratory failure with hypoxia Current Visit: Yes Status: Acute Assessment and plan: Due to pneumonia as well as mild pleural effusion cont bronchodilators cont O2.. try to wean him off as he tolerates Chest PT Cont empirical abx Cefepime Qualifiers: Chronicity: unspecified Qualified Code(s): J96.91 - Respiratory failure, unspecified with hypoxia (2) Pneumonia Current Visit: Yes Status: Acute Assessment and plan: mostly aspirational Speech therapy on board.. will advance diet as recommended by speech no fever since y/d cont on empirical abx Cefepime Qualifiers: Pneumonia type: aspiration pneumonia Qualified Code(s): J69.0 - Pneumonitis due to inhalation of food and vomit (3) GI bleed Current Visit: Yes Status: Acute Assessment and plan: s/p EGD - no acute signs of bleeding switch to PO PPI Qualifiers: GI bleed type/associated pathology: unspecified gastrointestinal hemorrhage type Qualified Code(s): K92.2 - Gastrointestinal hemorrhage, unspecified (4) Acute blood loss anemia Current Visit: Yes Status: Resolved Assessment and plan: improved and stable Hb @ 7.7 cont close monitoring so far received 6 U PRBC (5) Thrombocytopenia Current Visit: Yes Status: Acute Assessment and plan: unclear etiology Liver US , CT of abd - did not show any liver pathology Heme Onc following d/c ASA and Eliquis (6) Coronary artery disease Current Visit: Yes Status: Chronic Assessment and plan: cont home med Coreg.. Held ASA due to Anemia / GI bleed Qualifiers: Coronary Disease-Associated Artery/Lesion type: [place] artery [place] vs. 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 not in decompensation held lasix due to his, poor PO intake, and JARETH..Need hydration Qualifiers: Qualified Code(s): I50.42 - Chronic combined systolic (congestive) and diastolic (congestive) heart failure (10) Acute kidney injury superimposed on chronic kidney disease Current Visit: Yes Status: Acute Assessment and plan: His baseline Cr 1.04 in 06/2014 No labs since then to compare Definitely concerned for CKD..with super imposed JARETH now Cr improving slowly ..today @ 1.78 encourage more PO intake (11) A-fib Current Visit: Yes Status: Chronic Assessment and plan: rate controlled with B mckenna not a good candidate for anti coag due to GI Bleed Qualifiers: Atrial fibrillation type: chronic Qualified Code(s): I48.2 - Chronic atrial fibrillation (12) Moderate protein-calorie malnutrition Current Visit: Yes Status: Acute Assessment and plan: will check pre albumin level armature rewinder on board (13) Physical deconditioning Current Visit: Yes Status: Acute Assessment and plan: PT / OT eval may need SNF placement for short term PT / OT SW working on it - Subjective Interval history: Mr. Lynn is a 82 year old male with past medical history significant for atrial fibrillation on chronic anticoagulation with Eliquis, CHF, CAD, GERD, hypertension, hyperlipidemia, diabetes, chronic renal insufficiency was brought to the hospital for evaluation of weakness and rectal bleeding. Pt was admitted to the regular floor and received 2 U platelets and 6 U PRBC. Also pt was transferred to ICU due to his hypoxic resp failure. He did got EGD by Dr. Lin on 06/18/17 showed no signs of active bleeding, except small hiatal hernia. Today pt is more alert, awake and O to person and place. Denied any CP / SOB. He is currently on 3 lit O2 through [place] - Constitutional Vitals: Temp Pulse Resp BP Pulse Ox 99.2 F 65 18 136/64 95 06/20/17 14:38 06/20/17 14:38 06/20/17 14:38 06/20/17 14:38 06/20/17 14:38 General appearance: Present: A&O X 2, morbidly obese, no acute distress - Head Head exam: Present: atraumatic, normal inspection - Neck Neck exam general surgery: Present: supple - Respiratory Respiratory exam: Present: decreased breath sounds, rhonchi (mild), wheezes ( mild). Absent: rales, respiratory distress - Cardiovascular Cardiovascular exam: Present: irregular rhythm, +S1, +S2. Absent: tachycardia - GI/Abdominal GI/Abdominal exam: Present: distended, normal bowel sounds, soft. Absent: rebound, rigid, tenderness - Extremities Exam Extremities exam: Present: pedal edema. Absent: calf tenderness, tenderness - Neurological Exam Neurological exam: Present: alert, oriented X3 - Psychiatric Psychiatric exam: Present: normal affect, normal mood Internal Medicine: Result - Labs CBC & Chem 7: 06/20/17 03:46 06/20/17 03:46 Labs: Short CBC 06/20/17 Range/Units 03:46 WBC 11.3 H D (4.3-11.1) K/mcL Hgb 7.7 L (12.9-16.9) g/dL Hct 23.7 L (37.5-50.1) % Plt Count 90 L D (140-400) K/mcL Neutrophils # 7.5 (1.6-8.9) K/mcL BMP 06/20/17 03:46 Sodium 142 Potassium 3.1 L Chloride 107 Carbon Dioxide 26 BUN 39 H Creatinine 1.78 H Glucose 178 H Calcium 8.1 L Liver Function 06/20/17 Range/Units 03:46 Total Bilirubin 1.1 (0.2-1.2) mg/dL AST 40 H (5-34) Units/L ALT 177 H (0-55) Units/L Alkaline Phosphatase 73 (38-126) Units/L Albumin 2.7 L (3.5-5.0) g/dL - ABG Interpretation ABG results: ABG ABG pH 7.37 pH Units (7.32-7.45) 06/18/17 17:18 ABG pCO2 49 mmHg (35-45) H 06/18/17 17:18 ABG pO2 65 mmHg (85-104) L 06/18/17 17:18 ABG O2 Saturation 91 % (95-98) L 06/18/17 17:18 PT/INR, D-dimer PT 19.3 Seconds (9.4-12.1) H 06/18/17 04:15 - VTE Documentation of Mechanical Device: Intermittent pneumatic compression device Consult Discharge Plan - Plan Referrals: Khadijah Carrasco MD [Family Provider] - [facility] [Primary Care Provider] -
[2017-06-21] MEDS: Insulin LISPRO 300 UNITS/3 ML VIAL SQ SCH ×5 (02:23→23:37)
[2017-06-21 07:16] LABS: Basophils % 0.4 %; Eosinophils # 0.5 K/mcL (0.0-0.6); Eosinophils % 4.6 %; Hematocrit 24.5 % (37.5-50.1); Hemoglobin 7.7 g/dL (12.9-16.9); Immature Granulocytes % 6.9 % (0-4); Lymphocytes # 1.1 K/mcL (0.6-4.6); Lymphocytes % 10.9 %; Mean Corpuscular HGB Conc 31.4 g/dL (31.6-35.5); Mean Corpuscular Hemoglobin 30.3 pg (28.0-33.3); Mean Corpuscular Volume 96.5 fL (83.0-100.0); Mean Platelet Volume 11.8 fL (9.4-12.4); Monocytes # 1.2 K/mcL (0.0-1.3); Monocytes % 11.6 %; Neutrophils # 6.8 K/mcL (1.6-8.9); Platelet Count 120 K/mcL (140-400); Red Blood Count 2.54 M/mcL (4.19-5.50); Red Cell Distribution Width 15.7 % (11.5-14.5); Segmented Neutrophils % 65.6 %
[2017-06-21 07:29] LABS: Albumin 2.6 g/dL (3.5-5.0); Albumin/Globulin Ratio 0.8 (1.1-2.2); Bilirubin,Total 1.1 mg/dL (0.2-1.2); Globulin 3.2 g/dL (2.4-3.5); Magnesium 1.7 mg/dL (1.6-2.6); Potassium 2.9 mEq/L (3.5-4.5); Total Protein 5.8 g/dL (6.0-8.3)
[2017-06-21 08:01] LABS: Hemoglobin A1C 6.2 %
[2017-06-21] MEDS: RisperiDONE-M 1 MG TAB.RAPDIS PO SCH (09:27)
[2017-06-21] MEDS: Nystatin SUSP 5 ML UD.LIQ PO SCH ×5 (09:28→20:25)
[2017-06-21] MEDS: Lactulose Oral Soln 20 GM/30 ML UDC PO SCH ×2 (09:28→20:25)
[2017-06-21] MEDS: Cefepime HCl 1,000 MG in Water for inj. (sterile) 10 ML IVP SCH ×2 (09:29→20:25)
[2017-06-21] MEDS ORDERED: Furosemide 40 MG/4 ML VIAL IVP ONE (10:35)
--- NOTE | 2017-06-21 10:38 | Internal Med Progress Note ---
Date of Encounter: 06/21/17 Time of Encounter: 10:36 - Assessment and plan (1) Respiratory failure with hypoxia Current Visit: Yes Status: Acute Assessment and plan: Due to pneumonia as well as mild pleural effusion cont bronchodilators cont O2.. try to wean him off as he tolerates will give him one dose IV Lasix today Chest PT Cont empirical abx Cefepime Qualifiers: Chronicity: unspecified Qualified Code(s): J96.91 - Respiratory failure, unspecified with hypoxia (2) Pneumonia Current Visit: Yes Status: Acute Assessment and plan: mostly aspirational Speech therapy on board.. will advance diet as recommended by speech remained afebrile cont on empirical abx Cefepime Qualifiers: Pneumonia type: aspiration pneumonia Qualified Code(s): J69.0 - Pneumonitis due to inhalation of food and vomit (3) GI bleed Current Visit: Yes Status: Acute Assessment and plan: s/p EGD - no acute signs of bleeding switched to PO PPI Qualifiers: GI bleed type/associated pathology: unspecified gastrointestinal hemorrhage type Qualified Code(s): K92.2 - Gastrointestinal hemorrhage, unspecified (4) Acute blood loss anemia Current Visit: Yes Status: Resolved Assessment and plan: improved and stable Hb @ 7.7 cont close monitoring so far received 6 U PRBC (5) Thrombocytopenia Current Visit: Yes Status: Acute Assessment and plan: unclear etiology Improving..today @ 120 Liver US , CT of abd - did not show any liver pathology Heme Onc following d/c ASA and Eliquis (6) Coronary artery disease Current Visit: Yes Status: Chronic Assessment and plan: cont home med Coreg.. Held ASA due to Anemia / GI bleed Qualifiers: Coronary Disease-Associated Artery/Lesion type: [place] artery [place] vs. 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 not in decompensation will give Lasix IV x 1 dose now Qualifiers: Qualified Code(s): I50.42 - Chronic combined systolic (congestive) and diastolic (congestive) heart failure (10) Acute kidney injury superimposed on chronic kidney disease Current Visit: Yes Status: Acute Assessment and plan: His baseline Cr 1.04 in 06/2014 No labs since then to compare Definitely concerned for CKD..with super imposed JARETH now Cr improving slowly ..today @ 1.77 encourage more PO intake (11) A-fib Current Visit: Yes Status: Chronic Assessment and plan: rate controlled with B mckenna not a good candidate for anti coag due to GI Bleed Qualifiers: Atrial fibrillation type: chronic Qualified Code(s): I48.2 - Chronic atrial fibrillation (12) Moderate protein-calorie malnutrition Current Visit: Yes Status: Acute Assessment and plan: will check pre albumin level resaw tailer on board (13) Physical deconditioning Current Visit: Yes Status: Acute Assessment and plan: PT / OT eval may need SNF placement for short term PT / OT SW working on it - Subjective Interval history: Mr. Lynn is a 82 year old male with past medical history significant for atrial fibrillation on chronic anticoagulation with Eliquis, CHF, CAD, GERD, hypertension, hyperlipidemia, diabetes, chronic renal insufficiency was brought to the hospital for evaluation of weakness and rectal bleeding. Pt was admitted to the regular floor and received 2 U platelets and 6 U PRBC. Also pt was transferred to ICU due to his hypoxic resp failure. He did got EGD by Dr. Lin on 06/18/17 showed no signs of active bleeding, except small hiatal hernia. Today pt is more alert, awake and O to person and place. Denied any CP / SOB. He is currently on 3 lit O2 through [place].. No events over night - Constitutional Vitals: Temp Pulse Resp BP Pulse Ox 97.6 F 63 18 134/66 96 06/21/17 06:52 06/21/17 06:52 06/21/17 06:52 06/21/17 06:52 06/21/17 06:52 General appearance: Present: A&O X 3, morbidly obese, no acute distress - Head Head exam: Present: atraumatic, normal inspection - Respiratory Respiratory exam: Present: decreased breath sounds, rales (+), wheezes (mild). Absent: respiratory distress, rhonchi - Cardiovascular Cardiovascular exam: Present: RRR, +S1, +S2. Absent: tachycardia - GI/Abdominal GI/Abdominal exam: Present: normal bowel sounds, soft. Absent: rebound, rigid, tenderness - Extremities Exam Extremities exam: Present: pedal edema (1+). Absent: calf tenderness, tenderness - Back Exam Back exam: Absent: CVA tenderness (L), CVA tenderness (R) - Neurological Exam Neurological exam: Present: alert, oriented X3 - Psychiatric Psychiatric exam: Present: normal affect, normal mood Internal Medicine: Result - Labs CBC & Chem 7: 06/21/17 07:04 06/21/17 07:04 Labs: Short CBC 06/21/17 Range/Units 07:04 WBC 10.4 (4.3-11.1) K/mcL Hgb 7.7 L (12.9-16.9) g/dL Hct 24.5 L (37.5-50.1) % Plt Count 120 L (140-400) K/mcL Neutrophils # 6.8 (1.6-8.9) K/mcL BMP 06/21/17 07:04 Sodium 143 Potassium 2.9 L Chloride 110 H Carbon Dioxide 22 BUN 37 H Creatinine 1.74 H Glucose 167 H Calcium 8.0 L Liver Function 06/21/17 Range/Units 07:04 Total Bilirubin 1.1 (0.2-1.2) mg/dL AST 31 (5-34) Units/L ALT 129 H (0-55) Units/L Alkaline Phosphatase 70 (38-126) Units/L Albumin 2.6 L (3.5-5.0) g/dL - ABG Interpretation ABG results: ABG ABG pH 7.37 pH Units (7.32-7.45) 06/18/17 17:18 ABG pCO2 49 mmHg (35-45) H 06/18/17 17:18 ABG pO2 65 mmHg (85-104) L 06/18/17 17:18 ABG O2 Saturation 91 % (95-98) L 06/18/17 17:18 PT/INR, D-dimer PT 19.3 Seconds (9.4-12.1) H 06/18/17 04:15 - VTE Documentation of Mechanical Device: Intermittent pneumatic compression device Consult Discharge Plan - Plan Referrals: Khadijah Carrasco MD [Family Provider] - [facility] [Primary Care Provider] -
[2017-06-21] MEDS ORDERED: Furosemide 40 MG/4 ML VIAL ONE (18:22)
[2017-06-21] MEDS: D5% in Water 1,000 ML IVC SCH (20:08)
[2017-06-21] MEDS: Cefepime HCl 1,000 MG in D5% in Water (Mini-Bag+) 100 ML IVPB SCH (20:09)
[2017-06-22 05:32] LABS: Basophils % 0.5 %; Eosinophils # 0.7 K/mcL (0.0-0.6); Eosinophils % 7.9 %; Hematocrit 24.8 % (37.5-50.1); Hemoglobin 7.9 g/dL (12.9-16.9); Immature Granulocytes % 5.6 % (0-4); Lymphocytes # 1.2 K/mcL (0.6-4.6); Mean Corpuscular HGB Conc 31.9 g/dL (31.6-35.5); Mean Corpuscular Hemoglobin 30.6 pg (28.0-33.3); Mean Corpuscular Volume 96.1 fL (83.0-100.0); Mean Platelet Volume 12.6 fL (9.4-12.4); Monocytes % 11.5 %; Neutrophils # 5.5 K/mcL (1.6-8.9); Nucleated Red Blood Cells 2.6 /100 WBC (0); Platelet Count 154 K/mcL (140-400); Red Blood Count 2.58 M/mcL (4.19-5.50); Red Cell Distribution Width 15.9 % (11.5-14.5); Segmented Neutrophils % 61.5 %
[2017-06-22 05:50] LABS: Calcium 8.2 mg/dL (8.6-10.8); Magnesium 1.8 mg/dL (1.6-2.6); Potassium 2.9 mEq/L (3.5-4.5)
[2017-06-22 06:09] LABS: Platelet Estimate Normal (Normal)
[2017-06-22] MEDS: Insulin LISPRO 300 UNITS/3 ML VIAL SQ SCH ×3 (06:21→20:33)
[2017-06-22] MEDS: Cefepime HCl 1,000 MG in Water for inj. (sterile) 10 ML IVP SCH (08:26)
[2017-06-22] MEDS: Nystatin SUSP 5 ML UD.LIQ PO SCH ×4 (08:27→20:38)
[2017-06-22] MEDS: RisperiDONE-M 1 MG TAB.RAPDIS PO SCH (08:28)
[2017-06-22] MEDS: Lactulose Oral Soln 20 GM/30 ML UDC PO SCH ×2 (08:28→20:37)
[2017-06-22] MEDS ORDERED: Furosemide 40 MG/4 ML VIAL IVP ONE (10:27)
--- NOTE | 2017-06-22 10:31 | Internal Med Progress Note ---
Date of Encounter: 06/22/17 Time of Encounter: 10:29 - Assessment and plan (1) Respiratory failure with hypoxia Current Visit: Yes Status: Acute Assessment and plan: Due to pneumonia as well as mild pleural effusion cont bronchodilators cont O2.. try to wean him off as he tolerates will give him another dose IV Lasix today Chest PT Cont empirical abx Cefepime Qualifiers: Chronicity: unspecified Qualified Code(s): J96.91 - Respiratory failure, unspecified with hypoxia (2) Pneumonia Current Visit: Yes Status: Acute Assessment and plan: mostly aspirational Speech therapy on board.. will advance diet as recommended by speech remained afebrile switched to PO Augmentin today Qualifiers: Pneumonia type: aspiration pneumonia Qualified Code(s): J69.0 - Pneumonitis due to inhalation of food and vomit (3) GI bleed Current Visit: Yes Status: Acute Assessment and plan: s/p EGD - no acute signs of bleeding switched to PO PPI Qualifiers: GI bleed type/associated pathology: unspecified gastrointestinal hemorrhage type Qualified Code(s): K92.2 - Gastrointestinal hemorrhage, unspecified (4) Acute blood loss anemia Current Visit: Yes Status: Resolved Assessment and plan: improved and stable Hb @ 7.7 cont close monitoring so far received 6 U PRBC (5) Thrombocytopenia Current Visit: Yes Status: Acute Assessment and plan: unclear etiology Improved..today @ 154 Liver US , CT of abd - did not show any liver pathology d/c ASA and Eliquis (6) Coronary artery disease Current Visit: Yes Status: Chronic Assessment and plan: cont home med Coreg.. Held ASA due to Anemia / GI bleed Qualifiers: Coronary Disease-Associated Artery/Lesion type: [place] artery [place] vs. 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 not in decompensation will give Lasix IV x 1 dose now Qualifiers: Qualified Code(s): I50.42 - Chronic combined systolic (congestive) and diastolic (congestive) heart failure (10) Acute kidney injury superimposed on chronic kidney disease Current Visit: Yes Status: Acute Assessment and plan: His baseline Cr 1.04 in 06/2014 No labs since then to compare Definitely concerned for CKD..with super imposed JARETH now Cr improving slowly ..today @ 1.70 encourage more PO intake (11) A-fib Current Visit: Yes Status: Chronic Assessment and plan: rate controlled with B mckenna not a good candidate for anti coag due to GI Bleed Qualifiers: Atrial fibrillation type: chronic Qualified Code(s): I48.2 - Chronic atrial fibrillation (12) Moderate protein-calorie malnutrition Current Visit: Yes Status: Acute Assessment and plan: will check pre albumin level pathology manager on board (13) Physical deconditioning Current Visit: Yes Status: Acute Assessment and plan: PT / OT eval may need SNF placement for short term PT / OT SW working on it - Subjective Interval history: Mr. Lynn is a 82 year old male with past medical history significant for atrial fibrillation on chronic anticoagulation with Eliquis, CHF, CAD, GERD, hypertension, hyperlipidemia, diabetes, chronic renal insufficiency was brought to the hospital for evaluation of weakness and rectal bleeding. Pt was admitted to the regular floor and received 2 U platelets and 6 U PRBC. Also pt was transferred to ICU due to his hypoxic resp failure. He did got EGD by Dr. Lin on 06/18/17 showed no signs of active bleeding, except small hiatal hernia. Today pt is more alert, awake and O to time, person and place. Denied any CP / SOB. He is currently on 3 lit O2 through [place].. No events over night - Constitutional Vitals: Temp Pulse Resp BP Pulse Ox 98.3 F 60 18 148/62 95 06/22/17 07:19 06/22/17 07:19 06/22/17 07:19 06/22/17 07:19 06/22/17 07:19 General appearance: Present: A&O X 3, morbidly obese, no acute distress - Head Head exam: Present: atraumatic, normal inspection - Respiratory Respiratory exam: Present: decreased breath sounds, wheezes (mild). Absent: rales, respiratory distress, rhonchi - Cardiovascular Cardiovascular exam: Present: RRR, +S1, +S2. Absent: tachycardia - GI/Abdominal GI/Abdominal exam: Present: distended, normal bowel sounds, soft. Absent: rebound, rigid, tenderness - Extremities Exam Extremities exam: Present: pedal edema (improving.. trace). Absent: calf tenderness, tenderness - Back Exam Back exam: Absent: CVA tenderness (L), CVA tenderness (R) - Psychiatric Psychiatric exam: Present: normal affect, normal mood Internal Medicine: Result - Labs CBC & Chem 7: 06/22/17 04:56 06/22/17 04:56 Labs: Short CBC 06/22/17 Range/Units 04:56 WBC 8.9 (4.3-11.1) K/mcL Hgb 7.9 L (12.9-16.9) g/dL Hct 24.8 L (37.5-50.1) % Plt Count 154 (140-400) K/mcL Neutrophils # 5.5 (1.6-8.9) K/mcL BMP 06/22/17 04:56 Sodium 141 Potassium 2.9 L Chloride 108 Carbon Dioxide 25 BUN 35 H Creatinine 1.70 H Glucose 144 H Calcium 8.2 L - ABG Interpretation ABG results: ABG ABG pH 7.37 pH Units (7.32-7.45) 06/18/17 17:18 ABG pCO2 49 mmHg (35-45) H 06/18/17 17:18 ABG pO2 65 mmHg (85-104) L 06/18/17 17:18 ABG O2 Saturation 91 % (95-98) L 06/18/17 17:18 PT/INR, D-dimer PT 19.3 Seconds (9.4-12.1) H 06/18/17 04:15 - VTE Documentation of Mechanical Device: Intermittent pneumatic compression device Consult Discharge Plan - Plan Referrals: Khadijah Carrasco MD [Family Provider] - [facility] [Primary Care Provider] -
[2017-06-23] MEDS: Insulin LISPRO 300 UNITS/3 ML VIAL SQ SCH ×3 (00:52→12:43)
[2017-06-23] MEDS ORDERED: *HR* Morphine 2 MG/ML SYRINGE IVP PRN (03:04)
[2017-06-23 04:11] LABS: Calcium 8.5 mg/dL (8.6-10.8); Magnesium 1.7 mg/dL (1.6-2.6); Potassium 2.9 mEq/L (3.5-4.5)
[2017-06-23] MEDS: RisperiDONE-M 1 MG TAB.RAPDIS PO SCH (08:15)
[2017-06-23] MEDS: Lactulose Oral Soln 20 GM/30 ML UDC PO SCH (08:16)
[2017-06-23] MEDS: Nystatin SUSP 5 ML UD.LIQ PO SCH (08:16)
[2017-06-23 11:17] VITALS: BP 128/60
--- NOTE | 2017-06-23 11:59 | Discharge Summary ---
Date of Encounter: 06/23/17 Time of Encounter: 11:57 - Discharge Diagnosis (1) Respiratory failure with hypoxia Priority: Primary Status: Acute Qualifiers: Chronicity: unspecified Qualified Code(s): J96.91 - Respiratory failure, unspecified with hypoxia (2) Pneumonia Priority: Primary Status: Acute Qualifiers: Pneumonia type: aspiration pneumonia Qualified Code(s): J69.0 - Pneumonitis due to inhalation of food and vomit (3) GI bleed Priority: Primary Status: Acute Qualifiers: GI bleed type/associated pathology: unspecified gastrointestinal hemorrhage type Qualified Code(s): K92.2 - Gastrointestinal hemorrhage, unspecified (4) Acute blood loss anemia Priority: Primary Status: Resolved (5) Thrombocytopenia Priority: Primary Status: Acute (6) Coronary artery disease Priority: Secondary Status: Chronic Qualifiers: Coronary Disease-Associated Artery/Lesion type: [place] artery [place] vs. transplanted heart: rosebud heart Associated angina: without angina Qualified Code(s): I25.10 - Atherosclerotic heart disease of [place] coronary artery without angina pectoris (7) Elevated troponin Priority: Secondary Status: Acute (8) Severe anemia Priority: Secondary Status: Acute (9) Combined systolic and diastolic congestive heart failure Priority: Secondary Status: Acute Qualifiers: Qualified Code(s): I50.42 - Chronic combined systolic (congestive) and diastolic (congestive) heart failure (10) Acute kidney injury superimposed on chronic kidney disease Priority: Secondary Status: Acute (11) A-fib Priority: Secondary Status: Chronic Qualifiers: Atrial fibrillation type: chronic Qualified Code(s): I48.2 - Chronic atrial fibrillation (12) Moderate protein-calorie malnutrition Priority: Secondary Status: Acute (13) Physical deconditioning Priority: Secondary Status: Acute - Discharge Medications Home Medications: Atorvastatin Calcium [Lipitor] 20 mg PO HS 06/13/17 [History] Carvedilol 3.125 mg PO BID 06/13/17 [History] Cholecalciferol (D-3) [Vitamin D] 2,000 unit PO DAILY 06/13/17 [History] Collagenase Oint [Santyl] 1 appl TP DAILY 06/13/17 [History] Levothyroxine [Synthroid] 125 mcg PO 0630 06/13/17 [History] Lidocaine Patch [Lidoderm 5% patch] 1 each TP DAILY 06/13/17 [History] Polyethylene Glycol 3350 [MiraLAX] 17 gm PO DAILY PRN 06/13/17 [History] Pregabalin [Lyrica] 75 mg PO AD 06/13/17 [History] Sod Chloride/B-6/Zinc Acet/Ca [Wound Cleanser] 1 - 3 spray TP DAILY 06/13/17 [ History] Amoxicillin/Clavulanate [Augmentin] 875 mg PO BIDWM 5 Days tablet 06/23/17 [Rx] Furosemide [Lasix] 40 mg PO BID #0 06/23/17 [Rx] Omeprazole [PriLOSEC] 20 mg PO BIDAC capsule. 06/23/17 [Rx] Potassium Chloride 4,020 meq PO BID tab.er.prt 06/23/17 [Rx] Allergies/Adverse Reactions: 3 Allergy/AdvReac Type Severity Reaction Status Date / Time ciprofloxacin [From Cipro] AdvReac Unknown Verified 06/13/17 19:28 Date of admission: 06/13/17 18:21 Primary care physician: [facility] Consults: 06/13/17 23:02 Consult to Physician [CONS] Routine Consulting Provider: Maxime Espinoza Reason for Consult: Acute GI bleed Call Completed: Yes 06/14/17 12:11 Consult to Cardiology [CONS] Routine Comment: Consulting Provider: Cardiology [place] Reason for Consult: ELEVATED TROPONIN Call Completed: Yes 06/15/17 07:46 Consult to Oncology Hematology [CONS] Routine Consulting Provider: Tahira English Reason for Consult: Thrombocytopenia Call Completed: Yes 06/15/17 09:32 Consult to Pulmonology [CONS] Stat Consulting Provider: [facility] [place] Reason for Consult: CRITICAL CARE MANAGEMENT Time Notified: 09:35 Call Completed: Yes 06/16/17 09:39 Consult to Invasive Line Access Team [CONS] Routine Reason for Consult: IV access Line Type: EPIV 06/16/17 11:10 Consult to Speech Therapy [CONS] Routine Comment: Evaluate, develop and implement POC Reason for Consult: swallow evaluation Call Completed: No 06/19/17 16:12 Consult to Occupational Therapy [CONS] Routine Comment: Evaluate, develop and implement POC Reason for Consult: Planning for placement Consult to Physical Therapy [CONS] Routine Comment: Evaluate, develop and implement POC Reason for Consult: Planning for placement Consult to Physician Underwriter [CONS] Routine Reason for SW Consult: Planning for placement - Patient Status Disposition: Transfer SNF Condition: Good Overall status at discharge: patient is not back to baseline - Discharge Instructions Follow Up With: Khadijah Carrasco MD [Family Provider] - [place],PCP [Primary Care Provider] - Omaira Stanford MD [Partnered Physician] - Tahira English MD [Partnered Physician] - Additional Instructions: Need to f/u with PCP in one week Need to f/u GI in 1-2 weeks Need to f/u Pulmonary Dr. Stanford in 1-2 weeks need to f/u with Cardiology in 1-2 weeks Need to f/u with Hem Onc Dr. English in 2-3 weeks - Diet and Activity Activity: as per physical therapy, increase activity as tolerated, wear oxygen at all times (3 lit) Diet: low salt diet Hospital course: Mr. Lynn is a 82 year old male with past medical history significant for atrial fibrillation on chronic anticoagulation with Eliquis, CHF, CAD, GERD, hypertension, hyperlipidemia, diabetes, chronic renal insufficiency was brought to the hospital for evaluation of weakness and rectal bleeding. Pt was admitted to the regular floor and received 2 U platelets and 6 U PRBC. Also pt was transferred to ICU due to his hypoxic resp failure. He had EGD by Dr. Lin on showed no signs of active bleeding, except small hiatal hernia. Pt was transferred back to [facility]. He has been doing well last few days. he happened to have low grade temp, and his CT of chest showed multi focal pneumonia. Started him on empirical abx Cefepime. He remained afebrie since then. 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 Since last 2 days I resumed his Lasix and his symptoms started improving now also his Cr came down to 1.5 today. He does have severe thrombocytopenia with unclear etiology, pt was seen by heme on who recommend to f/u with them as an out pt. Pt was seen by PT / OT who recommend to ECF placement for short term rehab, so will d/c him to ECF in stable condition today. Today pt is more alert, awake and O to time, person and place. Denied any CP / SOB. He is currently on 3 lit O2 through [place]. We d/c his Eliquis since he is high risk for GI bleed. Also held his ASA , however his ASA can be resumed in one week if his Hb stays stable. - Time Spent with Patient Total time spent providing and/or coordinating discharge services: Greater than 30 minutes (spent 40 minutes on this pt's discharge summary due to complex medical problems and needed coordinate the care nursing staff) - Constitutional Vitals: Temp Pulse Resp BP Pulse Ox 97.7 F 59 18 128/60 94 06/23/17 11:16 06/23/17 11:16 06/23/17 11:16 06/23/17 11:16 06/23/17 11:16 General appearance: Present: A&O X 3, morbidly obese, no acute distress - Head Head exam: Present: atraumatic, normal inspection - Respiratory Respiratory exam: Present: decreased breath sounds, wheezes (mild). Absent: rales, respiratory distress, rhonchi - Cardiovascular Cardiovascular exam: Present: RRR, +S1, +S2. Absent: tachycardia - GI/Abdominal GI/Abdominal exam: Present: distended, normal bowel sounds, soft. Absent: rebound, rigid, tenderness - Extremities Exam Extremities exam: Present: pedal edema (improving). Absent: calf tenderness, tenderness - Back Exam Back exam: Absent: CVA tenderness (L), CVA tenderness (R) - Neurological Exam Neurological exam: Present: alert, oriented X3 - Psychiatric Psychiatric exam: Present: normal affect, normal mood - VTE Documentation of Mechanical Device: Intermittent pneumatic compression device
--- NOTE | 2017-06-23 12:08 | Physician Discharge Referral ---
ExtendedCare Referral Info Transfer To: ECF Provider in Charge after Transfer: PCP Institutional Level of Care: Skilled - Diagnosis (1) Respiratory failure with hypoxia Status: Acute (2) Pneumonia Status: Acute (3) GI bleed Status: Acute (4) Acute blood loss anemia Status: Resolved (5) Thrombocytopenia Status: Acute (6) Coronary artery disease Status: Chronic (7) Elevated troponin Status: Acute (8) Severe anemia Status: Acute (9) Combined systolic and diastolic congestive heart failure Status: Acute (10) Acute kidney injury superimposed on chronic kidney disease Status: Acute (11) A-fib Status: Chronic (12) Moderate protein-calorie malnutrition Status: Acute (13) Physical deconditioning Status: Acute - Transfer Medications Home Medications: Atorvastatin Calcium [Lipitor] 20 mg PO HS 06/13/17 [History] Carvedilol 3.125 mg PO BID 06/13/17 [History] Cholecalciferol (D-3) [Vitamin D] 2,000 unit PO DAILY 06/13/17 [History] Collagenase Oint [Santyl] 1 appl TP DAILY 06/13/17 [History] Levothyroxine [Synthroid] 125 mcg PO 0630 06/13/17 [History] Lidocaine Patch [Lidoderm 5% patch] 1 each TP DAILY 06/13/17 [History] Polyethylene Glycol 3350 [MiraLAX] 17 gm PO DAILY PRN 06/13/17 [History] Pregabalin [Lyrica] 75 mg PO AD 06/13/17 [History] Sod Chloride/B-6/Zinc Acet/Ca [Wound Cleanser] 1 - 3 spray TP DAILY 06/13/17 [ History] Amoxicillin/Clavulanate [Augmentin] 875 mg PO BIDWM 5 Days tablet 06/23/17 [Rx] Furosemide [Lasix] 40 mg PO BID #0 06/23/17 [Rx] Omeprazole [PriLOSEC] 20 mg PO BIDAC capsule. 06/23/17 [Rx] Potassium Chloride 4,020 meq PO BID tab.er.prt 06/23/17 [Rx] Allergies/Adverse Reactions: 3 Allergy/AdvReac Type Severity Reaction Status Date / Time ciprofloxacin [From Cipro] AdvReac Unknown Verified 06/13/17 19:28 - Respiratory Orders Smoking Cessation: Smoking cessation has been advised. For more information, call the [place] Tobacco Quit Line at 5-560-AXLR-NOW. CERTIFICATION: I certify that the transfer of the above named patient to an Extended Care Facility is necessary for the continuing treatment of the diagnosis listed. The above information is true and accurate reflection of patient's current condition. Confidential - Redisclosure prohibited without a patient's written consent.
== END 2017-06-23 17:55 | DRG 377 ==
LOC: EMEROO 16:12 → ICNU 18:21 → 3ANU 06-18 15:22
PROVIDERS: ADMIT Internal Medicine; ATTEND Internal Medicine